=== PATIENT | female | born 1960 | race Caucasian/White ===

== ENCOUNTER 2018-02-10 16:16 | Emergency (ER) | payer MEDICAID, SELFPAY ==
[2018-02-10 16:17] VITALS: BP 115/78; PULSE 85; RESP 16; TEMP 36.4; O2SAT 98; BMI 27.4
[2018-02-10 16:20] VITALS: O2SAT 98
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
[2018-02-10] MEDS: 0.9% Normal Saline 1,000 ML 150 ML IV (16:35)
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
[2018-02-10 16:59] LABS: Absolute Lymphocyte Count 3.02 X10^3/ul (0.83-4.51); Absolute Neutrophil Count 9.2 X10^3/uL (2.0-7.7); Basophil# 0.04 X10^3/uL; Basophil% 0.3 % (0-1); Eosinophil# 0.61 X10^3/uL; Eosinophils% 4.5 % (0-5); Hematocrit 35.7 % (37-47); Hemoglobin 10.8 g/dl (12.0-15.0); Lymphocyte # 3.02 X10^3/ul (4.0); Lymphocyte % 22.4 % (19-41); Mean Corp Hgb Conc 30.3 g/gl (32-36); Mean Corpuscular Hgb 29.3 pg (27.0-32.0); Mean Platelet Vol. 11.4 fl (6.2-12.0); Monocyte# 0.64 X10^3/uL; Monocyte% 4.7 % (0-10); Neutrophil # 9.16 X10^3/uL (2.7-7.7); Neutrophil % 67.8 % (47-70); Platelet Count 206 K/mm3 (150-450); RBC Distribution Width SD 49.3 fl (35.1-43.9); Red Blood Count 3.68 M/mm3 (4.2-5.4); White Blood Count 13.5 K/mm3 (4.4-11.0)
[2018-02-10 17:00] LABS: POSITIVE COUNT NO; POSITIVE DIFFERENTIAL NO; POSITIVE MORPHOLOGY NO; Partial Thromboplast Time 27.6 Seconds (24.1-36.2)
[2018-02-10 17:03] LABS: Prothrombin Time (Protime)PT. 13.4 SECONDS (11.7-14.9)
[2018-02-10 17:04] LABS: AST(SGOT) 33 U/L (15-37); Alanine Aminotransfer ALT/SGPT 26 U/L (13-56); Alkaline Phosphatase 94 U/L (45-117); Anion Gap 5 (5-15); BUN 31 mg/dL (7-18); BUN/Creat Ratio 19.5 RATIO (10-20); Bilirubin, Direct 0.09 mg/dL (0.00-0.30); Calcium,Total 8.3 mg/dL (8.5-10.1); Chloride 112 mmol/L (98-107); Creatinine, Serum 1.59 mg/dL (0.55-1.02); EST Glomerular Filtration Rate 35 mL/min (>60); Est Glom Filt Rate - Afr Amer 43 mL/min (>60); Globulin 4.3 g/dL (2.2-4.2); Glucose 156 mg/dL (74-106); Potassium 4.2 mmol/L (3.5-5.1); Protein, Total 7.3 g/dL (6.4-8.2); Sodium Level 141 mmol/L (136-145)
[2018-02-10 17:50] LABS: Mucous, Urine 0 SEEN /hpf (<or=2+)
[2018-02-10 17:55] LABS: Color, Urine Yellow (Yellow); Glucose, Dipstick Normal (Normal); Ketone-Dipstick Negative (Negative); Leukocyte Esterase-Dipstick 100 /ul (Negative); Nitrite-Dipstick Negative (Negative); Occult Blood-Urine 150 /ul (Negative); Protein-Dipstick 100 mg/dl (Negative); Specific Gravity, Urine 1.015 (1.002-1.030); Urine Clarity Cloudy (Clear); Urine Urobilinogen Normal (Normal)
[2018-02-10 18:00] LABS: Urine Bilirubin Dipstick 1 mg/dL (Negative)
--- NOTE | 2018-02-10 18:11 | NURSING ---
YONG JEFFERSON ACCEPTING DR MONIKA BLANK NO REPORT NECESSARY
[2018-02-10 18:15] VITALS: BP 101/40; PULSE 70; RESP 15; O2SAT 97
[2018-02-10 18:16] LABS: Bacteria 1+ /hpf (None Seen); Red Blood Cells-Urine 5-10 SEEN /hpf (0-5); Squamous Epithelial Cells - UA 5-10 SEEN /hpf (5-10); White Blood Cells 10-25 SEEN /hpf (0-5)
[2018-02-10 18:30] VITALS: BP 101/40; PULSE 74; RESP 17; O2SAT 97
--- NOTE | 2018-02-10 19:41 | ED.RN ---
VERBAL REPORT GIVEN TO EMS. DENIES QUESTIONS.
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
== END 2018-02-10 19:42 | disposition short-term general hospital (02) ==
PROVIDERS: Emergency Provider Emergency Medicine; Family Provider Internal Medicine; PCP Internal Medicine
DX: S22.081A Stable burst fracture of T11-T12 vertebra, initial encounter for closed fracture (principal); S32.018A Other fracture of first lumbar vertebra, initial encounter for closed fracture; S30.1XXA Contusion of abdominal wall, initial encounter; S27.321A Contusion of lung, unilateral, initial encounter; V43.62XA Car passenger injured in collision with other type car in traffic accident, initial encounter; Y93.89 Activity, other specified; Y92.9 Unspecified place or not applicable; K21.9 Gastro-esophageal reflux disease without esophagitis; Z86.73 Personal history of transient ischemic attack (TIA), and cerebral infarction without residual deficits; Z87.19 Personal history of other diseases of the digestive system; Z90.5 Acquired absence of kidney; Z79.899 Other long term (current) drug therapy
CPT/HCPCS: 71250; 73130; 73564; 74176; 80048; 80076; 81001; 85025; 85610; 85730; 96360; 96361; 99285; J7030; A4216

== ENCOUNTER → 2018-03-03 11:34 | Outpatient (CLI) | payer MEDICAID, SELFPAY ==
--- NOTE | 2018-03-03 11:36 | VDLE_ITS ---
Reason For Study: LEG SWELLING RIGHT LEFT GSV is normal. GSV is normal. CFV is compressible, spontaneous, phasic, CFV is compressible, spontaneous, phasic, competent and demonstrates normal competent, and demonstrates normal augmentation. augmentation. FV is compressible, spontaneous, phasic, FV is compressible, spontaneous, phasic, competent and demonstrates normal competent and demonstrates normal augmentation. augmentation. POP V is compressible, spontaneous, phasic, POP V is compressible, spontaneous, phasic, competent and demonstrates normal competent and demonstrates normal augmentation. augmentation. T/P Trunk is compressible. T/P Trunk is compressible. PTV is compressible. PTV is compressible. RT PerV is compressible. LT PerV is compressible. Procedure Exam performed in department. A preliminary report was called and/or faxed to Dr. Casper. Interpretation Summary Deep veins of the lower extremities are bilaterally patent and compressible segmentally. There is no evidence of deep vein thrombosis on either side. Valvular competence appears intact within the proximal deep venous systems bilaterally. The greater saphenous veins appear bilaterally patent and compressible segmentally. Ordering Physician: Estefania Casper Performed By: Marilee Aceves RVT
== END ==
PROVIDERS: Family Provider Internal Medicine; PCP Internal Medicine; Visit Provider Internal Medicine
DX: R60.0 Localized edema (principal)
CPT/HCPCS: 93970

== ENCOUNTER → 2018-08-18 09:05 | Outpatient (CLI) | payer MEDICAID, SELFPAY ==
--- NOTE | 2018-08-18 09:09 | RAD_ITS ---
STUDY: X-RAY - LEFT HAND, ATTENTION FOURTH FINGER REASON FOR EXAM: Bent finger, no specific injury. TECHNIQUE: 3 view(s) of the finger were obtained. COMPARISON: None. FINDINGS: Normal metacarpal head. Normal metacarpophalangeal joint. Normal proximal phalanx. Normal middle phalanx. Normal distal phalanx. Normal proximal interphalangeal joint. There is flexion deformity at the distal interphalangeal joint. RAD/Finger(s) Min 2 Views IMPRESSION: Flexion deformity at the distal interphalangeal joint. Electronically Signed: Edison Carrillo MD at 9:35 EDT Tel , Service support ,
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
== END ==
PROVIDERS: Family Provider Internal Medicine; PCP Internal Medicine; Referring Provider Orthopaedic Surgery; Visit Provider Orthopaedic Surgery
DX: M21.242 Flexion deformity, left finger joints (principal); M25.532 Pain in left wrist; M79.602 Pain in left arm
CPT/HCPCS: 73030; 73060; 73090; 73110; 73140

== ENCOUNTER → 2018-10-03 13:54 | Outpatient (CLI) | payer MEDICAID, SELFPAY ==
--- NOTE | 2018-10-03 13:56 | ECHOD_ITS ---
Reason For Study: MVP Procedure This was a 2D Doppler, Color Flow transthoracic echocardiogram. Exam performed in department. Left Ventricle Normal LV size. Left ventricular systolic function is normal. The estimated ejection fraction is 65 %. The global longitudinal strain = -22 % (normal). There is evidence of diastolic dysfunction. No regional wall motion abnormalities noted. Right Ventricle Normal RV size. Normal systolic function. Atria Normal left atrium. Normal right atrium. No doppler evidence for ASD. Mitral Valve There is no mitral annular calcification. Normal mitral valve. Trivial mitral valve insufficiency. Tricuspid Valve Normal tricuspid valve. Mild tricuspid valve insufficiency. Right ventricular systolic pressure estimated to be 39 mmHg. Aortic Valve Trisinus/trileaflet aortic valve. Normal aortic valve. Pulmonic Valve The pulmonic valve is not well visualized. Trivial pulmonic valve insufficiency. Great Vessels Normal sized aortic root. Pericardium/Pleural No pericardial effusion. MMode/2D Measurements & Calculations LVIDd: 4.6 cm IVSd: 0.89 cm Ao root diam: 2.5 cm LVIDs: 3.0 cm LVPWd: 0.80 cm RVDd: 3.1 cm FS: 34.2 % LAV(MOD-bp): 36.6 ml LA A4 area: 16.1 cm2 LA dimension(2D): 3.9 cm LAV(MOD-bp) Indexed: 20.4 ml/m2 LAV(MOD-sp2): 31.4 ml LAV(MOD-sp4): 43.9 ml RA A4 area: 12.0 cm2 Time Measurements MV dec time: 0.19 sec Doppler Measurements & Calculations MV E max lopez: 114.0 cm/sec Lat Peak E' Lopez: 9.8 cm/sec Med Peak E' Lopez: 6.7 cm/sec MV A max lopez: 84.2 cm/sec E/E' lat: 11.6 E/E' med: 17.0 MV E/A: 1.4 Ao V2 max: 132.7 cm/sec LV V1 max: 102.8 cm/sec PA V2 max: 94.1 cm/sec Ao max P.0 mmHg LV V1 max P.2 mmHg PI end-d lopez: 111.1 cm/sec TR max lopez: 301.2 cm/sec TR max P.3 mmHg Interpretation Summary Left ventricular systolic function is normal. The estimated ejection fraction is 65 %. The global longitudinal strain = -22 % (normal). Trivial mitral valve insufficiency. Mild tricuspid valve insufficiency. Trivial pulmonic valve insufficiency. Right ventricular systolic pressure estimated to be 39 mmHg. There is evidence of diastolic dysfunction. Ordering Physician: Reji Fatima Referring Physician: MARIA LUISA TAYLOR Performed By: Surekha Alcazar, CHANTELLCS, RVT
== END ==
PROVIDERS: Family Provider Internal Medicine; PCP Internal Medicine; Referring Provider Internal Medicine Cardiovascular Disease; Visit Provider Internal Medicine Cardiovascular Disease
DX: I34.1 Nonrheumatic mitral (valve) prolapse (principal); I27.29 Other secondary pulmonary hypertension; R55 Syncope and collapse
CPT/HCPCS: 93306

== ENCOUNTER 2018-12-12 12:00 | Outpatient (RCR) | payer MEDICAID, SELFPAY ==
--- NOTE | 2018-08-18 12:21 | HP.OTEVAL_ITS ---
Patient's Visit Information GABINO MILLS is a 58 year old F, referred to Occupational Therapy by Shwetha Meehan DO, with a diagnosis of L RF Mallet Finger. Date of Evaluation: 08/18/18 Occupational Therapist: Mariela Zhao - Subjective Subjective: Arrived s/p Dr. Ghosh visit. Noted she was cutting grass 2 + month ago when first noticing mallet finger. She has since had fall at [employer] over weekend increasing symptoms and bruising L UE. Noted and observed bruising at elbow over olecranon and thenar eminence. No x-rays per Pt. report on these areas just xrays around finger. She has follow up with Dr. Casper later today. Completed all tasks t/o session only as tolerated with pain. She verbalized understanding not to force mvmts. - Objective Objective/Observation: bruising over olecranon, and at thumb at thenar eminence. No open wounds noted and skin intact but bruised. Grimace noted with pinch. and completed within tolerance. - ROM Shoulder: WFL Elbow: WFL- some pain noted Forearm: WFL Wrist: WFL CMC: WFL but some pain noted MP: RF R 0-93, L 0-95 PIP: RF R 0-104, L 0-92 DIP: RF R 0-85 flexion, R ext 0-10 ; L -52--52 forward flexed no active movement ROM Comments: RF L DIP mallet finger deformity with no active movement palpated. Difficulty getting to neutral position. Able to get to neutral and slight hyperext. Difficulty to get into 10-15 degrees hyper ext. Made gutter splint and will adjust later in week as needed. - Strength Home Health Clinical Liaison: R 58, L 44 Lateral Pinch: R 13, L 9- pain increased 2-3 pain. Educated to stop when pain in creased. Tripod Pinch: R 14, L 7- pain increased 2-3 pain. Educated to stop when pain increased. - Sensation Sensation Comments: denies changes in numbness/tinging. - Hand/Wrist Evaluation Total Score of Pain & Functional Sections: 25 - Goals Goal:: Gabino to increased L field marketing associate hand as and when appropriate in/out of splint by 15-20 lbs to promote increased ability to manipulate self care tasks by d/c. Goal:: Gabino to show neutral alignment of L RF DIP to reduce risk of further mallet finger deformity by end of conservative management at 8-10 weeks to promote returning to PLOF by d/c. Goal:: Gabino to be (i) to follow and wear splint consistently for next 8-10 weeks to promote decreased extensor lag and promote alignment of DIP 100% of the time to reduce risk of deformity by d/c. - Rehabilitation General Assessment: OT evaluation on this date 08/18/18. She had original injury to RF about 2 month ago. L RF exhibits increased extensor lag and mallet finger deformity with inability to complete active ROM for flexion or extension at RF DIP. Able to passively move L RF to neutral with increased force but increased difficulty getting to hyperext. position. OT to address splint fit and usage as well as ROM of PIP and MCP to promote decreased stiffness and promote integrity of extensor tendon to help increased ROM L RF and Pt. ability to use L dominant hand for ADl/IADls at PLOF. Rehabilitation Potential: Good - Anticipated Interventions Anticipated Interventions: A/AAROM/PROM, Strengthening, Edema Control, Scar Care, Orthoses, Joint Protection/Energy Conservation, Ergonomic Education, Fine Motor Coord/Paco, ADL Training, Caregiver Training, Home Program - Visit Plan Frequency: 1x this week; 2x after Duration: 3 Weeks General Plan: OT to work on proper splint fit and ensure correct alignment of L RF DIP to decrease extensor lag and promote healing of extensor tendon to decrease risk of deformity of mallet finger. OT to complete ROM, strength, and education to reduce stiffness of other joints and promote returning to PLOF. POC for 3 sessions to promote splint fit and get set up on HEP. TEXT: Thank you for the opportunity to evaluate your patient. For Medicare and Medicare HMO plans, please review the plan of care and approve it. It will need to be FAXED BACK to us at [phone] for Medicare purposes. Please let me know if there are questions or concerns regarding this plan of care. Physician Signature: Date:
--- NOTE | 2018-08-29 11:02 | HP.OTCOM ---
OT Communication Note 08/29/[address] Shwetha Meehan, DO A gutter and stax splint was fabricated for Maryam for Mallet finegr deformity on L RF. She has 3x follow up appointment from initial evaluation to promote fit. Due to h/o CVA and confusion post CVA she has arrived last two session with splint donned incorrectly. Labels on splint, pictures, and practice while in session has been provided. Will continue to work on correct donning of splint but carryover have been variable at this time. Sincerely, Mariela Zhao, OTR/L Contact Information
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
--- NOTE | 2018-10-27 18:27 | OTREVAL_ITS ---
Shwetha Meehan, DO, It has been my pleasure to treat GABINO MILLS over the last 6 visits for L RF Mallet Finger. Please see the progress note below for an update on the occupational therapy plan of care! Subjective: Arrived and noted saw 'Dr. Olvera' and noted things going well. Objective/Function: Completed new measurements on this date and are as follows: ROM: Wrist: - flexion: R WNL, L 0-73. - extension: R WNL , L 0-47. Finger L RF. MCP: R WNL, L 0-77. PIP: R WNL, L 0-106. DIP: R WNL, L 9-0-31- still 9 degrees extensor lag out of brace. Finger is healing is nicely and is addie to be passively moved to neutral alignment. Strength: Hydro Pneumatic Tester R 57, L 35 lbs. Lateral R 12, L 16 lbs. Tripod R 11, L 10 lbs. L RF has significantly increased in alignment and extensor lag is decreased but still slightly noted. She has progressed since inital evaluation with alignment. Plan Frequency: 1x/Week - Splint check Duration: 4 Weeks Visits in this POC: 4 Plan: She is to continue POC. Will complete 1x weekly OT program to promote continue HEP and decreasing frequency of splint use. She is to continue splint at this time for night and daytime use. She is to start removing at night when watching TV or completing light ROM as previously set up as HEP. Educated to watch skin integrity and noted tape stax splint on as tight. Additionally, she was educated to watch for extensor lag and if occurring splint is to be donned. Goals - Goals Goal:: Gabino to increased L loans consultant hand as and when appropriate in/out of splint by 15-20 lbs to promote increased ability to manipulate self care tasks by d/c. Goal:: Gabino to show neutral alignment of L RF DIP to reduce risk of further mallet finger deformity by end of conservative management at 8-10 weeks to promote returning to PLOF by d/c. Goal:: Gabino to be (i) to follow and wear splint consistently for next 8-10 weeks to promote decreased extensor lag and promote alignment of DIP 100% of the time to reduce risk of deformity by d/c. Anticipated Interventions Anticipated Interventions: A/AAROM/PROM, Strengthening, Edema Control, Scar Care, Orthoses, Joint Protection/Energy Conservation, Ergonomic Education, Fine Motor Coord/Paco, ADL Training, Caregiver Training, Home Program Please do not hesitate to contact me at [phone] by phone or if you have questions or concerns regarding this new plan of care! Sincerely, Mariela Zhao
--- NOTE | 2018-11-28 12:49 | OTREVAL_ITS ---
Shwetha Meehan, DO, It has been my pleasure to treat GABINO MILLS over the last 10 visits for L RF Mallet Finger. Please see the progress note below for an update on the occupational therapy plan of care! Subjective: Arrived with no splint on and noted that she is doing well and noted that she 'feels like it is getting droopy' but has not donned splint as mother told her 'it was fine'. Mother not at appointmet. OT has been communicating with handouts of written instructions with Pt. that she reports to also be sharing with mother. She feels finger is 55% back to PLOF. Objective/Function: Re-assessment completed today of 11/28/17. Increased in extensor lag noted from previous measurements. Some discomfort with palpation but able to move to neutral position. Measurements are as follows: ROM. RF. MCP R WNL, L 0-90. PIP R WFL, L -5-0-106. DIP R WFL, L 22-70 with increased in extensor lag to 25 degrees after formation of composite fist. Limited extension of DIP noted with isolation movement. Strength is as follows: Medical Insurance Claims Processor: R 78, L 70 lbs. Lateral: R 12, L 13 lbs. Tripod: R 13, L 10 lbs. Pincer R 9, L 8 lbs. Measurements from previous week of 11/21/18: Extensor lag at arrival at -9. Completed new measurements on this date 11/21/17 and measurements as follows: ROM L hand only: MCP RF 0-90, PF 0-84. PIP RF-7-0-107, PF 0-102. DIP RF 9-53, PF 0-80. Strength : Medical Insurance Claims Processor R 75, L 69. lateral R 12, L 12. tripod R 12, L 11. Extensor lag of 9 degrees consistent throughout activity. Limited extension of DIP noted with isolation movement. Lag does not appear to increase with movement but remains consistent at listed measurements. 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 She is able to retain material gone over in session but carryover at home is variable. Plan Frequency: Every Other Week Duration: 4 Weeks Visits in this POC: 2 Plan: After reassessment and increased extensor lag from previous measurements she will have 2x more follow ups every other week for next four weeks. SHe is to complete reducing time in splint by removing splint [id number] mins, and if no drooping occurs can keep off for 30 mins. During time splint is off, she is to be misti taping finger. 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 She is able to retain material gone over in session but carryover at home is variable. Multiple handouts have been provided for her and mother to complete carryover Goals - Goals Goal:: Gabino to increased L remote pilot operator hand as and when appropriate in/out of splint by 15-20 lbs to promote increased ability to manipulate self care tasks by d/c. Goal:: Gabino to show neutral alignment of L RF DIP to reduce risk of further mallet finger deformity by end of conservative management at 8-10 weeks to promote returning to PLOF by d/c. Goal:: Gabino to be (i) to follow and wear splint consistently for next 8-10 weeks to promote decreased extensor lag and promote alignment of DIP 100% of the time to reduce risk of deformity by d/c. Anticipated Interventions Anticipated Interventions: A/AAROM/PROM, Strengthening, Edema Control, Scar Care, Orthoses, Joint Protection/Energy Conservation, Ergonomic Education, Fine Motor Coord/Paco, ADL Training, Caregiver Training, Home Program Please do not hesitate to contact me at [phone] by phone or if you have questions or concerns regarding this new plan of care! Sincerely, Mariela Zhao
--- NOTE | 2018-12-12 12:59 | HP.OTDCSUM_ITS ---
HP - OT D/C Summary It has been my pleasure to treat MARYAM MILLS under orders from Shwetha Meehan DO, for the diagnosis of L RF Mallet Finger for a total of 11 visit(s). Please see the following information for a summary of their discharge status. - Overall Improvement % Improvement: 80 - Objective Objective/Function: Completed measurements on this date of 12/12/18. Measurements are as follows: L hand only: MCP. RF L 0-89. PF L 0-90. PIP. RF L -10-0-111 some hyper extension noted at PIP. PF 0-110. DIP. RF -30 degrees extensor lag. There is not active movement but passively is able to move to neutral position. PF 0-78. Strength: Supervisor Belt And Link Assembly 61, L 59. lateral R 14, L 12. three jaw R 12, L 10. tip pinch R 6, L 10. Re-assessment completed previously on 11/28/17. Increased in extensor lag noted from previous measurements. Some discomfort with palpation but able to move to neutral position. Measurements are as follows: ROM. RF. MCP R WNL, L 0-90. PIP R WFL, L -5-0-106. DIP R WFL, L 22-70 with increased in extensor lag to 25 degrees after formation of composite fist. Limited extension of DIP noted with isolation movement. Strength is as follows: Supervisor Belt And Link Assembly: R 78, L 70 lbs. Lateral: R 12, L 13 lbs. Tripod: R 13, L 10 lbs. Pincer R 9, L 8 lbs. Measurements from previous week of 11/21/18: Extensor lag at arrival at -9. Completed new measurements on this date 11/21/17 and measurements as follows: ROM L hand only: MCP RF 0-90, PF 0-84. PIP R F-7-0-107, PF 0-102. DIP RF 9-53, PF 0-80. Strength : Supervisor Belt And Link Assembly R 75, L 69. lateral R 12, L 12. tripod R 12, L 11. Extensor lag of 9 degrees consistent throughout activity. Limited extension of DIP noted with isolation movement. Lag does not appear to increase with movement but remains consistent at listed measurements. Measurements are significantly decreased from measurements 11/28/18. OT has exhausted all methods to promote carryover with client. She is to go back to splint with frequent breaks of no splint t/o the day. She regressed and therapy is not longer appropriate. - Goals Patient Goals: Regain Mobility, Regain Strength, Decrease Swelling/Stiffness, Improve Fine Motor Skills, Use Hand/Wrist/Arm Normally Again, Increase ROM, Be More Independent in ADLS, Resume Former Household Responsibilities (Cooking,Cleaning,Yard, etc.), Resume Hobbies Goal:: Maryam to increased L peanut roaster hand as and when appropriate in/out of splint by 15-20 lbs to promote increased ability to manipulate self care tasks by d/c. Goal:: Maryam to show neutral alignment of L RF DIP to reduce risk of further mallet finger deformity by end of conservative management at 8-10 weeks to promote returning to PLOF by d/c. Goal:: Maryam to be (i) to follow and wear splint consistently for next 8-10 week s to promote decreased extensor lag and promote alignment of DIP 100% of the time to reduce risk of deformity by d/c. - Plan Plan: Maryam will discharged today. She enjoys coming in to therapy but notes she has 'plenty at home to complete'. Compliance has been variable due to h/o of CVA and STM deficits but multiple handouts have been provided to mother and Pt. Pt. is understanding and completing donning splint when increase in extensor lag of L RF DIP is observed. She is to return to doctor if symptoms continue to get worse. She is to call with questions and concerns. - D/C Information If there are questions or concerns regarding this patient's occupational therapy, please fell free to call me at [phone]. Thank you for the referral of this patient. Sincerely, Mariela Zhao
== END 2018-12-12 19:00 | disposition home or self-care (01) ==
LOC: OT 12:00
PROVIDERS: Family Provider Internal Medicine; PCP Internal Medicine; Referring Provider Orthopaedic Surgery; Visit Provider Orthopaedic Surgery
DX: M20.012 Mallet finger of left finger(s) (principal); M21.242 Flexion deformity, left finger joints; M25.532 Pain in left wrist; M79.602 Pain in left arm
CPT/HCPCS: 73030; 73060; 73090; 73110; 73140; 97166; 97168; 97530; 97760; 97763

== ENCOUNTER → 2018-12-25 14:01 | Outpatient (CLI) | payer MEDICAID, SELFPAY ==
--- NOTE | 2018-12-25 14:04 | CT_ITS ---
HISTORY: LOW ABD PAIN-, PREV LT NEPHRECTOMY, history of HTN,CVA, GERD, CKD-STAGE 2 ASTHMA TECHNIQUE: Helically acquired images were obtained of the abdomen and pelvis without oral or IV contrast as per renal stone protocol. A radiation dose optimization technique was used for this scan. IV Contrast dosage and agent: None. Oral contrast: Yes COMPARISON: CT chest abdomen and pelvis 02/10/2018 FINDINGS: LOWER CHEST: Bibasilar chronic interstitial scarring. No pleural effusion. Previous gastric surgery. Cholecystectomy surgical clips within the gallbladder fossa. No biliary dilatation. Limited non-infusion exam. Allowing for this, the liver, spleen, and pancreas show no CT abnormality. Previous left nephrectomy. The right kidney is normal in position and shows 2 small calyceal stones at the lower pole and an additional small calyceal stone in the midpole. No ureteral stones and no hydronephrosis or hydroureter. The right and left adrenal glands are not enlarged. Abdominal aorta is atherosclerotic and is normal in caliber. No ascites or retroperitoneal lymph node enlargement. GI tract: No obstruction. Normal appendix. No pericolonic inflammatory changes. Pelvis: Hysterectomy. Urinary bladder is poorly distended. The pelvis shows no free fluid or lymphadenopathy. Bones: No acute osseous abnormality. CT/Abdomen/Pelvis without Cont IMPRESSION: 1. No free fluid or acute disease. 2. Right renal small nonobstructing stones, unchanged. Previous left nephrectomy and additional postsurgical changes, as above. 3. Bibasilar mild pulmonary interstitial scarring. Individualized dose optimization techniques were used for this CT. at 0747 Reported and signed by: Rodger Coleman MD Electronically Signed: Rodger Coleman, at 7:46 EST Tel , Service support ,
== END ==
PROVIDERS: Family Provider Internal Medicine; PCP Internal Medicine; Referring Provider Internal Medicine; Visit Provider Internal Medicine
DX: N20.0 Calculus of kidney (principal); R10.30 Lower abdominal pain, unspecified; Z90.5 Acquired absence of kidney
CPT/HCPCS: 74176

== ENCOUNTER 2019-02-09 15:11 | Inpatient (IN) | payer MEDICAID, SELFPAY ==
[2019-02-09] VITALS (11 sets, daily range): BP systolic 101–124; BP diastolic 55–90; PULSE 73–84; RESP 17–32; TEMP 36.6–37.1; O2SAT 81–96; BMI 24.4; BMI 23.1
--- NOTE | 2019-02-09 15:34 | EKG12_ITS ---
Test Reason : SOB Blood Pressure : / mmHG Vent. Rate : 073 BPM Atrial Rate : 073 BPM P-R Int : 154 ms QRS Dur : 094 ms QT Int : 398 ms P-R-T Axes : 020 038 079 degrees QTc Int : 438 ms Normal sinus rhythm Nonspecific ST and T wave abnormality Abnormal ECG Confirmed by LYNN BARNETT, HEIDY ([id number]), editor map KATHRYN RUBI ([id number]) on 02/11/2019 1:28:01 PM Referred By: Tony Go Confirmed By:HEIDY BAILEY MD
--- NOTE | 2019-02-09 15:38 | ED.VISSUMM ---
- ER Visit Summary Date of Service: 02/09/19 Chief Complaint: Shortness of breath History of Present Illness: The patient is a 58 F who complains of nausea, vomiting, diarrhea, body aches, chills, and cough all weekend. She went to PCPs office today and her O2 sat was noted to be in the 70s. She is placed on oxygen and EMS was called for transport. Patient has a history of asthma. She states that she used her inhalers this week but did not seem to help. She denies chest pain. She has very minimal complaint of shortness of breath. Physical Examination: Blood pressure is 101/90, temperature 98.5, heart rate 77, respiratory rate 28, pulse ox 94% on 3 L nasal cannula. Patient is sitting upright in bed. She is slightly tachypneic but in no distress. She is speaking full sentences. Head neck examination grossly unremarkable. Heart is regular rate and rhythm. Lung sounds are with mild crackles at the left base. Abdomen is soft with mild epigastric tenderness. Lower extremity examination reveals no calf tenderness or edema. Test Results: CBC was a white count of 14.1. Hemoglobin 11.6 and hematocrit is 35.5. Chemistry studies were potassium of 2.4. BUN is 27 and creatinine is 1.86. Influenza swab is negative. Troponin is less than 0.015. BNP is 130. D-dimer is 1.43. EKG is sinus at 73 with no sign of acute ischemia. Portable chest x-ray is atypical pulmonary edema, worse on the left. Emergency Department Course and Treatment: Patient was given potassium p.o. I was able to review prior records in clinic sink. Her creatinine was 1.11 in January 2018. Hospitalist and I both spoke with the patient regarding need for CTA and her borderline renal function. All agreed that we would hydrate her with IV fluids and perform the CT. CTA of the chest reveals no evidence of PE or dissection. There is patchy groundglass airspace disease bilaterally suggesting pulmonary edema. At this time patient's oxygen saturations are stable on oxygen. She will be admitted for further treatment and evaluation. Treatment Plan: [] Disposition: Admit Impression: 1. Hypoxia 2. Hypokalemia 3. Viral syndrome This note was generated with Aus[employer]ation software. It may contain incorrect words, spelling, and punctuation that were not noted in review of the chart prior to signing ED Disposition - Plan for ED Patient: Disposition: Acute Care Hospital [facility]
--- NOTE | 2019-02-09 15:40 | RAD_ITS ---
STUDY: X-RAY CHEST REASON FOR EXAM: Female, 58 years old. Shortness of breath and generalized illness and weakness. TECHNIQUE: Single AP portable view of the chest. COMPARISON: Comparison is made with prior chest radiograph dated January 13, 2014. FINDINGS: EKG electrodes are seen. There is evidence of airspace disease in the left hemithorax with evidence of a perivascular congestion on the right side. This most likely represents pulmonary edema worse on the left side. Radiographic follow-up is recommended. There is no demonstrated pleural abnormality. Normal size heart. Normal mediastinum and fritz. Normal visualized pulmonary arteries. Normal visualized aortic arch and descending thoracic aorta. Normal visualized thoracic spine. Normal visualized ribs, clavicles, and shoulders. There is no demonstrated abnormality of the visualized soft tissue structures of the upper abdomen. RAD/Chest 1 View (Portable) IMPRESSION: Findings suggestive of atypical pulmonary edema worse on the left side. Electronically Signed: Puneet Rajput, at 15:58 EDT , Service support ,
[2019-02-09] MEDS: 0.9% Normal Saline 1,000 ML 15 ML IV (15:41)
[2019-02-09 16:00] LABS: Absolute Lymphocyte Count 2.42 X10^3/ul (0.83-4.51); Absolute Neutrophil Count 9.2 X10^3/uL (2.0-7.7); Basophil# 0.07 X10^3/uL; Basophil% 0.5 % (0-1); Eosinophil# 1.29 X10^3/uL; Eosinophils% 9.1 % (0-5); Hematocrit 35.5 % (37-47); Hemoglobin 11.6 g/dl (12.0-15.0); Lymphocyte # 2.42 X10^3/ul (4.0); Lymphocyte % 17.1 % (19-41); Mean Corp Hgb Conc 32.7 g/gl (32-36); Mean Corpuscular Hgb 29.1 pg (27.0-32.0); Mean Corpuscular Volume 89.2 fL (81-99); Mean Platelet Vol. 10.4 fl (6.2-12.0); Monocyte# 1.04 X10^3/uL; Monocyte% 7.4 % (0-10); Neutrophil % 65.1 % (47-70); POSITIVE COUNT NO; POSITIVE DIFFERENTIAL NO; POSITIVE MORPHOLOGY NO; Platelet Count 372 K/mm3 (150-450); RBC Distribution Width CV 15.2 % (11.6-14.6); RBC Distribution Width SD 49.4 fl (35.1-43.9); Red Blood Count 3.98 M/mm3 (4.2-5.4); White Blood Count 14.1 K/mm3 (4.4-11.0)
[2019-02-09 16:07] LABS: D-Dimer Quantitative (DVT/PE) 1.43 FEU/ug/m (0.27-0.49)
--- NOTE | 2019-02-09 16:09 | ED.RN ---
ddimer 1.43 called from the lab dr humberto singer
[2019-02-09 16:27] LABS: BNP,B-Type NATRIURETIC PEPTIDE 130.4 pg/mL (0-100)
[2019-02-09 16:29] LABS: AST(SGOT) 50 U/L (15-37); Alanine Aminotransfer ALT/SGPT 26 U/L (13-56); Albumin, Serum 2.5 g/dL (3.2-5.0); Alkaline Phosphatase 133 U/L (45-117); Anion Gap 9 (5-15); BUN 27 mg/dL (7-18); BUN/Creat Ratio 14.5 RATIO (10-20); Bilirubin, Direct 0.16 mg/dL (0.00-0.30); Calcium,Total 8.7 mg/dL (8.5-10.1); Chloride 105 mmol/L (98-107); Creatinine, Serum 1.86 mg/dL (0.55-1.02); EST Glomerular Filtration Rate 29 mL/min (>60); Est Glom Filt Rate - Afr Amer 36 mL/min (>60); Estimated Creatinine Clearance 31.67 ml/min; Globulin 5.4 g/dL (2.2-4.2); Glucose 100 mg/dL (74-106); Lipase 85 U/L (73-393); Potassium 2.4 mmol/L (3.5-5.1); Protein, Total 7.9 g/dL (6.4-8.2); Sodium Level 137 mmol/L (136-145)
--- NOTE | 2019-02-09 16:51 | CT_ITS ---
STUDY: CTA CHEST REASON FOR EXAM: Female, 58 years old. Shortness of breath RADIATION DOSAGE (If Supplied By Facility): CTDIvol = ( 10.20 ) mGy, DLP = ( 373.56 ) mGycm TECHNIQUE: The examination was performed with the intravenous administration of Isovue 370 75 IV. Post-processing of the angiographic images was performed, with multiplanar reformation and 3D reconstruction. Individualized dose optimization techniques were used for this CT. COMPARISON: None. FINDINGS: Normal enhancement of the main pulmonary artery and right and left pulmonary arteries. Normal enhancement of the bilateral peripheral pulmonary arteries. There is no demonstrated pulmonary embolism. There is prominence of the main pulmonary arteries without peripheral pulmonary vascular congestion, suggesting pulmonary hypertension. Normal thoracic aorta and visualized great vessels. There is no demonstrated aortic dissection. Mild cardiomegaly. Normal pericardium. Small mediastinal lymph nodes, nonspecific Normal hilar regions. Normal visualized trachea and bronchi. Lungs are mildly hypoinflated. Diffuse patchy groundglass airspace disease noted bilaterally suggesting pulmonary edema No evidence of pleural effusions at this time Normal chest wall structures. Normal osseous structures. Normal visualized upper abdomen. CT/CTA Chest W/WO Contrast IMPRESSION: Negative for pulmonary embolism or thoracic aortic dissection. Diffuse patchy groundglass airspace disease noted bilaterally suggesting pulmonary edema. Appearance of pulmonary artery hypertension. Electronically Signed: Florentin Serna DO at 18:33 EDT Tel , Service support ,
[2019-02-09] MEDS: 0.9% Normal Saline 1,000 ML 150 ML IV (17:15)
--- NOTE | 2019-02-09 18:10 | CASEMGMT ---
RN CM Assessment Introduced role of RN CM to patient and mother Ernesto Stock at bedside.? Patient is alert, oriented and able?to participate in RN CM Assessment. ?Care providers, pharmacy, and demographics verified. Presentation: SOB, N/V/D, Cough, Chills, Body aches. At PCP today O2 sat in 70's, referred to ER via EMS. Findings: Cxr- sugg. Atypical Pulmonary edema, worse left side. Elevated D-dimer, getting CTA chest. Hypokalemia. Re-Admit: No Barriers/Issues: None PCP: Estefania Casper Specialists: Cardio- Akua, Neuro- Rusty @[facility], Psych- Pritchard @[facility], Nephro- Jayden, GI- Birgit? Preferred Pharmacy: [facility] Insurance: [employer] Rx Benefit:?Yes ?LNOK: Mother Ernesto Stock LW/HPOA: Yes- HPOA Mother Ernesto Stock Living Arrangements:? Lives alone in a SS Home, Split level, approx 12 steps. When patient doesn't feel well will stay with mother who lives couple houses away and has 2 steps to enter her home also has a Chair lift to go down her steps which patient does not normally go down stairs. ADL?s: Independent with ambulation, uses cane prn. Independent with ADL's Transportation: Mother drives and will drive on DC DME: Cane HHC: None SNF: None Goal: Home DC PLAN: Home with possible Home O2. [facility] Cr[facility]tree
[2019-02-09] MEDS: levoFLOXacin IV 750 MG/150 ML BAG 100 MG IV (20:55)
[2019-02-09] MEDS: Montelukast 10 MG Tablet PO (20:56)
[2019-02-09] MEDS: Atorvastatin Calcium 10 MG Tablet PO (21:17)
[2019-02-09] MEDS: busPIRone 15 MG TABLET PO (21:17)
[2019-02-09] MEDS: 0.9% NaCl Peripheral Flush Adult/Peds IV ×2 (21:55→23:06)
--- NOTE | 2019-02-09 22:12 | HP.PCM_ITS ---
Problem List (1) Malaise Status: Acute (2) Low pulse oximetry Status: Acute History of Present Illness Date of Admission: 02/09/19 Chief Complaint: Malaise, low pulse oximetry The patient is a 58 year old F who was seen in the emergency room at [facility] after being sent in for evaluation by her PCP due to a low pulse ox in the PCPs office today. Patient had gone to the PCPs office with a complaint of malaise, patient has a history of MRDD and a complete review of systems was unobtainable from the patient, patient's mother was present during the time of my examination and I was able to obtain some medical information from her. I also talked with the patient's family physician who stated that the patient had complaints of fever at home with sweats and cough productive of yellow sputum over the last 48 hours. Workup in the emergency room revealed the patient to be hypoxic on room air, labs showed an elevated white blood cell count 14.1, d-dimer was elevated at 1.43, potassium was low at 2.4, creatinine was elevated at 1.86, BUN was 27. Patient's beta natruretic peptide was elevated at 130, Mandeep phosphatase was elevated at 133, and the patient's chest x-ray showed findings suggestive of atypical pulmonary edema worse on the left side. I talked with the emergency room physician, the emergency room physician and I talked with the patient and the patient's mother about obtaining a CTA of the chest, they understood that the patient's kidney function was not normal and that there could be a problem with kidney impairment following the study, patient's mother was in favor of performing the test as well as the patient. CTA of the chest was performed after patient was given fluid administration in the ER, the CTA of the chest showed diffuse infiltrates bilaterally. Patient was admitted to PCU for bilateral pneumonia and hypoxia secondary to bilateral community-acquired pneumonia, I placed her on Levaquin. She will receive IV fluids and potassium supplementation, labs will be rechecked tomorrow Past Medical History Past Medical History (Chronic Problems): Chronic Problems (Last Reviewed 09/17/18 @ 13:38 by Shannan Sepulveda) Palpitations (Chronic) Cardiac murmur (Chronic) Dyspnea (Chronic) Nonrheumatic mitral valve prolapse (Chronic) Long-term use of high-risk medication (Chronic) Hyperlipidemia (Chronic) Other secondary pulmonary hypertension (Chronic) Medical History: Medical History (Last Reviewed 09/17/18 @ 13:38 by Shannan Sepulveda) Palpitations (Chronic) R00.2 Cardiac murmur (Chronic) R01.1 Dyspnea (Chronic) R06.00 Chest pain, precordial (Acute) R07.2 Chest pain, unspecified (Acute) R07.9 Nonrheumatic mitral valve prolapse (Chronic) I34.1 Long-term use of high-risk medication (Chronic) Z79.899 Hyperlipidemia (Chronic) E78.5 Other secondary pulmonary hypertension (Chronic) I27.29 Anxiety F41.9 Depression F32.9 History of bacterial endocarditis Z86.79 History of stroke Z86.73 Pulmonary hypertension I27.20 Frequent falls R29.6 History of hysterectomy Z90.710 h/o stroke Allergies hydrocodone [From Vicodin] Allergy (Severe, Verified 02/09/19 20:05) Itching acetaminophen [From Percocet] Adverse Reaction (Unknown, Verified 02/09/19 15:14) Unknow meperidine [From Demerol] Adverse Reaction (Unknown, Verified 02/09/19 15:14) Unknown oxycodone [From Percocet] Adverse Reaction (Unknown, Verified 02/09/19 15:14) Unknow Penicillins Adverse Reaction (Unknown, Verified 02/09/19 15:14) Unknown sumatriptan [From Imitrex] Adverse Reaction (Unknown, Verified 02/09/19 15:14) Unknown Home Medications: Ambulatory Orders Medication Instructions Recorded ergocalciferol (vitamin D2) 50,000 50,000 unit PO QMONTH 10/28/17 unit capsule [id number] 2 cap PO TID 10/28/17 6,000-19,000-30,000 unit capsule,delayed rel omeprazole 40 mg capsule,delayed 40 mg PO QDAY 10/28/17 release propranolol ER 80 mg capsule,24 80 mg PO DAILY cap 10/28/17 hr,extended release albuterol sulfate HFA 90 1 puff INHALATION Q6H PRN 09/16/18 mcg/actuation aerosol inhaler aspirin 81 mg tablet,delayed 81 mg PO DAILY 09/16/18 release atorvastatin 10 mg tablet 10 mg PO DAILY 09/16/18 montelukast 10 mg tablet 10 mg PO QPM 09/16/18 buspirone 15 mg tablet 15 mg PO BID tab 09/17/18 desipramine 100 mg tablet 100 mg PO QHS 09/17/18 Sertraline HCl [Zoloft] 100 mg PO DAILY 02/09/19 Surgical History: Surgical History (Last Reviewed 09/17/18 @ 13:38 by Shannan Sepulveda) History of bilateral oophorectomy Z90.722 History of cholecystectomy Z90.49 History of nephrectomy, unilateral Onset Date: ~01/1997 Z90.5 left History of vagotomy Z98.890 Surgical History: - - Nephrectomy secondary to pyelonephritis Psychiatric History: - - 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 Lives: Alone Smoking Status: Former smoker Tobacco Use: Non-smoker Alcohol: None Drugs: None - *Family History Maternal Family History: Family History (Last Reviewed 09/17/18 @ 13:38 by Shannan Sepulveda) Father CAD (coronary artery disease) COPD (chronic obstructive pulmonary disease) Myocardial infarction, Onset Age: 60 History Items: Hypertension Paternal Family History: Family History (Last Reviewed 09/17/18 @ 13:38 by Shannan Sepulveda) Father CAD (coronary artery disease) COPD (chronic obstructive pulmonary disease) Myocardial infarction, Onset Age: 60 History Items: Asthma, COPD Review of Systems Comment: Complete review of systems was unobtainable from the patient due to cognitive impairment, information was obtained through the patient's family physician and the patient's mother VTE Information - Inpt Only VTE Present on Admission: No VTE Mechan Device Prophylaxis: None VTE Pharm Prophylaxis ordered?: Yes Patient Problems: Active and Suspected Problems (Last Reviewed 09/17/18 @ 13:38 by Shannan Sepulveda) Malaise (Acute) Low pulse oximetry (Acute) - Physical Exam General: Alert, Cooperative, No apparent distress, Well developed, Well n ourished HEENT: Atraumatic, PERRLA, EOMI, Normocephalic Oral: Moist Mucosa Neck: Supple, No JVD, Negative Carotid Bruits, Trachea Midline, Thyroid Normal Size and Texture Lungs: Normal air movement, Diminished, Rhonchi - Scattered expiratory rhonchi are noted over the lower lung daily Cardiovascular: Regular rate, Regular Rhythm, Normal S1, Normal S2, No murmurs, No Ectopic Activity Abdomen: Bowel Sounds Present, Soft, Non Tender, Non-Distended, No hernias noted Extremities: No clubbing, No cyanosis, No edema, Capillary Refill Less than 3 Seconds Skin: No rashes, No breakdown Musculoskeletal: No Tenderness to Palpation of Joints or Extremities Neurological: Cranial nerves II-XII grossly intact, Neuro grossly intact, Sensory exam intact to light touch and pain, Coordination normal Psych/Mental Status: Normal Affect, Appropriate, Alert and oriented to time, place, person, mood and affect Vital Signs Temp Pulse Resp BP Pulse Ox 97.8 F 77 32 H 120/66 95 02/09/19 20:10 02/09/19 20:10 02/09/19 20:10 02/09/19 20:19 02/09/19 20:10 Oxygen Flow Rate (L/min) 2 Oxygen Delivery Method Nasal Cannula Weight: 66.8 kg Body Mass Index (BMI) 23.1 Microbiology Past 72 Hours 02/09/19 16:15 Influenza Types A,B Direct FA ([facility]) - Final Mucosa - Nose Laboratory Tests Past 24 Hrs 02/09/19 02/09/19 02/09/19 15:20 15:20 15:20 WBC 14.1 H RBC 3.98 L Hgb 11.6 L Hct 35.5 L MCV 89.2 MCH 29.1 MCHC 32.7 RDW 15.2 H RDW Differential 49.4 H Plt Count 372 MPV 10.4 Immature Gran % (Auto) 0.800 Neut % (Auto) 65.1 Lymph % (Auto) 17.1 L [place] % (Auto) 7.4 Eos % (Auto) 9.1 H Baso % (Auto) 0.5 Absolute Neuts (auto) 9.2 H Absolute Lymphs (auto) 2.42 Total Counted Not Reportable D-Dimer Quant (PE/DVT) 1.43 H* Sodium 137 Potassium 2.4 L* Chloride 105 Carbon Dioxide 23.0 Anion Gap 9 BUN 27 H Creatinine 1.86 H Estim Creat Clear Calc 31.67 Est GFR (MDRD) Af Amer 36 L Est GFR (MDRD) Non-Af 29 L BUN/Creatinine Ratio 14.5 Glucose 100 Calcium 8.7 Total Bilirubin 0.40 Direct Bilirubin 0.16 AST 50 H ALT 26 Alkaline Phosphatase 133 H Troponin I < 0.015 B-Natriuretic Peptide Total Protein 7.9 Albumin 2.5 L Globulin 5.4 H Lipase 85 03/25/19 15:20 WBC RBC Hgb Hct MCV MCH MCHC RDW RDW Differential Plt Count MPV Immature Gran % (Auto) Neut % (Auto) Lymph % (Auto) [place] % (Auto) Eos % (Auto) Baso % (Auto) Absolute Neuts (auto) Absolute Lymphs (auto) Total Counted D-Dimer Quant (PE/DVT) Sodium Potassium Chloride Carbon Dioxide Anion Gap BUN Creatinine Estim Creat Clear Calc Est GFR (MDRD) Af Amer Est GFR (MDRD) Non-Af BUN/Creatinine Ratio Glucose Calcium Total Bilirubin Direct Bilirubin AST ALT Alkaline Phosphatase Troponin I B-Natriuretic Peptide 130.4 H Total Protein Albumin Globulin Lipase Assessment/Plan All Active Problems (Last Reviewed 09/17/18 @ 13:38 by Shannan Sepulveda) Malaise (Acute) Low pulse oximetry (Acute) Chest pain, precordial (Acute) Chest pain, unspecified (Acute) #1 bilateral community-acquired pneumonia-viral versus gram-positive bacterial, patient be admitted to PCU, she will receive aerosol treatments, she was placed on IV Levaquin, labs will be monitored, patient will have a respiratory panel performed #2 hypokalemia-exact etiology unclear at this point, patient was given potassium supplementation, BMP will be rechecked tomorrow #3 hypoxia secondary to #1, pulse ox will be monitored #4 cerebral vascular disease by history #5 MRDD #6 chronic kidney disease stage III #7 asthma by history #8 hyperlipidemia Code Visit Inpatient E&M: 54162 Init Hosp L3
[2019-02-09] MEDS: Potassium Chloride 40 MEQ in 0.9% Normal Saline 1,000 ML 125 MEQ IV (23:06)
[2019-02-10] VITALS (20 sets, daily range): BP systolic 107–123; BP diastolic 43–67; PULSE 81–96; RESP 20–32; TEMP 36.6–37.7; O2SAT 90–96
[2019-02-10] MEDS: Albuterol 2.5 MG/3 ML VIAL.NEB. INHALATION ×4 (00:49→20:47)
[2019-02-10] MEDS: Acetaminophen 325 MG Tablet 650 MG PO ×2 (05:02→23:57)
[2019-02-10 05:10] LABS: Absolute Lymphocyte Count 2.13 X10^3/ul (0.83-4.51); Basophil# 0.06 X10^3/uL; Basophil% 0.5 % (0-1); Eosinophil# 1.16 X10^3/uL; Hematocrit 33.2 % (37-47); Hemoglobin 10.3 g/dl (12.0-15.0); Lymphocyte # 2.13 X10^3/ul (4.0); Lymphocyte % 18.4 % (19-41); Mean Corpuscular Hgb 28.6 pg (27.0-32.0); Mean Corpuscular Volume 92.2 fL (81-99); Mean Platelet Vol. 10.4 fl (6.2-12.0); Monocyte# 1.06 X10^3/uL; Monocyte% 9.2 % (0-10); Neutrophil % 60.5 % (47-70); Platelet Count 345 K/mm3 (150-450); RBC Distribution Width CV 15.1 % (11.6-14.6); RBC Distribution Width SD 49.2 fl (35.1-43.9); White Blood Count 11.6 K/mm3 (4.4-11.0)
[2019-02-10 05:11] LABS: POSITIVE COUNT NO; POSITIVE DIFFERENTIAL NO; POSITIVE MORPHOLOGY NO
[2019-02-10 05:32] LABS: Anion Gap 10 (5-15); BUN 20 mg/dL (7-18); BUN/Creat Ratio 15.2 RATIO (10-20); Calcium,Total 8.5 mg/dL (8.5-10.1); Chloride 114 mmol/L (98-107); Creatinine, Serum 1.32 mg/dL (0.55-1.02); EST Glomerular Filtration Rate 44 mL/min (>60); Est Glom Filt Rate - Afr Amer 53 mL/min (>60); Estimated Creatinine Clearance 44.63 ml/min; Glucose 95 mg/dL (74-106); Potassium 2.9 mmol/L (3.5-5.1); Sodium Level 144 mmol/L (136-145)
[2019-02-10] MEDS: Potassium Chloride 40 MEQ in 0.9% Normal Saline 1,000 ML 125 MEQ IV ×2 (08:00→16:21)
[2019-02-10] MEDS: Aspirin E.C. 81 MG Tablet PO (09:33)
[2019-02-10] MEDS: Pantoprazole Sodium 40 MG Tablet PO (09:33)
[2019-02-10] MEDS: Sertraline 100 MG Tablet PO (09:33)
[2019-02-10] MEDS: busPIRone 15 MG TABLET PO ×2 (09:33→21:22)
[2019-02-10] MEDS: Propranolol LA 80 MG Capsule PO (09:33)
[2019-02-10] MEDS: Enoxaparin 40 MG/0.4 ML Syringe SC (09:34)
[2019-02-10 11:37] LABS: Magnesium 1.3 mg/dL (1.6-2.6); Phosphorus 2.3 mg/dL (2.5-4.9)
[2019-02-10 12:00] LABS: Bedside Glucose 110 mg/dL (70-110)
--- NOTE | 2019-02-10 13:50 | PCM.PROGNOTE ---
<Norm Hess - Last Filed: 02/10/19 13:53> Patient Problems: Active and Suspected Problems (Last Reviewed 09/17/18 @ 13:38 by Shannan Sepulveda) Malaise (Acute) Low pulse oximetry (Acute) Subjective: Productive cough. Some SOB. Remains on o2. Does not use O2 at home. No CP. Did require up to 4lpm at one point. Still appears SOB and she gets SOB with ambulation to bathroom. Denies swallowing issues or choking. Falling at home recently. - Physical Exam General: Alert, Oriented x3, Cooperative HEENT: Atraumatic, PERRLA, EOMI, Normocephalic Neck: Supple, No JVD, Negative Carotid Bruits Lungs: Rales Cardiovascular: Regular rate, No murmurs Abdomen: Bowel Sounds Present, Soft, Non Tender Extremities: No edema, Capillary Refill Less than 3 Seconds Skin: No rashes, No breakdown Musculoskeletal: No Tenderness to Palpation of Joints or Extremities Neurological: Cranial nerves II-XII grossly intact Psych/Mental Status: Normal Affect, Appropriate, Alert and oriented to time, place, person, mood and affect Vital Signs Temp Pulse Resp BP Pulse Ox 97.8 F 86 20 H 107/44 L 95 02/10/19 09:30 02/10/19 11:02 02/10/19 09:30 02/10/19 09:30 02/10/19 09:30 Oxygen Flow Rate (L/min) 3 Oxygen Delivery Method Nasal Cannula Weight: 147 lb 4.301 oz Body Mass Index (BMI) 23.1 Intake and Output for Last 24 Hours 02/08/19 02/09/19 02/10/19 23:59 23:59 23:59 Intake Total 533 / 533 1977 Output Total 300 / 300 600 / 600 Balance 233 / 233 1378 / 1378 Microbiology Past 72 Hours 02/09/19 16:15 Respiratory Panel (PCR) - Final Mucosa - Nasopharyngeal 02/09/19 16:15 Influenza Types A,B Direct FA ([facility]) - Final Mucosa - Nose Laboratory Tests Past 24 Hrs 02/09/19 02/09/19 02/09/19 15:20 15:20 15:20 WBC 14.1 H RBC 3.98 L Hgb 11.6 L Hct 35.5 L MCV 89.2 MCH 29.1 MCHC 32.7 RDW 15.2 H RDW Differential 49.4 H Plt Count 372 MPV 10.4 Immature Gran % (Auto) 0.800 Neut % (Auto) 65.1 Lymph % (Auto) 17.1 L [place] % (Auto) 7.4 Eos % (Auto) 9.1 H Baso % (Auto) 0.5 Absolute Neuts (auto) 9.2 H Absolute Lymphs (auto) 2.42 Total Counted Not Reportable D-Dimer Quant (PE/DVT) 1.43 H* Sodium 137 Potassium 2.4 L* Chloride 105 Carbon Dioxide 23.0 Anion Gap 9 BUN 27 H Creatinine 1.86 H Estim Creat Clear Calc 31.67 Est GFR (MDRD) Af Amer 36 L Est GFR (MDRD) Non-Af 29 L BUN/Creatinine Ratio 14.5 Glucose 100 Calcium 8.7 Phosphorus Magnesium Total Bilirubin 0.40 Direct Bilirubin 0.16 AST 50 H ALT 26 Alkaline Phosphatase 133 H Troponin I < 0.015 B-Natriuretic Peptide Total Protein 7.9 Albumin 2.5 L Globulin 5.4 H Lipase 85 02/09/19 02/10/19 02/10/19 15:20 04:38 04:38 WBC 11.6 H RBC 3.60 L Hgb 10.3 L Hct 33.2 L MCV 92.2 MCH 28.6 MCHC 31.0 L RDW 15.1 H RDW Differential 49.2 H Plt Count 345 MPV 10.4 Immature Gran % (Auto) 1.400 H Neut % (Auto) 60.5 Lymph % (Auto) 18.4 L [place] % (Auto) 9.2 Eos % (Auto) 10.0 H Baso % (Auto) 0.5 Absolute Neuts (auto) 7.0 Absolute Lymphs (auto) 2.13 Total Counted Not Reportable D-Dimer Quant (PE/DVT) Sodium 144 Potassium 2.9 L Chloride 114 H Carbon Dioxide 20.0 L Anion Gap 10 BUN 20 H Creatinine 1.32 H Estim Creat Clear Calc 44.63 Est GFR (MDRD) Af Amer 53 L Est GFR (MDRD) Non-Af 44 L BUN/Creatinine Ratio 15.2 Glucose 95 Calcium 8.5 Phosphorus Magnesium Total Bilirubin Direct Bilirubin AST ALT Alkaline Phosphatase Troponin I B-Natriuretic Peptide 130.4 H Total Protein Albumin Globulin Lipase 02/10/19 04:38 WBC RBC Hgb Hct MCV MCH MCHC RDW RDW Differential Plt Count MPV Immature Gran % (Auto) Neut % (Auto) Lymph % (Auto) [place] % (Auto) Eos % (Auto) Baso % (Auto) Absolute Neuts (auto) Absolute Lymphs (auto) Total Counted D-Dimer Quant (PE/DVT) Sodium Potassium Chloride Carbon Dioxide Anion Gap BUN Creatinine Estim Creat Clear Calc Est GFR (MDRD) Af Amer Est GFR (MDRD) Non-Af BUN/Creatinine Ratio Glucose Calcium Phosphorus 2.3 L Magnesium 1.3 L Total Bilirubin Direct Bilirubin AST ALT Alkaline Phosphatase Troponin I B-Natriuretic Peptide Total Protein Albumin Globulin Lipase POC Glucose 02/10/19 11:33 POC Glucose 110 Medical Necessity - Tobacco Use Smoking Status: Former smoker Tobacco Use: Non-smoker Assessment/Plan All Active Problems (Last Reviewed 09/17/18 @ 13:38 by Shannan Sepulveda) Malaise (Acute) Low pulse oximetry (Acute) Chest pain, precordial (Acute) Chest pain, unspecified (Acute) 1. Acute sepsis (present on admission) and acute hypoxic respiratory failure (present on admission) 2/2 BL CAP - continue rocephin/azithromycin. Check urine antigens and sputum. Resp panel negative. No home O2 normally. WBC improving, tachypnea resolved. Did require up to 4 lpm at admission. -D dimer elevated but CTA negative for PE. CTA did show chronic changes, BL groundglass opacities. -continue levaquin -IS and PEP therapy, mucinex. -bnp slightly elevated. -CO2 20.0 -increased alk phos and AST at admission, T bili nl. lip negative -CXR read as atypical pulmonary edema. 2. Asthma - no acute exacerbation - continue prn aerosols. Singulair. 3. Hypomagnesemia/Hypophosphatemia/Hypokalemia - replete all today and check in AM. 4. Chronic anemia - check iron/sat/tibc 5. 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 Improved with IV lasix. Continue to monitor as she received IV contrast. 6. Falls/Debility - admitted to falling at home, get PTOT evals. 7. Dep/Anxiety -continue Zoloft, desipramine, buspar. 8. Hyperlipidemia-Lipitor DVT prophylaxis: Lovenox Discharge planning-as above, falls, PT OT. This patient was seen by oNrm Hess PA-C under the supervision of Doctor Nik. <Salvador Zaragoza - Last Filed: 02/10/19 14:24> Subjective: Patient is admitted with shortness of breath and hypoxia. Patient also had progressive worsening of cough. Patient had mild sore throat and URI symptoms. Patient had elevated d-dimer and CT chest was done. CT chest shows bilateral diffuse groundglass patchy airspace disease reported as pulmonary edema. Patient BNP is 130 which is mildly elevated. Patient does not have history of coronary artery disease but has mild mitral valve prolapse. - Physical Exam General: Alert, Oriented x3, Cooperative HEENT: Atraumatic, PERRLA, EOMI, Normocephalic Oral: Dry Mucosa Neck: Supple, No JVD, Negative Carotid Bruits Lungs: Diminished - Air entry is diminished in both lungs, Rales Cardiovascular: Regular rate, Regular Rhythm, Normal S1, Normal S2, No murmurs Abdomen: Bowel Sounds Present, Soft, Non Tender Extremities: No edema, Capillary Refill Less than 3 Seconds Skin: No rashes, No breakdown Musculoskeletal: No Tenderness to Palpation of Joints or Extremities, Arthritic Changes, Muscle Wasting Lymphatic: No Cervical, Supraclavicular, or Inguinal Adenopathy Neurological: Cranial nerves II-XII grossly intact, Deep Tendon Reflexes 2+/4 and Symmetrical, Neuro grossly intact Psych/Mental Status: Normal Affect, Appropriate Vital Signs Temp Pulse Resp BP Pulse Ox 97.8 F 86 20 H 107/44 L 95 02/10/19 09:30 02/10/19 11:02 02/10/19 09:30 02/10/19 09:30 02/10/19 09:30 Oxygen Flow Rate (L/min) 3 Oxygen Delivery Method Nasal Cannula Weight: 147 lb 4.301 oz Body Mass Index (BMI) 23.1 Intake and Output for Last 24 Hours 02/08/19 02/09/19 02/10/19 23:59 23:59 23:59 Intake Total 533 / 533 1977 Output Total 300 / 300 600 / 600 Balance 233 / 233 1378 / 1378 Microbiology Past 72 Hours 02/09/19 16:15 Respiratory Panel (PCR) - Final Mucosa - Nasopharyngeal 02/09/19 16:15 Influenza Types A,B Direct FA ([facility]) - Final Mucosa - Nose Laboratory Tests Past 24 Hrs 02/09/19 02/09/19 02/09/19 15:20 15:20 15:20 WBC 14.1 H RBC 3.98 L Hgb 11.6 L Hct 35.5 L MCV 89.2 MCH 29.1 MCHC 32.7 RDW 15.2 H RDW Differential 49.4 H Plt Count 372 MPV 10.4 Immature Gran % (Auto) 0.800 Neut % (Auto) 65.1 Lymph % (Auto) 17.1 L [place] % (Auto) 7.4 Eos % (Auto) 9.1 H Baso % (Auto) 0.5 Absolute Neuts (auto) 9.2 H Absolute Lymphs (auto) 2.42 Total Counted Not Reportable D-Dimer Quant (PE/DVT) 1.43 H* Sodium 137 Potassium 2.4 L* Chloride 105 Carbon Dioxide 23.0 Anion Gap 9 BUN 27 H Creatinine 1.86 H Estim Creat Clear Calc 31.67 Est GFR (MDRD) Af Amer 36 L Est GFR (MDRD) Non-Af 29 L BUN/Creatinine Ratio 14.5 Glucose 100 Calcium 8.7 Phosphorus Magnesium Total Bilirubin 0.40 Direct Bilirubin 0.16 AST 50 H ALT 26 Alkaline Phosphatase 133 H Troponin I < 0.015 B-Natriuretic Peptide Total Protein 7.9 Albumin 2.5 L Globulin 5.4 H Lipase 85 02/09/19 02/10/19 02/10/19 15:20 04:38 04:38 WBC 11.6 H RBC 3.60 L Hgb 10.3 L Hct 33.2 L MCV 92.2 MCH 28.6 MCHC 31.0 L RDW 15.1 H RDW Differential 49.2 H Plt Count 345 MPV 10.4 Immature Gran % (Auto) 1.400 H Neut % (Auto) 60.5 Lymph % (Auto) 18.4 L [place] % (Auto) 9.2 Eos % (Auto) 10.0 H Baso % (Auto) 0.5 Absolute Neuts (auto) 7.0 Absolute Lymphs (auto) 2.13 Total Counted Not Reportable D-Dimer Quant (PE/DVT) Sodium 144 Potassium 2.9 L Chloride 114 H Carbon Dioxide 20.0 L Anion Gap 10 BUN 20 H Creatinine 1.32 H Estim Creat Clear Calc 44.63 Est GFR (MDRD) Af Amer 53 L Est GFR (MDRD) Non-Af 44 L BUN/Creatinine Ratio 15.2 Glucose 95 Calcium 8.5 Phosphorus Magnesium Total Bilirubin Direct Bilirubin AST ALT Alkaline Phosphatase Troponin I B-Natriuretic Peptide 130.4 H Total Protein Albumin Globulin Lipase 02/10/19 04:38 WBC RBC Hgb Hct MCV MCH MCHC RDW RDW Differential Plt Count MPV Immature Gran % (Auto) Neut % (Auto) Lymph % (Auto) [place] % (Auto) Eos % (Auto) Baso % (Auto) Absolute Neuts (auto) Absolute Lymphs (auto) Total Counted D-Dimer Quant (PE/DVT) Sodium Potassium Chloride Carbon Dioxide Anion Gap BUN Creatinine Estim Creat Clear Calc Est GFR (MDRD) Af Amer Est GFR (MDRD) Non-Af BUN/Creatinine Ratio Glucose Calcium Phosphorus 2.3 L Magnesium 1.3 L Total Bilirubin Direct Bilirubin AST ALT Alkaline Phosphatase Troponin I B-Natriuretic Peptide Total Protein Albumin Globulin Lipase POC Glucose 02/10/19 11:33 POC Glucose 110 Assessment/Plan This patient was seen in conjunction with Norm CANELA. I have independently interviewed and examined the patient and reviewed pertinent history, examination findings, laboratory and plan of management. I have reviewed the note and agree with the documented findings with the few additional points. In brief, patient is admitted for shortness of breath and hypoxia. Patient also had progressive worsening of cough. Patient had elevated d-dimer and CT chest was done. CT chest shows bilateral diffuse groundglass patchy airspace disease reported as pulmonary edema. Patient BNP is 130 which is mildly elevated. Patient does not have history of coronary artery disease but has mild mitral valve prolapse. Patient does not have pedal edema or generalized swelling. Patient had echo in September 2018 reported as EF 65% with evidence of diastolic dysfunction. Normal RV size and systolic function. Normal right and left atria. Trivial MR. Mild TR, RVSP 39 mmHg. Patient has history of asthma. Patient had previous CT chest done in January 2018 was reported as interstitial septal thickening of the lung with groundglass opacities in the lower chest. Patient also has hypokalemia which is being monitored in place. Patient has acute kidney injury, probably from sepsis/prerenal on CKD stage III secondary to solitary kidney. Kidney function is improving. I have discussed my assessment with Norm CANELA and orders have been reviewed. Patient is admitted Clinical Impression(s) from Imaging Studies Chest X-Ray 02/09/19 15:40 IMPRESSION: Findings suggestive of atypical pulmonary edema worse on the left side. Electronically Signed: Puneet Atiya, at 15:58 EDT , Service support , Chest CTA 02/09/19 16:51 IMPRESSION: Negative for pulmonary embolism or thoracic aortic dissection. Diffuse patchy groundglass airspace disease noted bilaterally suggesting pulmonary edema. Appearance of pulmonary artery hypertension. Microbiology Past 72 Hours 02/09/19 16:15 Mucosa - Nasopharyngeal Respiratory Panel (PCR) - Final 02/09/19 16:15 Mucosa - Nose Influenza Types A,B Direct FA ([facility]) - Final Code Visit Inpatient E&M: 07475 Subs Hosp L3
[2019-02-10 14:43] LABS: Iron 35 ug/dL (50-170); Iron Binding Capacity,Total 293 ug/dL (250-450); PERCENT IRON SATURATION 11.9 % (15.0-55.0)
[2019-02-10] MEDS: Magnesium Sulfate 4gm/100mL 4 GM/100 ML IV.SOLN. IV (15:44)
[2019-02-10] MEDS: Na Biphos/Potassium Phosphate PACKET 1 PACKET PO ×3 (15:45→21:22)
[2019-02-10] MEDS: Montelukast 10 MG Tablet PO (20:17)
[2019-02-10] MEDS: guaiFENesin 1,200 MG Tablet 1200 MG PO (21:22)
[2019-02-10] MEDS: Atorvastatin Calcium 10 MG Tablet PO (21:22)
[2019-02-11] VITALS (17 sets, daily range): BP systolic 101–144; BP diastolic 39–70; PULSE 81–107; RESP 20–28; TEMP 36.6–38; O2SAT 89–94
[2019-02-11] MEDS: Potassium Chloride 40 MEQ in 0.9% Normal Saline 1,000 ML 125 MEQ IV (00:41)
[2019-02-11 06:23] LABS: Absolute Neutrophil Count 8.9 X10^3/uL (2.0-7.7); Basophil# 0.06 X10^3/uL; Basophil% 0.5 % (0-1); Eosinophil# 0.91 X10^3/uL; Hematocrit 33.5 % (37-47); Hemoglobin 10.1 g/dl (12.0-15.0); Lymphocyte % 15.3 % (19-41); Mean Corp Hgb Conc 30.1 g/gl (32-36); Mean Corpuscular Hgb 28.5 pg (27.0-32.0); Mean Corpuscular Volume 94.4 fL (81-99); Mean Platelet Vol. 10.3 fl (6.2-12.0); Monocyte# 1.01 X10^3/uL; Monocyte% 7.7 % (0-10); Neutrophil % 68.2 % (47-70); Platelet Count 373 K/mm3 (150-450); RBC Distribution Width CV 15.6 % (11.6-14.6); Red Blood Count 3.55 M/mm3 (4.2-5.4); White Blood Count 13.1 K/mm3 (4.4-11.0)
[2019-02-11 06:30] LABS: POSITIVE COUNT NO; POSITIVE DIFFERENTIAL NO; POSITIVE MORPHOLOGY NO
[2019-02-11] MEDS: Albuterol 2.5 MG/3 ML VIAL.NEB. INHALATION (06:43)
[2019-02-11 06:45] LABS: Anion Gap 8 (5-15); BUN 11 mg/dL (7-18); BUN/Creat Ratio 9.4 RATIO (10-20); Calcium,Total 8.9 mg/dL (8.5-10.1); Chloride 120 mmol/L (98-107); Creatinine, Serum 1.17 mg/dL (0.55-1.02); EST Glomerular Filtration Rate 50 mL/min (>60); Est Glom Filt Rate - Afr Amer 61 mL/min (>60); Estimated Creatinine Clearance 50.35 ml/min; Glucose 97 mg/dL (74-106); Magnesium 2.1 mg/dL (1.6-2.6); Potassium 4.2 mmol/L (3.5-5.1); Sodium Level 146 mmol/L (136-145)
--- NOTE | 2019-02-11 09:57 | RAD_ITS ---
HISTORY: INCREASED SOB, FEVER, HYPOXIA EXAM/TECHNIQUE: XR Chest 2 Views: COMPARISON: 02/09/19 CXR. FINDINGS: # of images incl. paperwork: 3 Interval worsening of multifocal left greater than right bilateral pulmonary opacities, mostly groundglass attenuation, with some sparing of the lower lobes bilaterally. No apparent pneumothorax or large pleural effusion. Mild cardiomegaly unchanged. Acute osseous abnormality. Upper abdominal surgical clips and sutures. RAD/Chest PA and Lateral IMPRESSION: Interval worsening of left greater than right multifocal airspace disease, most likely pneumonia given the history of fever. Edema, noninfectious inflammatory pneumonitis could also appear this way. at 1019 Reported and signed by: Farhat Ryan MD Electronically Signed: Farhat Ryan, at 10:18 EDT Tel , Service support ,
[2019-02-11] MEDS: Furosemide 40 MG/4 ML Vial IV ×2 (10:44→17:35)
[2019-02-11] MEDS: Enoxaparin 40 MG/0.4 ML Syringe SC (10:44)
[2019-02-11] MEDS: 0.9% NaCl Peripheral Flush Adult/Peds IV ×2 (10:44→17:35)
[2019-02-11] MEDS: Sertraline 100 MG Tablet PO (11:42)
[2019-02-11] MEDS: busPIRone 15 MG TABLET PO ×2 (11:42→22:14)
[2019-02-11] MEDS: Acetaminophen 325 MG Tablet 650 MG PO ×2 (11:42→20:18)
[2019-02-11] MEDS: Iron Polysaccharide Complex 150 MG CAPSULE PO (11:42)
[2019-02-11] MEDS: guaiFENesin 1,200 MG Tablet 1200 MG PO ×2 (11:42→22:14)
[2019-02-11] MEDS: Propranolol LA 80 MG Capsule PO (11:43)
[2019-02-11] MEDS: Pantoprazole Sodium 40 MG Tablet PO (11:43)
[2019-02-11] MEDS: Aspirin E.C. 81 MG Tablet PO (11:43)
--- NOTE | 2019-02-11 11:44 | NURSING ---
AM meds given late at this time due to NPO for speech eval
--- NOTE | 2019-02-11 15:06 | PN_ITS ---
<Norm Hess - Last Filed: 02/11/19 14:57> Patient Problems: Active and Suspected Problems (Last Reviewed 09/17/18 @ 13:38 by Shannan Sepulveda) Malaise (Acute) Low pulse oximetry (Acute) Subjective: Ongoing SOB, worsening. Non productive cough continues. Seen choking with food. Speech eval completed and she has significant dysphagia. Abx broadened for aspiration. Fever again this AM, WBC up. - Physical Exam General: Alert, Oriented x3, Cooperative HEENT: Atraumatic, PERRLA, EOMI, Normocephalic Neck: Supple, No JVD, Negative Carotid Bruits Lungs: Diminished, Rales Cardiovascular: Regular rate, No murmurs Abdomen: Bowel Sounds Present, Soft, Non Tender Extremities: No edema, Capillary Refill Less than 3 Seconds Skin: No rashes, No breakdown Musculoskeletal: No Tenderness to Palpation of Joints or Extremities Neurological: Cranial nerves II-XII grossly intact Psych/Mental Status: Normal Affect, Appropriate, Alert and oriented to time, place, person, mood and affect Vital Signs Temp Pulse Resp BP Pulse Ox 100.4 F H 107 H 20 H 114/51 L 94 02/11/19 09:15 02/11/19 10:59 02/11/19 09:15 02/11/19 09:15 02/11/19 14:12 Oxygen Flow Rate (L/min) 12 Oxygen Delivery Method Venturi Mask Weight: 147 lb 4.301 oz Body Mass Index (BMI) 23.1 Intake and Output for Last 24 Hours 02/09/19 02/10/19 02/11/19 23:59 23:59 23:59 Intake Total 533 / 533 4376.4 / 4376.4 1500 / 1500 Output Total 300 / 300 1400 / 1400 1350 / 1350 Balance 233 / 233 2976.4 / 2976.4 150 / 150 Microbiology Past 72 Hours 02/10/19 14:15 Streptococcus pneumoniae Antigen (M - Final Urine, Clean Catch 02/10/19 14:10 Legionella Antigen - Final Urine, Clean Catch 02/09/19 16:15 Respiratory Panel (PCR) - Final Mucosa - Nasopharyngeal 02/09/19 16:15 Influenza Types A,B Direct FA ([facility]) - Final Mucosa - Nose Laboratory Tests Past 24 Hrs 02/11/19 02/11/19 05:40 05:40 WBC 13.1 H RBC 3.55 L Hgb 10.1 L Hct 33.5 L MCV 94.4 MCH 28.5 MCHC 30.1 L RDW 15.6 H RDW Differential 52.0 H Plt Count 373 MPV 10.3 Immature Gran % (Auto) 1.300 H Neut % (Auto) 68.2 Lymph % (Auto) 15.3 L [place] % (Auto) 7.7 Eos % (Auto) 7.0 H Baso % (Auto) 0.5 Absolute Neuts (auto) 8.9 H Absolute Lymphs (auto) 2.00 Total Counted Not Reportable Sodium 146 H Potassium 4.2 Chloride 120 H Carbon Dioxide 18.0 L Anion Gap 8 BUN 11 Creatinine 1.17 H Estim Creat Clear Calc 50.35 Est GFR (MDRD) Af Amer 61 Est GFR (MDRD) Non-Af 50 L BUN/Creatinine Ratio 9.4 L Glucose 97 Calcium 8.9 Magnesium 2.1 Medical Necessity - Tobacco Use Smoking Status: Former smoker Tobacco Use: Non-smoker Assessment/Plan All Active Problems (Last Reviewed 09/17/18 @ 13:38 by Shannan Sepulveda) Malaise (Acute) Low pulse oximetry (Acute) Chest pain, precordial (Acute) Chest pain, unspecified (Acute) 1. Acute sepsis (present on admission) and acute hypoxic respiratory failure (present on admission) 2/2 BL Pna with aspiration - There is also a component of Acute diastolic CHF. No home O2 normally. Required up to venti mask today. She has seen Dr. Herbert in the past - consult. -worsening leukocytosis and O2 requirement -IV lasix started. -continue rocephin/azithromycin. -D dimer elevated but CTA negative for PE. CTA did show chronic changes, BL groundglass opacities. -continue levaquin, flagyl added for aspiration -IS and PEP therapy, mucinex. -bnp elevated. -CO2 down to 18 -increased alk phos and AST at admission, T bili nl. lip negative -Initial CXR read as atypical pulmonary edema, Repeat CXR is shows progressive infiltrates -Negative resp panel, negative urine antigens -Echo 10/05 with 65% EF, and PASP 39 mmHg 2. Asthma - no acute exacerbation - continue prn aerosols. Singulair. 3. Hypomagnesemia/Hypophosphatemia/Hypokalemia - repleted. normalized mag/K+ 4. Iron deficiency anemia anemia - iron poor, replace with venofer + start po iron 5. 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 Improved with IV lasix. Continue to monitor as she received IV contrast. 6. Falls/Debility - admitted to falling at home, get PTOT evals. 7. Dep/Anxiety -continue Zoloft, desipramine, buspar. 8. Hyperlipidemia-Lipitor 9. Dysphagia - continue Speech therapy DVT prophylaxis: Lovenox Discharge planning- likely needs SNF. This patient was seen by Norm Hess PA-C under the supervision of Doctor Nik. <Salvador Zaragoza - Last Filed: 02/11/19 17:01> Subjective: Patient is very short of breath. Patient does not feel improvement nor deterioration in breathing. Still has cough. Patient was seen by Dr. Herbert about 3 years ago. Patient caregiver is her mother I think who has dementia her self. As per the mother, she had childhood asthma at the age of 6-7 years. She did not see Dr. Herbert for last 3 years because she did not had any respiratory issues. Patient had tachypnea, respiratory rate 24-28/min and mild low-grade fever T-max 100.4 Fahrenheit. Patient on Ventimask. Dr. Herbert has been consulted. - Physical Exam General: Alert, Oriented x3, Cooperative HEENT: Atraumatic, PERRLA, EOMI, Normocephalic Neck: Supple, No JVD, Negative Carotid Bruits Lungs: Diminished, Rales, Rhonchi, Short of Breath Cardiovascular: Regular rate, Regular Rhythm, Normal S1, Normal S2, No murmurs, Tachycardic Abdomen: Bowel Sounds Present, Soft, Non Tender, Non-Distended Extremities: No edema, Capillary Refill Less than 3 Seconds Skin: No rashes, No breakdown Musculoskeletal: No Tenderness to Palpation of Joints or Extremities Neurological: Cranial nerves II-XII grossly intact Psych/Mental Status: Normal Affect, Appropriate Vital Signs Temp Pulse Resp BP Pulse Ox 98.2 F 81 20 H 101/40 L 94 02/11/19 14:50 02/11/19 15:02 02/11/19 14:50 02/11/19 14:50 02/11/19 14:50 Oxygen Flow Rate (L/min) 12 Oxygen Delivery Method Venturi Mask Weight: 147 lb 4.301 oz Body Mass Index (BMI) 23.1 Intake and Output for Last 24 Hours 02/09/19 02/10/19 02/11/19 23:59 23:59 23:59 Intake Total 533 / 533 4376.4 / 4376.4 1500 / 1500 Output Total 300 / 300 1400 / 1400 1350 / 1350 Balance 233 / 233 2976.4 / 2976.4 150 / 150 Microbiology Past 72 Hours 02/10/19 14:15 Streptococcus pneumoniae Antigen (M - Final Urine, Clean Catch 02/10/19 14:10 Legionella Antigen - Final Urine, Clean Catch 02/09/19 16:15 Respiratory Panel (PCR) - Final Mucosa - Nasopharyngeal 02/09/19 16:15 Influenza Types A,B Direct FA ([facility]) - Final Mucosa - Nose Laboratory Tests Past 24 Hrs 02/11/19 02/11/19 05:40 05:40 WBC 13.1 H RBC 3.55 L Hgb 10.1 L Hct 33.5 L MCV 94.4 MCH 28.5 MCHC 30.1 L RDW 15.6 H RDW Differential 52.0 H Plt Count 373 MPV 10.3 Immature Gran % (Auto) 1.300 H Neut % (Auto) 68.2 Lymph % (Auto) 15.3 L [place] % (Auto) 7.7 Eos % (Auto) 7.0 H Baso % (Auto) 0.5 Absolute Neuts (auto) 8.9 H Absolute Lymphs (auto) 2.00 Total Counted Not Reportable Sodium 146 H Potassium 4.2 Chloride 120 H Carbon Dioxide 18.0 L Anion Gap 8 BUN 11 Creatinine 1.17 H Estim Creat Clear Calc 50.35 Est GFR (MDRD) Af Amer 61 Est GFR (MDRD) Non-Af 50 L BUN/Creatinine Ratio 9.4 L Glucose 97 Calcium 8.9 Magnesium 2.1 Assessment/Plan This patient was seen in conjunction with Norm CANELA. I have independently interviewed and examined the patient and reviewed pertinent history, examination findings, laboratory and plan of management. I have reviewed the note and agree with the documented findings with the few additional points. In brief, patient is admitted for shortness of breath and hypoxia. Patient also had progressive worsening of cough. Patient had elevated d-dimer and CT chest was done. CT chest shows bilateral diffuse groundglass patchy airspace disease reported as pulmonary edema. Patient BNP is 130 which is mildly elevated. Patient does not have history of coronary artery disease but has mild mitral valve prolapse. Patient does not have pedal edema or generalized swelling. Patient had echo in September 2018 reported as EF 65% with evidence of diastolic dysfunction. Normal RV size and systolic function. Normal right and left atria. Trivial MR. Mild TR, RVSP 39 mmHg. Discussed with the mother and patient was admitted in active hospital in 2014 for 3 months. There, she had E. coli bacteremia which was complicated with a stroke and had kidney failure for which she required nephrectomy. Patient has oropharyngeal dysphagia secondary to stroke since then and feels sometimes choking on swallowing big chunk of food. Patient has history of asthma. Patient had previous CT chest done in January 2018 was reported as interstitial septal thickening of the lung with groundglass opacities in the lower chest. I think patient has associated interstitial lung disease or interstitial pneumonitis. Dr. Herbert is being consulted for further opinion. Obtain medical record from Dr. Herbert office. On IV Levaquin plus Flagyl. Speech/swallow evaluation. Patient also has hypokalemia which is being monitored and replaced. Repeat K is corrected. Patient has acute kidney injury, probably from sepsis/prerenal on CKD stage III secondary to solitary kidney. Kidney function is improving. I have discussed my assessment with Norm CANELA and orders have been reviewed. Clinical Impression(s) from Imaging Studies Chest X-Ray 02/09/19 15:40 IMPRESSION: Findings suggestive of atypical pulmonary edema worse on the left side. Chest CTA 02/09/19 16:51 IMPRESSION: Negative for pulmonary embolism or thoracic aortic dissection. Diffuse patchy groundglass airspace disease noted bilaterally suggesting pulmonary edema. Appearance of pulmonary artery hypertension. Microbiology Past 72 Hours 02/09/19 16:15 Mucosa - Nasopharyngeal Respiratory Panel (PCR) - Final 02/09/19 16:15 Mucosa - Nose Influenza Types A,B Direct FA ([facility]) - Final Code Visit Inpatient E&M: 69204 Subs Hosp L3
[2019-02-11] MEDS: Ipratropium/Albuterol Sulfate 3 ML AMPUL.NEB INHALATION (19:38)
[2019-02-11] MEDS: levoFLOXacin IV 750 MG/150 ML BAG 100 MG IV (20:02)
[2019-02-11] MEDS: Montelukast 10 MG Tablet PO (20:03)
[2019-02-11] MEDS: Atorvastatin Calcium 10 MG Tablet PO (22:14)
[2019-02-12] VITALS (24 sets, daily range): BP systolic 88–119; BP diastolic 46–63; PULSE 77–98; RESP 16–80; TEMP 36.2–37.1; O2SAT 88–98
[2019-02-12 06:36] LABS: Anion Gap 9 (5-15); BUN 13 mg/dL (7-18); BUN/Creat Ratio 10.2 RATIO (10-20); Chloride 108 mmol/L (98-107); Creatinine, Serum 1.27 mg/dL (0.55-1.02); EST Glomerular Filtration Rate 46 mL/min (>60); Est Glom Filt Rate - Afr Amer 55 mL/min (>60); Estimated Creatinine Clearance 46.38 ml/min; Glucose 117 mg/dL (74-106); Potassium 3.2 mmol/L (3.5-5.1); Sodium Level 141 mmol/L (136-145)
[2019-02-12 06:48] LABS: Absolute Lymphocyte Count 2.28 X10^3/ul (0.83-4.51); Absolute Neutrophil Count 13.1 X10^3/uL (2.0-7.7); Basophil# 0.06 X10^3/uL; Basophil% 0.3 % (0-1); Eosinophil# 1.38 X10^3/uL; Eosinophils% 7.5 % (0-5); Hematocrit 34.6 % (37-47); Lymphocyte # 2.28 X10^3/ul (4.0); Lymphocyte % 12.3 % (19-41); Mean Corp Hgb Conc 31.8 g/gl (32-36); Mean Corpuscular Hgb 29.2 pg (27.0-32.0); Mean Corpuscular Volume 91.8 fL (81-99); Mean Platelet Vol. 10.2 fl (6.2-12.0); Monocyte# 1.29 X10^3/uL; Neutrophil # 13.13 X10^3/uL (2.7-7.7); Neutrophil % 70.9 % (47-70); Platelet Count 408 K/mm3 (150-450); RBC Distribution Width CV 15.6 % (11.6-14.6); RBC Distribution Width SD 52.7 fl (35.1-43.9); Red Blood Count 3.77 M/mm3 (4.2-5.4); White Blood Count 18.5 K/mm3 (4.4-11.0)
[2019-02-12 06:54] LABS: POSITIVE COUNT YES; POSITIVE DIFFERENTIAL NO; POSITIVE MORPHOLOGY YES
[2019-02-12] MEDS: Ipratropium/Albuterol Sulfate 3 ML AMPUL.NEB INHALATION ×3 (07:14→18:57)
[2019-02-12] MEDS: busPIRone 15 MG TABLET PO ×2 (09:36→21:21)
[2019-02-12] MEDS: Iron Polysaccharide Complex 150 MG CAPSULE PO (09:36)
[2019-02-12] MEDS: Aspirin E.C. 81 MG Tablet PO (09:36)
[2019-02-12] MEDS: Furosemide 40 MG/4 ML Vial IV ×2 (09:37→18:17)
[2019-02-12] MEDS: Propranolol LA 80 MG Capsule PO (09:37)
[2019-02-12] MEDS: guaiFENesin 1,200 MG Tablet 1200 MG PO ×2 (09:38→21:21)
[2019-02-12] MEDS: Sertraline 100 MG Tablet PO (09:38)
[2019-02-12] MEDS: Pantoprazole Sodium 40 MG Tablet PO (09:38)
[2019-02-12] MEDS: Enoxaparin 40 MG/0.4 ML Syringe SC (09:38)
--- NOTE | 2019-02-12 11:46 | PCM.PROGNOTE ---
<Christina Ferreira - Last Filed: 02/12/19 12:29> Patient Problems: Active and Suspected Problems (Last Reviewed 09/17/18 @ 13:38 by Shannan Sepulveda) Malaise (Acute) Low pulse oximetry (Acute) Subjective: Patient seen and examined. Reports increased shortness of breath this morning requiring increased supplemental oxygen which has since resolved. She reports sleeping at an incline to help with her breathing. She complains of speech therapy recommended dietary restrictions and request regular water. - Physical Exam General: Alert, Oriented x3, Cooperative HEENT: Atraumatic, PERRLA, EOMI, Normocephalic Oral: Dry Mucosa Neck: Supple, No JVD, Negative Carotid Bruits Lungs: Diminished, Rales, Wheezes Cardiovascular: Regular rate, No murmurs Abdomen: Bowel Sounds Present, Soft, Non Tender, Non-Distended Extremities: No clubbing, No cyanosis, No edema, Capillary Refill Less than 3 Seconds Skin: No rashes, No breakdown Musculoskeletal: No Tenderness to Palpation of Joints or Extremities Neurological: Cranial nerves II-XII grossly intact, Neuro grossly intact Psych/Mental Status: Normal Affect, Appropriate Vital Signs Temp Pulse Resp BP Pulse Ox 98.4 F 94 20 H 102/59 L 94 02/12/19 10:45 02/12/19 10:45 02/12/19 10:45 02/12/19 10:45 02/12/19 10:45 Oxygen Flow Rate (L/min) 9 Oxygen Delivery Method Nasal Cannula Weight: 147 lb 4.301 oz Body Mass Index (BMI) 23.1 Intake and Output for Last 24 Hours 02/10/19 02/11/19 02/12/19 23:59 23:59 23:59 Intake Total 4376.4 / 4376.4 2185 / 2185 640 / 640 Output Total 1400 / 1400 2350 / 2350 700 / 700 Balance 2976.4 / 2976.4 -165 / -165 -60 / -60 Microbiology Past 72 Hours 02/10/19 14:15 Streptococcus pneumoniae Antigen (M - Final Urine, Clean Catch 02/10/19 14:10 Legionella Antigen - Final Urine, Clean Catch 02/09/19 16:15 Respiratory Panel (PCR) - Final Mucosa - Nasopharyngeal 02/09/19 16:15 Influenza Types A,B Direct FA ([facility]) - Final Mucosa - Nose Laboratory Tests Past 24 Hrs 02/12/19 02/12/19 05:45 05:45 WBC 18.5 H RBC 3.77 L Hgb 11.0 L Hct 34.6 L MCV 91.8 MCH 29.2 MCHC 31.8 L RDW 15.6 H RDW Differential 52.7 H Plt Count 408 MPV 10.2 Immature Gran % (Auto) 2.000 H Neut % (Auto) 70.9 H Lymph % (Auto) 12.3 L [place] % (Auto) 7.0 Eos % (Auto) 7.5 H Baso % (Auto) 0.3 Absolute Neuts (auto) 13.1 H Absolute Lymphs (auto) 2.28 Total Counted Not Reportable Diff Path Review March Sodium 141 Potassium 3.2 L Chloride 108 H Carbon Dioxide 24.0 Anion Gap 9 BUN 13 Creatinine 1.27 H Estim Creat Clear Calc 46.38 Est GFR (MDRD) Af Amer 55 L Est GFR (MDRD) Non-Af 46 L BUN/Creatinine Ratio 10.2 Glucose 117 H Calcium 9.0 Medical Necessity - Tobacco Use Smoking Status: Former smoker Tobacco Use: Non-smoker Assessment/Plan All Active Problems (Last Reviewed 09/17/18 @ 13:38 by Shannan Sepulveda) Malaise (Acute) Low pulse oximetry (Acute) Chest pain, precordial (Acute) Chest pain, unspecified (Acute) 1. Acute hypoxic respiratory failure multifactorial secondary to to bilateral community-acquired pneumonia, possible aspiration pneumonia, suspected asthma exacerbation versus noninfectious inflammatory pneumonitis, and mild acute diastolic CHF-continue supplement oxygen to maintain O2 at or above 90%. Wean oxygen as tolerated. Walking pulse ox prior to discharge. Dr. Herbert consult pending. 2. Bilateral community acquired pneumonia, possible aspiration pneumonia, dysphagia-ST consulted. Continue dietary modifications per speech therapy recommendations. Continue IV Levaquin and IV Flagyl. Urine for strep and Legionella negative. Respiratory panel negative. Send sputum for culture. Repeat chest x-ray this morning shows interval worsening of the left greater than right multifocal airspace disease. Edema, noninfectious inflammatory pneumonitis possible? CT of chest obtained due to elevated d-dimer which was negative for PE. Diffuse patchy groundglass airspace disease noted bilaterally suggesting pulmonary edema. 3. Suspected asthma exacerbation versus noninfectious inflammatory pneumonitis-wheezing on assessment. Begin IV Solu-Medrol. Pulmonary consulted. Albuterol and DuoNeb aerosols. 4. Acute diastolic CHF-BNP mildly elevated. Chest x-ray admission with atypical pulmonary edema. Continue IV Lasix. Repeat echocardiogram. Echocardiogram September 2018 with EF 65%. 5. Hypokalemia/hypomagnesia-replace per protocol. Trend BMP. 6. History of CVA- continue aspirin, statin. PT/OT/ST. 7. Hypertension- stable, continue current regimen including propanolol. 8. Hyperlipidemia- continue statin. 9. Iron deficiency anemia-stable, trend cbc. 10. Chronic kidney disease stage III secondary to solitary kidney-stable, trend BMP. 11. Depression/anxiety-continue home regimen including buspirone, desipramine, sertraline. 12. MRDD 13. Falls/Debility- PT/OT. PT recommended additional therapy. DVT prophylaxis-Lovenox subcu This patient was seen by ERIKA Marsh under the supervision of Dr. Zaragoza. <Salvador Zaragoza - Last Filed: 02/12/19 17:26> Subjective: Seen and examined. Patient is still very short of breath on 9 L of high flow oxygen. ABG was ordered. She is very tachypneic. ABG reported pH 7.4, PCO2 33/PO2 79 on 9 L of high flow oxygen. Cast with the whipper Dr. Herbert. - Physical Exam General: Alert, Oriented x3, Cooperative HEENT: Atraumatic, PERRLA, EOMI, Normocephalic Neck: Supple, No JVD, Negative Carotid Bruits Lungs: Diminished, Rales, Short of Breath, Tachypneic, Wheezes Cardiovascular: Regular rate, Regular Rhythm, Normal S1, Normal S2, No murmurs Abdomen: Bowel Sounds Present, Soft, Non Tender, Non-Distended Extremities: No edema, Capillary Refill Less than 3 Seconds Skin: No rashes, No breakdown Musculoskeletal: No Tenderness to Palpation of Joints or Extremities, Arthritic Changes Neurological: Cranial nerves II-XII grossly intact Psych/Mental Status: Normal Affect, Appropriate Vital Signs Temp Pulse Resp BP Pulse Ox 97.2 F L 98 20 H 98/50 L 96 02/12/19 16:47 02/12/19 16:47 02/12/19 16:47 02/12/19 16:47 02/12/19 16:47 Oxygen Flow Rate (L/min) 9 Oxygen Delivery Method Nasal Cannula Weight: 147 lb 4.301 oz Body Mass Index (BMI) 23.1 Intake and Output for Last 24 Hours 02/10/19 02/11/19 02/12/19 23:59 23:59 23:59 Intake Total 4376.4 / 4376.4 2185 / 2185 1040 / 1040 Output Total 1400 / 1400 2350 / 2350 1100 / 1100 Balance 2976.4 / 2976.4 -165 / -165 -60 / -60 Microbiology Past 72 Hours 02/10/19 14:15 Streptococcus pneumoniae Antigen (M - Final Urine, Clean Catch 02/10/19 14:10 Legionella Antigen - Final Urine, Clean Catch 02/09/19 16:15 Respiratory Panel (PCR) - Final Mucosa - Nasopharyngeal 02/09/19 16:15 Influenza Types A,B Direct FA ([facility]) - Final Mucosa - Nose Laboratory Tests Past 24 Hrs 02/12/19 02/12/19 02/12/19 05:45 05:45 14:19 WBC 18.5 H RBC 3.77 L Hgb 11.0 L Hct 34.6 L MCV 91.8 MCH 29.2 MCHC 31.8 L RDW 15.6 H RDW Differential 52.7 H Plt Count 408 MPV 10.2 Immature Gran % (Auto) 2.000 H Neut % (Auto) 70.9 H Lymph % (Auto) 12.3 L Mason % (Auto) 7.0 Eos % (Auto) 7.5 H Baso % (Auto) 0.3 Absolute Neuts (auto) 13.1 H Absolute Lymphs (auto) 2.28 Total Counted Not Reportable Diff Path Review Reviewed Specimen Type ART Sample Site L Radial pH 7.40 Bicarbonate Actual 20.7 L POC Total CO2 22 Base Excess -4 L O2 Saturation 96 ABG pCO2 33.2 L ABG pO2 79 Arsh Test POS O2 Delivery Device Nasal Can Liter Flow 9.0 Blood Gas Notified Whom HOSP Blood Gas Notified Time 1415 Sodium 141 Potassium 3.2 L Chloride 108 H Carbon Dioxide 24.0 Anion Gap 9 BUN 13 Creatinine 1.27 H Estim Creat Clear Calc 46.38 Est GFR (MDRD) Af Amer 55 L Est GFR (MDRD) Non-Af 46 L BUN/Creatinine Ratio 10.2 Glucose 117 H Calcium 9.0 Assessment/Plan This patient was seen in conjunction with GAS MAKER HELPERChristina. I have independently interviewed and examined the patient and reviewed pertinent history, examination findings, laboratory and plan of management. I have reviewed the note and agree with the documented findings with the few additional points. In brief, patient is admitted for shortness of breath and hypoxia. Patient also had progressive worsening of cough. Patient had elevated d-dimer and CT chest was done. CT chest shows bilateral diffuse groundglass patchy airspace disease reported as pulmonary edema. Clinically patient does not seem to have pulmonary edema. Patient BNP is 130 which is mildly elevated. Patient does not have history of coronary artery disease but has mild mitral valve prolapse. Patient does not have pedal edema or generalized swelling. Patient had echo in September 2018 reported as EF 65% with evidence of diastolic dysfunction. Normal RV size and systolic function. Normal right and left atria. Trivial MR. Mild TR, RVSP 39 mmHg. Discussed with the mother and patient was admitted in active hospital in 2014 for 3 months. There, she had E. coli bacteremia which was complicated with a stroke and had kidney failure for which she required nephrectomy. Patient has oropharyngeal dysphagia secondary to stroke since then and feels sometimes choking on swallowing big chunk of food. Patient is on modified dysphagia diet. BiPAP is contracted in view of possible worsening of aspiration/pneumonia. Patient has history of asthma. Patient had previous CT chest done in January 2018 was reported as interstitial septal thickening of the lung with groundglass opacities in the lower chest. I think patient has associated interstitial lung disease or hypersensitivity pneumonitis. Medical record in fact received from PCP but not from Dr. Herbert. On IV Levaquin plus Flagyl. Speech/swallow evaluation and management to continue. Discussed with Dr. Herbert and he agreed to see the patient in the evening. Patient is started on Solu-Medrol 60 mg IV every 8 hourly. ABG reported pH 7.4, PCO2 33/PO2 79 on 9 L of high flow oxygen. ABG suggestive of severe hypoxia with high hiatal gradient and respiratory alkalosis. Patient has hypokalemia and is being replaced. Patient has acute kidney injury, probably from sepsis/prerenal on CKD stage III secondary to solitary kidney. I have discussed my assessment with GAS MAKER HELPERChristina and orders have been reviewed. Active Medications Acetaminophen (Tylenol) 650 mg PO Q6H PRN PRN PRN Reason: Mild Pain (1-3)/Temp > 100.7 F Last Admin: 02/11/19 20:18 Dose: 650 mg Albuterol Sulfate (Ventolin Aerosols) 2.5 mg INHALATION Q2H PRN PRN PRN Reason: Shortness of breath Albuterol/Ipratropium (Duoneb) 3 ml INHALATION Q4HWA.RT [facility] Last Admin: 02/12/19 14:40 Dose: Not Given Aspirin (Ecotrin) 81 mg PO DAILY@0800 [facility] Last Admin: 02/12/19 09:36 Dose: 81 mg Atorvastatin Calcium (Lipitor) 10 mg PO QHS [facility] Last Admin: 02/11/19 22:14 Dose: 10 mg Buspirone HCl (Buspar) 15 mg PO BID [facility] Last Admin: 02/12/19 09:36 Dose: 15 mg Desipramine HCl (Norpramin) 100 mg PO QHS [facility] Last Admin: 02/11/19 22:15 Dose: 100 mg Enoxaparin Sodium (Lovenox) 40 mg SC DAILY@1000 [facility] Last Admin: 02/12/19 09:38 Dose: 40 mg Furosemide (Lasix) 40 mg IV BID@1000,1800 [facility] Last Admin: 02/12/19 09:37 Dose: 40 mg Guaifenesin (Mucinex) 1,200 mg PO BID [facility] Last Admin: 02/12/19 09:38 Dose: 1,200 mg Levofloxacin (Levaquin Iv) 750 mg in 150 mls @ 100 mls/hr IV Q48H [facility] Last Admin: 02/11/19 20:02 Dose: 100 mls/hr Metronidazole (Flagyl) 500 mg in 100 mls @ 100 mls/hr IV Q8 [facility] Last Admin: 02/12/19 13:10 Dose: 100 mls/hr Methylprednisolone (Solu-Medrol) 60 mg IV Q8 [facility] Last Admin: 02/12/19 14:34 Dose: 60 mg Montelukast Sodium (Singulair) 10 mg PO QPM [facility] Last Admin: 02/11/19 20:03 Dose: 10 mg Pancrelipase (Creon Dr 6,000 Unit Capsule) 2 capsule PO TIDCM [facility] Last Admin: 02/12/19 16:38 Dose: 2 capsule Pantoprazole Sodium (Protonix) 40 mg PO DAILY [facility] Last Admin: 02/12/19 09:38 Dose: 40 mg Polysaccharide Iron Complex (Ferrex 150) [facility] Last Admin: 02/12/19 09:36 Dose: 150 mg Propranolol HCl (Inderal La) 80 mg PO DAILY [facility] Last Admin: 02/12/19 09:37 Dose: 80 mg Sertraline HCl (Zoloft) 100 mg PO DAILY [facility] Last Admin: 02/12/19 09:38 Dose: 100 mg Sodium Chloride () 5 - 15 ml IV UD PRN PRN Reason: SALINE FLUSH Last Admin: 02/11/19 17:35 Dose: 10 ml Microbiology Past 72 Hours 02/10/19 14:15 Urine, Clean Catch Streptococcus pneumoniae Antigen (M - Final 02/10/19 14:10 Urine, Clean Catch Legionella Antigen - Final 02/09/19 16:15 Mucosa - Nasopharyngeal Respiratory Panel (PCR) - Final 02/09/19 16:15 Mucosa - Nose Influenza Types A,B Direct FA ([facility]) - Final Laboratory Results 02/12/19 05:45: WBC 18.5 H, RBC 3.77 L, Hgb 11.0 L, Hct 34.6 L, MCV 91.8, MCH 29.2, MCHC 31.8 L, RDW 15.6 H, RDW Differential 52.7 H, Plt Count 408, MPV 10.2, Immature Gran % (Auto) 2.000 H, Neut % (Auto) 70.9 H, Lymph % (Auto) 12.3 L, Mason % (Auto) 7.0, Eos % (Auto) 7.5 H, Baso % (Auto) 0.3, Absolute Neuts (auto) 13.1 H, Absolute Lymphs (auto) 2.28, Total Counted Not Reportable, Diff Path Review Reviewed 02/12/19 05:45: Sodium 141, Potassium 3.2 L, Chloride 108 H, Carbon Dioxide 24.0, Anion Gap 9, BUN 13, Creatinine 1.27 H, Estim Creat Clear Calc 46.38, Est GFR (MDRD) Af Amer 55 L, Est GFR (MDRD) Non-Af 46 L, BUN/Creatinine Ratio 10.2, Glucose 117 H, Calcium 9.0 02/12/19 14:19: Specimen Type ART, Sample Site L Radial, pH 7.40, Bicarbonate Actual 20.7 L, POC Total CO2 22, Base Excess -4 L, O2 Saturation 96, ABG pCO2 33.2 L, ABG pO2 79, Arsh Test POS, O2 Delivery Device Nasal Can, Liter Flow 9.0, Blood Gas Notified Whom HOSP , Blood Gas Notified Time 1415 Code Visit Inpatient E&M: 34274 Subs Hosp L3
--- NOTE | 2019-02-12 12:11 | ECHOD_ITS ---
Reason For Study: CHF Procedure This was a 2D Doppler, Color Flow transthoracic echocardiogram. The study was technically difficult. Exam performed portable in patient room. Left Ventricle Normal LV size. Left ventricular systolic function is normal. The estimated ejection fraction is 55 %. Transmitral doppler flow suggestive of impaired relaxation of left ventricle. No regional wall motion abnormalities noted. Right Ventricle Normal RV size. Normal systolic function. Atria Normal left atrium. Normal right atrium. No doppler evidence for ASD. Mitral Valve There is no mitral annular calcification. Mild mitral valve prolapse. Trivial mitral valve insufficiency. Tricuspid Valve Normal tricuspid valve. Mild tricuspid valve insufficiency. Right ventricular systolic pressure estimated to be 46 mmHg. Aortic Valve Trisinus/trileaflet aortic valve. Normal aortic valve. Pulmonic Valve The pulmonic valve is not well visualized. Trivial pulmonic valve insufficiency. Great Vessels Normal sized aortic root. Pericardium/Pleural No pericardial effusion. MMode/2D Measurements & Calculations LVIDd: 3.9 cm IVSd: 0.87 cm Ao root diam: 3.1 cm LVIDs: 2.8 cm LVPWd: 0.90 cm RVDd: 3.6 cm FS: 28.1 % LAV(MOD-bp): 23.9 ml LVAd ap4: 18.9 cm2 SV(MOD-sp4): 22.9 ml LAV(MOD-bp) Indexed: 13.5 ml/m2 EDV(MOD-sp4): 45.7 ml LAV(MOD-sp2): 22.5 ml EDV(sp4-el): 47.2 ml LAV(MOD-sp4): 24.6 ml LVAs ap4: 12.0 cm2 ESV(MOD-sp4): 22.8 ml ESV(sp4-el): 22.2 ml EF(MOD-sp4): 50.1 % EF(sp4-el): 52.9 % SV(sp4-el): 25.0 ml LA A4 area: 11.0 cm2 LA dimension(2D): 2.6 cm RA A4 area: 9.3 cm2 Time Measurements MV dec time: 0.18 sec Doppler Measurements & Calculations MV E max lopez: 49.9 cm/sec Lat Peak E' Lopez: 7.5 cm/sec Med Peak E' Lopez: 5.0 cm/sec MV A max lopez: 67.4 cm/sec E/E' lat: 6.7 E/E' med: 10.0 MV E/A: 0.74 Ao V2 max: 129.3 cm/sec LV V1 max: 108.6 cm/sec PA V2 max: 96.3 cm/sec Ao max P.7 mmHg LV V1 max P.7 mmHg PI end-d lopez: 120.3 cm/sec TR max lopez: 325.7 cm/sec TR max P.5 mmHg Interpretation Summary The study was technically difficult. Left ventricular systolic function is normal. The estimated ejection fraction is 55 %. Mild mitral valve prolapse. Trivial mitral valve insufficiency. Mild tricuspid valve insufficiency. Trivial pulmonic valve insufficiency. Right ventricular systolic pressure estimated to be 46 mmHg. Transmitral doppler flow suggestive of impaired relaxation of left ventricle Ordering Physician: ERIKA Marsh Referring Physician: MARIA LUISA TAYLOR Performed By: Surekha Alcazar, RDCS, RVT
--- NOTE | 2019-02-12 12:28 | PN_ITS ---
<Christina Ferreira - Last Filed: 02/12/19 12:29> Patient Problems: Active and Suspected Problems (Last Reviewed 09/17/18 @ 13:38 by Shannan Sepulveda) Malaise (Acute) Low pulse oximetry (Acute) Subjective: Patient seen and examined. Reports increased shortness of breath this morning requiring increased supplemental oxygen which has since resolved. She reports sleeping at an incline to help with her breathing. She complains of speech therapy recommended dietary restrictions and request regular water. - Physical Exam General: Alert, Oriented x3, Cooperative HEENT: Atraumatic, PERRLA, EOMI, Normocephalic Oral: Dry Mucosa Neck: Supple, No JVD, Negative Carotid Bruits Lungs: Diminished, Rales, Wheezes Cardiovascular: Regular rate, No murmurs Abdomen: Bowel Sounds Present, Soft, Non Tender, Non-Distended Extremities: No clubbing, No cyanosis, No edema, Capillary Refill Less than 3 Seconds Skin: No rashes, No breakdown Musculoskeletal: No Tenderness to Palpation of Joints or Extremities Neurological: Cranial nerves II-XII grossly intact, Neuro grossly intact Psych/Mental Status: Normal Affect, Appropriate Vital Signs Temp Pulse Resp BP Pulse Ox 98.4 F 94 20 H 102/59 L 94 02/12/19 10:45 02/12/19 10:45 02/12/19 10:45 02/12/19 10:45 02/12/19 10:45 Oxygen Flow Rate (L/min) 9 Oxygen Delivery Method Nasal Cannula Weight: 147 lb 4.301 oz Body Mass Index (BMI) 23.1 Intake and Output for Last 24 Hours 02/10/19 02/11/19 02/12/19 23:59 23:59 23:59 Intake Total 4376.4 / 4376.4 2185 / 2185 640 / 640 Output Total 1400 / 1400 2350 / 2350 700 / 700 Balance 2976.4 / 2976.4 -165 / -165 -60 / -60 Microbiology Past 72 Hours 02/10/19 14:15 Streptococcus pneumoniae Antigen (M - Final Urine, Clean Catch 02/10/19 14:10 Legionella Antigen - Final Urine, Clean Catch 02/09/19 16:15 Respiratory Panel (PCR) - Final Mucosa - Nasopharyngeal 02/09/19 16:15 Influenza Types A,B Direct FA ([facility]ALINA) - Final Mucosa - Nose Laboratory Tests Past 24 Hrs 02/12/19 02/12/19 05:45 05:45 WBC 18.5 H RBC 3.77 L Hgb 11.0 L Hct 34.6 L MCV 91.8 MCH 29.2 MCHC 31.8 L RDW 15.6 H RDW Differential 52.7 H Plt Count 408 MPV 10.2 Immature Gran % (Auto) 2.000 H Neut % (Auto) 70.9 H Lymph % (Auto) 12.3 L Murray % (Auto) 7.0 Eos % (Auto) 7.5 H Baso % (Auto) 0.3 Absolute Neuts (auto) 13.1 H Absolute Lymphs (auto) 2.28 Total Counted Not Reportable Diff Path Review March Sodium 141 Potassium 3.2 L Chloride 108 H Carbon Dioxide 24.0 Anion Gap 9 BUN 13 Creatinine 1.27 H Estim Creat Clear Calc 46.38 Est GFR (MDRD) Af Amer 55 L Est GFR (MDRD) Non-Af 46 L BUN/Creatinine Ratio 10.2 Glucose 117 H Calcium 9.0 Medical Necessity - Tobacco Use Smoking Status: Former smoker Tobacco Use: Non-smoker Assessment/Plan All Active Problems (Last Reviewed 09/17/18 @ 13:38 by Shannan Sepulveda) Malaise (Acute) Low pulse oximetry (Acute) Chest pain, precordial (Acute) Chest pain, unspecified (Acute) 1. Acute hypoxic respiratory failure multifactorial secondary to to bilateral community-acquired pneumonia, possible aspiration pneumonia, suspected asthma exacerbation versus noninfectious inflammatory pneumonitis, and mild acute diastolic CHF-continue supplement oxygen to maintain O2 at or above 90%. Wean oxygen as tolerated. Walking pulse ox prior to discharge. Dr. Herbert consult pending. 2. Bilateral community acquired pneumonia, possible aspiration pneumonia, dysphagia-ST consulted. Continue dietary modifications per speech therapy recommendations. Continue IV Levaquin and IV Flagyl. Urine for strep and Legionella negative. Respiratory panel negative. Send sputum for culture. R epeat chest x-ray this morning shows interval worsening of the left greater than right multifocal airspace disease. Edema, noninfectious inflammatory pneumonitis possible? CT of chest obtained due to elevated d-dimer which was negative for PE. Diffuse patchy groundglass airspace disease noted bilaterally suggesting pulmonary edema. 3. Suspected asthma exacerbation versus noninfectious inflammatory pneumonitis- wheezing on assessment. Begin IV Solu-Medrol. Pulmonary consulted. Albuterol and DuoNeb aerosols. 4. Acute diastolic CHF-BNP mildly elevated. Chest x-ray admission with atypica l pulmonary edema. Continue IV Lasix. Repeat echocardiogram. Echocardiogram September 2018 with EF 65%. 5. Hypokalemia/hypomagnesia-replace per protocol. Trend BMP. 6. History of CVA- continue aspirin, statin. PT/OT/ST. 7. Hypertension- stable, continue current regimen including propanolol. 8. Hyperlipidemia- continue statin. 9. Iron deficiency anemia-stable, trend cbc. 10. Chronic kidney disease stage III secondary to solitary kidney-stable, trend BMP. 11. Depression/anxiety-continue home regimen including buspirone, desipramine, sertraline. 12. MRDD 13. Falls/Debility- PT/OT. PT recommended additional therapy. DVT prophylaxis-Lovenox subcu This patient was seen by ERIKA Marsh under the supervision of Dr. Zaragoza. <Salvador Zaragoza - Last Filed: 02/12/19 17:26> Subjective: Seen and examined. Patient is still very short of breath on 9 L of high flow oxygen. ABG was ordered. She is very tachypneic. ABG reported pH 7.4, PCO2 33/PO2 79 on 9 L of high flow oxygen. Cast with the meat packager Dr. Herbert. - Physical Exam General: Alert, Oriented x3, Cooperative HEENT: Atraumatic, PERRLA, EOMI, Normocephalic Neck: Supple, No JVD, Negative Carotid Bruits Lungs: Diminished, Rales, Short of Breath, Tachypneic, Wheezes Cardiovascular: Regular rate, Regular Rhythm, Normal S1, Normal S2, No murmurs Abdomen: Bowel Sounds Present, Soft, Non Tender, Non-Distended Extremities: No edema, Capillary Refill Less than 3 Seconds Skin: No rashes, No breakdown Musculoskeletal: No Tenderness to Palpation of Joints or Extremities, Arthritic Changes Neurological: Cranial nerves II-XII grossly intact Psych/Mental Status: Normal Affect, Appropriate Vital Signs Temp Pulse Resp BP Pulse Ox 97.2 F L 98 20 H 98/50 L 96 02/12/19 16:47 02/12/19 16:47 02/12/19 16:47 02/12/19 16:47 02/12/19 16:47 Oxygen Flow Rate (L/min) 9 Oxygen Delivery Method Nasal Cannula Weight: 147 lb 4.301 oz Body Mass Index (BMI) 23.1 Intake and Output for Last 24 Hours 02/10/19 02/11/19 02/12/19 23:59 23:59 23:59 Intake Total 4376.4 / 4376.4 2185 / 2185 1040 / 1040 Output Total 1400 / 1400 2350 / 2350 1100 / 1100 Balance 2976.4 / 2976.4 -165 / -165 -60 / -60 Microbiology Past 72 Hours 02/10/19 14:15 Streptococcus pneumoniae Antigen (M - Final Urine, Clean Catch 02/10/19 14:10 Legionella Antigen - Final Urine, Clean Catch 02/09/19 16:15 Respiratory Panel (PCR) - Final Mucosa - Nasopharyngeal 02/09/19 16:15 Influenza Types A,B Direct FA ([facility]INA) - Final Mucosa - Nose Laboratory Tests Past 24 Hrs 02/12/19 02/12/19 02/12/19 05:45 05:45 14:19 WBC 18.5 H RBC 3.77 L Hgb 11.0 L Hct 34.6 L MCV 91.8 MCH 29.2 MCHC 31.8 L RDW 15.6 H RDW Differential 52.7 H Plt Count 408 MPV 10.2 Immature Gran % (Auto) 2.000 H Neut % (Auto) 70.9 H Lymph % (Auto) 12.3 L Murray % (Auto) 7.0 Eos % (Auto) 7.5 H Baso % (Auto) 0.3 Absolute Neuts (auto) 13.1 H Absolute Lymphs (auto) 2.28 Total Counted Not Reportable Diff Path Review Reviewed Specimen Type ART Sample Site L Radial pH 7.40 Bicarbonate Actual 20.7 L POC Total CO2 22 Base Excess -4 L O2 Saturation 96 ABG pCO2 33.2 L ABG pO2 79 Arsh Test POS O2 Delivery Device Nasal Can Liter Flow 9.0 Blood Gas Notified Whom HOSP Blood Gas Notified Time 1415 Sodium 141 Potassium 3.2 L Chloride 108 H Carbon Dioxide 24.0 Anion Gap 9 BUN 13 Creatinine 1.27 H Estim Creat Clear Calc 46.38 Est GFR (MDRD) Af Amer 55 L Est GFR (MDRD) Non-Af 46 L BUN/Creatinine Ratio 10.2 Glucose 117 H Calcium 9.0 Assessment/Plan This patient was seen in conjunction with MACARONI PRESS OPERATORChristina. I have independently interviewed and examined the patient and reviewed pertinent history, examination findings, laboratory and plan of management. I have reviewed the note and agree with the documented findings with the few additional points. In brief, patient is admitted for shortness of breath and hypoxia. Patient also had progressive worsening of cough. Patient had elevated d-dimer and CT chest was done. CT chest shows bilateral diffuse groundglass patchy airspace disease reported as pulmonary edema. Clinically patient does not seem to have pulmonary edema. Patient BNP is 130 which is mildly elevated. Patient does not have history of coronary artery disease but has mild mitral valve prolapse. Patient does not have pedal edema or generalized swelling. Patient had echo in September 2018 reported as EF 65% with evidence of diastolic dysfunction. Normal RV size and systolic function. Normal right and left atria. Trivial MR. Mild TR, RVSP 39 mmHg. Discussed with the mother and patient was admitted in active hospital in 2014 for 3 months. There, she had E. coli bacteremia which was complicated with a stroke and had kidney failure for which she required nephrectomy. Patient has oropharyngeal dysphagia secondary to stroke since then and feels sometimes choking on swallowing big chunk of food. Patient is on modified dysphagia diet. BiPAP is contracted in view of possible worsening of aspiration/pneumonia. Patient has history of asthma. Patient had previous CT chest done in January 2018 was reported as interstitial septal thickening of the lung with groundglass opacities in the lower chest. I think patient has associated interstitial lung disease or hypersensitivity pneumonitis. Medical record in fact received from PCP but not from Dr. Herbert. On IV Levaquin plus Flagyl. Speech/swallow evaluation and management to continue. Discussed with Dr. Herbert and he agreed to see the patient in the evening. Patient is started on Solu-Medrol 60 mg IV every 8 hourly. ABG reported pH 7.4, PCO2 33/PO2 79 on 9 L of high flow oxygen. ABG suggestive of severe hypoxia with high hiatal gradient and respiratory alkalosis. Patient has hypokalemia and is being replaced. Patient has acute kidney injury, probably from sepsis/prerenal on CKD stage III secondary to solitary kidney. I have discussed my assessment with MACARONI PRESS OPERATORChristina and orders have been reviewed. Active Medications Acetaminophen (Tylenol) 650 mg PO Q6H PRN PRN PRN Reason: Mild Pain (1-3)/Temp > 100.7 F Last Admin: 02/11/19 20:18 Dose: 650 mg Albuterol Sulfate (Ventolin Aerosols) 2.5 mg INHALATION Q2H PRN PRN PRN Reason: Shortness of breath Albuterol/Ipratropium (Duoneb) 3 ml INHALATION Q4HWA.RT [facility] Last Admin: 02/12/19 14:40 Dose: Not Given Aspirin (Ecotrin) 81 mg PO DAILY@0800 [facility] Last Admin: 02/12/19 09:36 Dose: 81 mg Atorvastatin Calcium (Lipitor) 10 mg PO QHS [facility] Last Admin: 02/11/19 22:14 Dose: 10 mg Buspirone HCl (Buspar) 15 mg PO BID [facility] Last Admin: 02/12/19 09:36 Dose: 15 mg Desipramine HCl (Norpramin) 100 mg PO QHS [facility] Last Admin: 02/11/19 22:15 Dose: 100 mg Enoxaparin Sodium (Lovenox) 40 mg SC DAILY@1000 [facility] Last Admin: 02/12/19 09:38 Dose: 40 mg Furosemide (Lasix) 40 mg IV BID@1000,1800 [facility] Last Admin: 02/12/19 09:37 Dose: 40 mg Guaifenesin (Mucinex) 1,200 mg PO BID [facility] Last Admin: 02/12/19 09:38 Dose: 1,200 mg Levofloxacin (Levaquin Iv) 750 mg in 150 mls @ 100 mls/hr IV Q48H [facility] Last Admin: 02/11/19 20:02 Dose: 100 mls/hr Metronidazole (Flagyl) 500 mg in 100 mls @ 100 mls/hr IV Q8 [facility] Last Admin: 02/12/19 13:10 Dose: 100 mls/hr Methylprednisolone (Solu-Medrol) 60 mg IV Q8 [facility] Last Admin: 02/12/19 14:34 Dose: 60 mg Montelukast Sodium (Singulair) 10 mg PO QPM [facility] Last Admin: 02/11/19 20:03 Dose: 10 mg Pancrelipase (Creon Dr 6,000 Unit Capsule) 2 capsule PO TIDCM [facility] Last Admin: 02/12/19 16:38 Dose: 2 capsule Pantoprazole Sodium (Protonix) 40 mg PO DAILY [facility] Last Admin: 02/12/19 09:38 Dose: 40 mg Polysaccharide Iron Complex ([facility]rex 150) [facility] Last Admin: 02/12/19 09:36 Dose: 150 mg Propranolol HCl (Inderal La) 80 mg PO DAILY [facility] Last Admin: 02/12/19 09:37 Dose: 80 mg Sertraline HCl (Zoloft) 100 mg PO DAILY [facility] Last Admin: 02/12/19 09:38 Dose: 100 mg Sodium Chloride () 5 - 15 ml IV UD PRN PRN Reason: SALINE FLUSH Last Admin: 02/11/19 17:35 Dose: 10 ml Microbiology Past 72 Hours 02/10/19 14:15 Urine, Clean Catch Streptococcus pneumoniae Antigen (M - Final 02/10/19 14:10 Urine, Clean Catch Legionella Antigen - Final 02/09/19 16:15 Mucosa - Nasopharyngeal Respiratory Panel (PCR) - Final 02/09/19 16:15 Mucosa - Nose Influenza Types A,B Direct FA ([facility]) - Final Laboratory Results 02/12/19 05:45: WBC 18.5 H, RBC 3.77 L, Hgb 11.0 L, Hct 34.6 L, MCV 91.8, MCH 29.2, MCHC 31.8 L, RDW 15.6 H, RDW Differential 52.7 H, Plt Count 408, MPV 10.2, Immature Gran % (Auto) 2.000 H, Neut % (Auto) 70.9 H, Lymph % (Auto) 12.3 L, Murray % (Auto) 7.0, Eos % (Auto) 7.5 H, Baso % (Auto) 0.3, Absolute Neuts (auto) 13.1 H, Absolute Lymphs (auto) 2.28, Total Counted Not Reportable, Diff Path Review Reviewed 02/12/19 05:45: Sodium 141, Potassium 3.2 L, Chloride 108 H, Carbon Dioxide 24.0, Anion Gap 9, BUN 13, Creatinine 1.27 H, Estim Creat Clear Calc 46.38, Est GFR (MDRD) Af Amer 55 L, Est GFR (MDRD) Non-Af 46 L, BUN/Creatinine Ratio 10.2, Glucose 117 H, Calcium 9.0 02/12/19 14:19: Specimen Type ART, Sample Site L Radial, pH 7.40, Bicarbonate Actual 20.7 L, POC Total CO2 22, Base Excess -4 L, O2 Saturation 96, ABG pCO2 33.2 L, ABG pO2 79, Arsh Test POS, O2 Delivery Device Nasal Can, Liter Flow 9.0, Blood Gas Notified Whom HOSP , Blood Gas Notified Time 1415 Code Visit Inpatient E&M: 87882 Subs Hosp L3
[2019-02-12 14:03] LABS: Pathologist Review Reviewed
[2019-02-12 14:25] LABS: Allen Test POS; Base Excess -4 mmol/L (-2 to +2); Bicarbonate 20.7 mmol/L (22-26); Blood Gas Specimen Type ART; O2 Delivery Device Nasal Can; PO2 79 mmHG (75-100); SITE L Radial; SO2 96 % (95-99); Time Given 1415; Total Carbon Dioxide 22 mmol/L; pCO2 33.2 mmHg (35-45)
[2019-02-12] MEDS: MethylPREDNISolone 125 MG/2 ML Vial 60 MG IV ×2 (14:34→21:21)
[2019-02-12] MEDS: Montelukast 10 MG Tablet PO (21:20)
[2019-02-12] MEDS: Atorvastatin Calcium 10 MG Tablet PO (21:21)
[2019-02-13] VITALS (17 sets, daily range): BP systolic 91–109; BP diastolic 46–59; PULSE 71–89; RESP 16–20; TEMP 36.4–36.8; O2SAT 92–98; BMI 23.1
[2019-02-13 05:22] LABS: Hematocrit 36.5 % (37-47); Hemoglobin 11.2 g/dl (12.0-15.0); Mean Corp Hgb Conc 30.7 g/gl (32-36); Mean Corpuscular Hgb 28.6 pg (27.0-32.0); Mean Corpuscular Volume 93.4 fL (81-99); Mean Platelet Vol. 10.2 fl (6.2-12.0); Platelet Count 411 K/mm3 (150-450); RBC Distribution Width CV 15.3 % (11.6-14.6); RBC Distribution Width SD 51.1 fl (35.1-43.9); Red Blood Count 3.91 M/mm3 (4.2-5.4); White Blood Count 16.5 K/mm3 (4.4-11.0)
[2019-02-13 05:34] LABS: Scan Indicated on CBC? Y/N NO
[2019-02-13 05:43] LABS: International Normalized Ratio 1.2; Prothrombin Time (Protime)PT. 15.4 SECONDS (11.7-14.9)
[2019-02-13] MEDS: MethylPREDNISolone 125 MG/2 ML Vial 60 MG IV (05:43)
[2019-02-13 05:44] LABS: Anion Gap 7 (5-15); BUN 25 mg/dL (7-18); BUN/Creat Ratio 16.8 RATIO (10-20); Calcium,Total 8.9 mg/dL (8.5-10.1); Chloride 107 mmol/L (98-107); Creatinine, Serum 1.49 mg/dL (0.55-1.02); EST Glomerular Filtration Rate 38 mL/min (>60); Est Glom Filt Rate - Afr Amer 46 mL/min (>60); Estimated Creatinine Clearance 39.53 ml/min; Glucose 195 mg/dL (74-106); Magnesium 1.4 mg/dL (1.6-2.6); Potassium 4.4 mmol/L (3.5-5.1); Sodium Level 141 mmol/L (136-145)
[2019-02-13 05:45] LABS: Partial Thromboplast Time 46.9 Seconds (24.1-36.2)
[2019-02-13] MEDS: Ipratropium/Albuterol Sulfate 3 ML AMPUL.NEB INHALATION ×4 (07:02→19:28)
--- NOTE | 2019-02-13 07:50 | RAD_ITS ---
STUDY: X-RAY CHEST REASON FOR EXAM: Female, 58 years old. Shortness of breath TECHNIQUE: PA and lateral views of the chest. COMPARISON: Chest x-ray 02/11/2019. FINDINGS: There is improvement of previously seen bilateral multifocal pulmonary opacities particularly in the upper lung daily. There is residual airspace opacity in the lung bases. There is no demonstrated pleural abnormality. Normal size heart. Normal mediastinum and fritz. Normal visualized pulmonary arteries. Normal visualized aortic arch and descending thoracic aorta. Normal visualized thoracic spine. Normal visualized ribs, clavicles, and shoulders. There are surgical clips in the right and left abdomen. RAD/Chest PA and Lateral IMPRESSION: Interval improvement particularly in the upper lung daily. There is residual airspace opacity at the lung bases. Electronically Signed: Joy Marinelli, at 16:37 EDT Tel , Service support ,
--- NOTE | 2019-02-13 07:59 | PN_ITS ---
Patient Problems: Active and Suspected Problems (Last Reviewed 09/17/18 @ 13:38 by Shannan Sepulveda) Malaise (Acute) Low pulse oximetry (Acute) - Physical Exam General: Alert, Oriented x3, Cooperative HEENT: Atraumatic, EOMI, Normocephalic Oral: Moist Mucosa Neck: Supple, No JVD, Negative Carotid Bruits, No Nodes, Trachea Midline Lungs: - - rales l base, r rhonchi, no wheeze, no fx rub, no cough Cardiovascular: Regular rate, Normal S1, No murmurs, No Ectopic Activity Abdomen: Bowel Sounds Present, Soft, Non Tender, Non-Distended, No Hepato- splenomegaly Extremities: No edema, Capillary Refill Less than 3 Seconds, No Calf Tenderness, Peripheral Pulses Normal Skin: No rashes, No breakdown Musculoskeletal: No Tenderness to Palpation of Joints or Extremities Neurological: Cranial nerves II-XII grossly intact Psych/Mental Status: Normal Affect, Appropriate, Anxious Vital Signs Temp Pulse Resp BP Pulse Ox 97.8 F 83 18 91/56 L 95 02/13/19 05:30 02/13/19 07:16 02/13/19 07:16 02/13/19 05:30 02/13/19 07:15 Oxygen Flow Rate (L/min) 10 Oxygen Delivery Method Nasal Cannula Weight: 66.8 kg Body Mass Index (BMI) 23.1 Intake and Output for Last 24 Hours 02/11/19 02/12/19 02/13/19 23:59 23:59 23:59 Intake Total 2185 / 2185 1380 / 1380 100 / 100 Output Total 2350 / 2350 1100 / 1100 Balance -165 / -165 280 / 280 100 / 100 Microbiology Past 72 Hours 02/10/19 14:15 Streptococcus pneumoniae Antigen (M - Final Urine, Clean Catch 02/10/19 14:10 Legionella Antigen - Final Urine, Clean Catch 02/09/19 16:15 Respiratory Panel (PCR) - Final Mucosa - Nasopharyngeal Laboratory Tests Past 24 Hrs 02/12/19 02/12/19 02/13/19 05:45 14:19 05:05 WBC 16.5 H RBC 3.91 L Hgb 11.2 L Hct 36.5 L MCV 93.4 MCH 28.6 MCHC 30.7 L RDW 15.3 H RDW Differential 51.1 H Plt Count 411 MPV 10.2 Diff Path Review Reviewed PT INR APTT Specimen Type ART Sample Site L Radial pH 7.40 Bicarbonate Actual 20.7 L POC Total CO2 22 Base Excess -4 L O2 Saturation 96 ABG pCO2 33.2 L ABG pO2 79 Arsh Test POS O2 Delivery Device Nasal Can Liter Flow 9.0 Blood Gas Notified Whom [facility] Blood Gas Notified Time 1415 Sodium Potassium Chloride Carbon Dioxide Anion Gap BUN Creatinine Estim Creat Clear Calc Est GFR (MDRD) Af Amer Est GFR (MDRD) Non-Af BUN/Creatinine Ratio Glucose Calcium Magnesium 02/13/19 02/13/19 05:05 05:05 WBC RBC Hgb Hct MCV MCH MCHC RDW RDW Differential Plt Count MPV Diff Path Review PT 15.4 H INR 1.2 APTT 46.9 H Specimen Type Sample Site pH Bicarbonate Actual POC Total CO2 Base Excess O2 Saturation ABG pCO2 ABG pO2 Arsh Test O2 Delivery Device Liter Flow Blood Gas Notified Whom Blood Gas Notified Time Sodium 141 Potassium 4.4 Chloride 107 Carbon Dioxide 27.0 Anion Gap 7 BUN 25 H Creatinine 1.49 H Estim Creat Clear Calc 39.53 Est GFR (MDRD) Af Amer 46 L Est GFR (MDRD) Non-Af 38 L BUN/Creatinine Ratio 16.8 Glucose 195 H Calcium 8.9 Magnesium 1.4 L Medical Necessity - Tobacco Use Smoking Status: Former smoker Tobacco Use: Non-smoker Assessment/Plan All Active Problems (Last Reviewed 09/17/18 @ 13:38 by Shannan Sepulveda) Malaise (Acute) Low pulse oximetry (Acute) Chest pain, precordial (Acute) Chest pain, unspecified (Acute) Interstitial pneumonia, not c/w aspiration. pt is high asp risk. DDX is Eosinophilic pn, NSIP, CVD ILD, [place], DAD from pneumonia atyp plan pa lat chest this am npo hold lovenox. bal with culture and cell count cont steroids and abx for now too sx for bx of lung severe pulm htn noted w/ large pa trunk. echo pa pressure recorded in 40s high flow Oxygen, may need PAP therapy after bronch. pt aware of risks and benefits of bronch, mother aware of same. await this am film for bronch later today.
[2019-02-13] MEDS: Aspirin E.C. 81 MG Tablet PO (10:35)
[2019-02-13] MEDS: busPIRone 15 MG TABLET PO ×2 (10:35→22:21)
[2019-02-13] MEDS: Iron Polysaccharide Complex 150 MG CAPSULE PO (10:35)
[2019-02-13] MEDS: Propranolol LA 80 MG Capsule PO (10:36)
[2019-02-13] MEDS: Furosemide 40 MG/4 ML Vial IV (10:36)
[2019-02-13] MEDS: Sertraline 100 MG Tablet PO (10:36)
[2019-02-13] MEDS: guaiFENesin 1,200 MG Tablet 1200 MG PO ×2 (10:36→22:22)
[2019-02-13] MEDS: Pantoprazole Sodium 40 MG Tablet PO (10:36)
--- NOTE | 2019-02-13 11:25 | PN_ITS ---
<Christina Ferreira - Last Filed: 02/13/19 11:26> Patient Problems: Active and Suspected Problems (Last Reviewed 09/17/18 @ 13:38 by Shannan Sepulveda) Malaise (Acute) Low pulse oximetry (Acute) Subjective: Patient complains of dry mouth. Requesting water. Reports improvement in breathing. - Physical Exam General: Alert, Oriented x3, Cooperative HEENT: Atraumatic, PERRLA, EOMI, Normocephalic Oral: Dry Mucosa Neck: Supple, No JVD, Negative Carotid Bruits Lungs: Diminished, Rales, Rhonchi Cardiovascular: Regular rate, Regular Rhythm, Normal S1, Normal S2, No murmurs Abdomen: Bowel Sounds Present, Soft, Non Tender, Non-Distended Extremities: No clubbing, No cyanosis, No edema, Capillary Refill Less than 3 Seconds Skin: No rashes, No breakdown Musculoskeletal: No Tenderness to Palpation of Joints or Extremities Neurological: Cranial nerves II-XII grossly intact, Neuro grossly intact Psych/Mental Status: Normal Affect, Appropriate Vital Signs Temp Pulse Resp BP Pulse Ox 97.8 F 83 18 91/56 L 95 02/13/19 05:30 02/13/19 07:16 02/13/19 07:16 02/13/19 05:30 02/13/19 07:15 Oxygen Flow Rate (L/min) 8 Oxygen Delivery Method Nasal Cannula Weight: 147 lb 4.301 oz Body Mass Index (BMI) 23.1 Intake and Output for Last 24 Hours 02/11/19 02/12/19 02/13/19 23:59 23:59 23:59 Intake Total 2185 / 2185 1380 / 1380 100 / 100 Output Total 2350 / 2350 1100 / 1100 Balance -165 / -165 280 / 280 100 / 100 Microbiology Past 72 Hours 02/10/19 14:15 Streptococcus pneumoniae Antigen (M - Final Urine, Clean Catch 02/10/19 14:10 Legionella Antigen - Final Urine, Clean Catch 02/09/19 16:15 Respiratory Panel (PCR) - Final Mucosa - Nasopharyngeal Laboratory Tests Past 24 Hrs 02/12/19 02/12/19 02/13/19 05:45 14:19 05:05 WBC 16.5 H RBC 3.91 L Hgb 11.2 L Hct 36.5 L MCV 93.4 MCH 28.6 MCHC 30.7 L RDW 15.3 H RDW Differential 51.1 H Plt Count 411 MPV 10.2 Diff Path Review Reviewed PT INR APTT Specimen Type ART Sample Site L Radial pH 7.40 Bicarbonate Actual 20.7 L POC Total CO2 22 Base Excess -4 L O2 Saturation 96 ABG pCO2 33.2 L ABG pO2 79 Arsh Test POS O2 Delivery Device Nasal Can Liter Flow 9.0 Blood Gas Notified Whom [facility] MD Blood Gas Notified Time 1415 Sodium Potassium Chloride Carbon Dioxide Anion Gap BUN Creatinine Estim Creat Clear Calc Est GFR (MDRD) Af Amer Est GFR (MDRD) Non-Af BUN/Creatinine Ratio Glucose Calcium Magnesium 02/13/19 02/13/19 05:05 05:05 WBC RBC Hgb Hct MCV MCH MCHC RDW RDW Differential Plt Count MPV Diff Path Review PT 15.4 H INR 1.2 APTT 46.9 H Specimen Type Sample Site pH Bicarbonate Actual POC Total CO2 Base Excess O2 Saturation ABG pCO2 ABG pO2 Arsh Test O2 Delivery Device Liter Flow Blood Gas Notified Whom Blood Gas Notified Time Sodium 141 Potassium 4.4 Chloride 107 Carbon Dioxide 27.0 Anion Gap 7 BUN 25 H Creatinine 1.49 H Estim Creat Clear Calc 39.53 Est GFR (MDRD) Af Amer 46 L Est GFR (MDRD) Non-Af 38 L BUN/Creatinine Ratio 16.8 Glucose 195 H Calcium 8.9 Magnesium 1.4 L Medical Necessity - Tobacco Use Smoking Status: Former smoker Tobacco Use: Non-smoker Assessment/Plan All Active Problems (Last Reviewed 09/17/18 @ 13:38 by Shannan Sepulveda) Malaise (Acute) Low pulse oximetry (Acute) Chest pain, precordial (Acute) Chest pain, unspecified (Acute) 1. Acute hypoxic respiratory failure multifactorial secondary to interstitial pneumonia, suspected asthma exacerbation, and mild acute diastolic CHF-continue supplement oxygen to maintain O2 at or above 90%. Wean oxygen as tolerated. Walking pulse ox prior to discharge. Dr. Herbert consulted. Pulmonary medicine does not feel aspiration pneumonia is present. Aspiration PNA rule out. 2. Interstitial pneumonia, dysphagia-ST consulted. Continue dietary modifications per speech therapy recommendations. Continue IV Levaquin and IV Flagyl. Urine for strep and Legionella negative. Respiratory panel negative. Send sputum for culture. Chest x-ray 02/11/19 showed interval worsening of the left greater than right multifocal airspace disease. Edema, noninfectious inflammatory pneumonitis possible? Repeat CXR pening. CT of chest obtained due to elevated d-dimer which was negative for PE. Diffuse patchy groundglass airspace disease noted bilaterally suggesting pulmonary edema. Pulmonary medicine consulted. Plan for bronchoscopy, unclear when this will occur. Anticipate 02/16/19. 3. Suspected asthma exacerbation versus noninfectious inflammatory pneumonitis- wheezing on assessment. Begin IV Solu-Medrol. Pulmonary consulted. Albuterol and DuoNeb aerosols. 4. Acute diastolic CHF-BNP mildly elevated. Chest x-ray admission with atypical pulmonary edema. Discontinue IV Lasix. Echocardiogram September 2018 with EF 65%. Repeat echocardiogram shows an EF of 55%, RVSP estimated to be 46 mmHg. 5. Hypokalemia/hypomagnesia-replaced per protocol. Resolved. Trend BMP. 6. History of CVA- continue aspirin, statin. PT/OT/ST. 7. Hypertension- stable, continue current regimen including propanolol. 8. Hyperlipidemia- continue statin. 9. Iron deficiency anemia-stable, trend cbc. 10. Chronic kidney disease stage III secondary to solitary kidney-stable, trend BMP. 11. Depression/anxiety-continue home regimen including buspirone, desipramine, sertraline. 12. MRDD 13. Falls/Debility- PT/OT. PT recommended additional therapy. DVT prophylaxis-Lovenox subcu This patient was seen by ERIKA Marsh under the supervision of Dr. Zaragoza. <Salvador Zaragoza - Last Filed: 02/13/19 12:39> Subjective: Seen and examined. Patient was seen by Dr. Herbert in the morning. Discussed with him. She needs bronchoscopy with BAL. Pulmonary trunk is enlarged 32 mm - Physical Exam General: Alert, Oriented x3, Cooperative HEENT: Atraumatic, PERRLA, EOMI, Normocephalic Neck: Supple, No JVD, Negative Carotid Bruits Lungs: Diminished, Rales, Short of Breath - Better than yesterday, - - On 7 L of oxygen. Cardiovascular: Regular rate, Regular Rhythm, Normal S1, Normal S2, No murmurs Abdomen: Bowel Sounds Present, Soft, Non Tender, Non-Distended Extremities: No clubbing, No cyanosis, No edema, Capillary Refill Less than 3 Seconds Skin: No rashes, No breakdown Musculoskeletal: No Tenderness to Palpation of Joints or Extremities, Arthritic Changes Lymphatic: No Cervical, Supraclavicular, or Inguinal Adenopathy Neurological: Cranial nerves II-XII grossly intact, Neuro grossly intact Psych/Mental Status: Normal Affect, Appropriate Vital Signs Temp Pulse Resp BP Pulse Ox 98.2 F 89 20 H 100/59 L 95 02/13/19 11:27 02/13/19 11:27 02/13/19 11:27 02/13/19 11:27 02/13/19 11:27 Oxygen Flow Rate (L/min) 7 Oxygen Delivery Method Room Air Weight: 147 lb 4.301 oz Body Mass Index (BMI) 23.1 Intake and Output for Last 24 Hours 02/11/19 02/12/19 02/13/19 23:59 23:59 23:59 Intake Total 2185 / 2185 1380 / 1380 460 / 460 Output Total 2350 / 2350 1100 / 1100 300 / 300 Balance -165 / -165 280 / 280 160 / 160 Microbiology Past 72 Hours 02/10/19 14:15 Streptococcus pneumoniae Antigen (M - Final Urine, Clean Catch 02/10/19 14:10 Legionella Antigen - Final Urine, Clean Catch Laboratory Tests Past 24 Hrs 02/12/19 02/12/19 02/13/19 05:45 14:19 05:05 WBC 16.5 H RBC 3.91 L Hgb 11.2 L Hct 36.5 L MCV 93.4 MCH 28.6 MCHC 30.7 L RDW 15.3 H RDW Differential 51.1 H Plt Count 411 MPV 10.2 Diff Path Review Reviewed PT INR APTT Specimen Type ART Sample Site L Radial pH 7.40 Bicarbonate Actual 20.7 L POC Total CO2 22 Base Excess -4 L O2 Saturation 96 ABG pCO2 33.2 L ABG pO2 79 Arsh Test POS O2 Delivery Device Nasal Can Liter Flow 9.0 Blood Gas Notified Whom HOSP Blood Gas Notified Time 1415 Sodium Potassium Chloride Carbon Dioxide Anion Gap BUN Creatinine Estim Creat Clear Calc Est GFR (MDRD) Af Amer Est GFR (MDRD) Non-Af BUN/Creatinine Ratio Glucose Calcium Magnesium 02/13/19 02/13/19 05:05 05:05 WBC RBC Hgb Hct MCV MCH MCHC RDW RDW Differential Plt Count MPV Diff Path Review PT 15.4 H INR 1.2 APTT 46.9 H Specimen Type Sample Site pH Bicarbonate Actual POC Total CO2 Base Excess O2 Saturation ABG pCO2 ABG pO2 Arsh Test O2 Delivery Device Liter Flow Blood Gas Notified Whom Blood Gas Notified Time Sodium 141 Potassium 4.4 Chloride 107 Carbon Dioxide 27.0 Anion Gap 7 BUN 25 H Creatinine 1.49 H Estim Creat Clear Calc 39.53 Est GFR (MDRD) Af Amer 46 L Est GFR (MDRD) Non-Af 38 L BUN/Creatinine Ratio 16.8 Glucose 195 H Calcium 8.9 Magnesium 1.4 L Assessment/Plan This patient was seen in conjunction with DIRECTOR [employer], Christina. I have independently int erviewed and examined the patient and reviewed pertinent history, examination findings, laboratory and plan of management. I have reviewed the note and agree with the documented findings with the few additional points. In brief, patient is admitted for shortness of breath and hypoxia. Patient also had progressive worsening of cough. Patient had elevated d-dimer and CT chest was done. CT chest shows bilateral diffuse groundglass patchy airspace disease reported as pulmonary edema. Clinically patient does not seem to have pulmonary edema. Patient BNP is 130 which is mildly elevated. Patient does not have history of coronary artery disease but has mild mitral valve prolapse. Patient does not have pedal edema or generalized swelling. Patient had echo in September 2018 reported as EF 65% with evidence of diastolic dysfunction. Normal RV size and systolic function. Normal right and left atria. Trivial MR. Mild TR, RVSP 39 mmHg. Discussed with the mother and patient was [facility] hospital in 2014 for 3 months. There, she had E. coli bacteremia which was complicated with a stroke and had kidney failure for which she required nephrectomy. Patient has oropharyngeal dysphagia secondary to stroke since then and feels sometimes choking on swallowing big chunk of food. Patient is on modified dysphagia diet. BiPAP is contracted in view of possible worsening of aspiration/pneumonia. Patient has history of asthma. Patient had previous CT chest done in January 2018 was reported as interstitial septal thickening of the lung with groundglass opacities in the lower chest. CT chest shows prominent pulmonary trunk about 32 mm and RVSP 46 mmHg suggestive of pulmonary hypertension. I think patient has associated interstitial lung disease or hypersensitivity pneumonitis. Medical record in fact received from PCP but not from Dr. Herbert. On IV Levaquin plus Flagyl. Speech/swallow evaluation and management to continue. Started on 60 every 6 hours and decrease Solu-Medrol 40 mg IV every 8 hourly. ABG reported pH 7.4, PCO2 33/PO2 79 on 9 L of high flow oxygen. ABG suggestive of severe hypoxia with high hiatal gradient and respiratory alkalosis. Patient has hypokalemia and is being replaced. Discussed with Dr. Herbert and he saw the patient. Patient has scheduled for bronchoscopy but was canceled. Patient has acute kidney injury, probably from sepsis/prerenal on CKD stage III secondary to solitary kidney. Mild increase in creatinine from 1.17-1.49. BUN elevated probably from Lasix. Lasix is discontinued. I have discussed my assessment with DIRECTOR MULTIMEDIAChristina and orders have been reviewed. Code Visit Inpatient E&M: 79480 [facility] Hosp L3
[2019-02-13] MEDS: Acetaminophen 325 MG Tablet 650 MG PO (20:31)
[2019-02-13] MEDS: Montelukast 10 MG Tablet PO (20:35)
[2019-02-13] MEDS: levoFLOXacin IV 750 MG/150 ML BAG 100 MG IV (20:35)
[2019-02-13] MEDS: Atorvastatin Calcium 10 MG Tablet PO (22:21)
[2019-02-13] MEDS: 0.9% NaCl Peripheral Flush Adult/Peds IV (22:22)
[2019-02-14] VITALS (14 sets, daily range): BP systolic 91–109; BP diastolic 47–64; PULSE 74–85; RESP 16–22; TEMP 36.4–36.6; O2SAT 96–99
[2019-02-14 05:58] LABS: Hematocrit 35.5 % (37-47); Mean Corpuscular Hgb 28.4 pg (27.0-32.0); Mean Corpuscular Volume 91.5 fL (81-99); Mean Platelet Vol. 10.5 fl (6.2-12.0); Platelet Count 489 K/mm3 (150-450); RBC Distribution Width CV 15.6 % (11.6-14.6); RBC Distribution Width SD 51.4 fl (35.1-43.9); Red Blood Count 3.88 M/mm3 (4.2-5.4); Scan Indicated on CBC? Y/N NO; White Blood Count 25.2 K/mm3 (4.4-11.0)
[2019-02-14] MEDS: 0.9% NaCl Peripheral Flush Adult/Peds IV ×2 (05:59→21:19)
[2019-02-14 06:13] LABS: Anion Gap 10 (5-15); BUN 42 mg/dL (7-18); BUN/Creat Ratio 27.3 RATIO (10-20); Calcium,Total 8.8 mg/dL (8.5-10.1); Chloride 111 mmol/L (98-107); Creatinine, Serum 1.54 mg/dL (0.55-1.02); EST Glomerular Filtration Rate 37 mL/min (>60); Est Glom Filt Rate - Afr Amer 44 mL/min (>60); Estimated Creatinine Clearance 38.25 ml/min; Glucose 167 mg/dL (74-106); Magnesium 2.4 mg/dL (1.6-2.6); Potassium 3.8 mmol/L (3.5-5.1); Sodium Level 143 mmol/L (136-145)
[2019-02-14] MEDS: Ipratropium/Albuterol Sulfate 3 ML AMPUL.NEB INHALATION ×3 (07:13→19:36)
[2019-02-14] MEDS: Aspirin E.C. 81 MG Tablet PO (07:37)
[2019-02-14] MEDS: Iron Polysaccharide Complex 150 MG CAPSULE PO (07:38)
[2019-02-14] MEDS: Propranolol LA 80 MG Capsule PO (09:50)
[2019-02-14] MEDS: Sertraline 100 MG Tablet PO (09:50)
[2019-02-14] MEDS: guaiFENesin 1,200 MG Tablet 1200 MG PO (09:50)
[2019-02-14] MEDS: busPIRone 15 MG TABLET PO ×2 (09:50→21:17)
[2019-02-14] MEDS: Pantoprazole Sodium 40 MG Tablet PO (09:50)
[2019-02-14] MEDS: Enoxaparin 40 MG/0.4 ML Syringe SC (10:24)
--- NOTE | 2019-02-14 12:56 | NURSING ---
Student nurse charting reviewed.
--- NOTE | 2019-02-14 14:15 | PN_ITS ---
<Christina Ferreira - Last Filed: 02/14/19 14:15> Patient Problems: Active and Suspected Problems (Last Reviewed 09/17/18 @ 13:38 by Shannan Sepulveda) Malaise (Acute) Low pulse oximetry (Acute) Subjective: Patient seen and examined. She reports continued improvement in breathing. States she ambulated the hallway without significant shortness of breath. Her diet was advanced per speech therapy, she reports she is pleased with this. - Physical Exam General: Alert, Oriented x3, Cooperative HEENT: Atraumatic, PERRLA, EOMI, Normocephalic Oral: Moist Mucosa Neck: Supple, No JVD, Negative Carotid Bruits Lungs: Clear to auscultation, Diminished Cardiovascular: Regular rate, Regular Rhythm, Normal S1, Normal S2, No murmurs Abdomen: Bowel Sounds Present, Soft, Non Tender, Non-Distended Extremities: No clubbing, No cyanosis, No edema, Capillary Refill Less than 3 Seconds Skin: No rashes, No breakdown Musculoskeletal: No Tenderness to Palpation of Joints or Extremities Neurological: Cranial nerves II-XII grossly intact, Neuro grossly intact Psych/Mental Status: Normal Affect, Appropriate Vital Signs Temp Pulse Resp BP Pulse Ox 97.5 F L 81 16 109/56 L 98 02/14/19 11:58 02/14/19 12:50 02/14/19 11:58 02/14/19 11:58 02/14/19 11:58 Oxygen Flow Rate (L/min) 6 Oxygen Delivery Method Nasal Cannula Weight: 147 lb 4.301 oz Body Mass Index (BMI) 23.1 Intake and Output for Last 24 Hours 02/12/19 02/13/19 02/14/19 23:59 23:59 23:59 Intake Total 1380 / 1380 960 / 960 920 / 920 Output Total 1100 / 1100 300 / 300 Balance 280 / 280 660 / 660 920 / 920 Microbiology Past 72 Hours 02/13/19 20:25 Respiratory Culture - Preliminary Sputum, Expectorated/Coughed Beta hemolytic organism Laboratory Tests Past 24 Hrs 02/14/19 02/14/19 05:40 05:40 WBC 25.2 H RBC 3.88 L Hgb 11.0 L Hct 35.5 L MCV 91.5 MCH 28.4 MCHC 31.0 L RDW 15.6 H RDW Differential 51.4 H Plt Count 489 H MPV 10.5 Sodium 143 Potassium 3.8 Chloride 111 H Carbon Dioxide 22.0 Anion Gap 10 BUN 42 H Creatinine 1.54 H Estim Creat Clear Calc 38.25 Est GFR (MDRD) Af Amer 44 L Est GFR (MDRD) Non-Af 37 L BUN/Creatinine Ratio 27.3 H Glucose 167 H Calcium 8.8 Magnesium 2.4 Medical Necessity - Tobacco Use Smoking Status: Former smoker Tobacco Use: Non-smoker Assessment/Plan All Active Problems (Last Reviewed 09/17/18 @ 13:38 by Shannan Sepulveda) Malaise (Acute) Low pulse oximetry (Acute) Chest pain, precordial (Acute) Chest pain, unspecified (Acute) 1. Acute hypoxic respiratory failure multifactorial secondary to interstitial pneumonia, suspected asthma exacerbation, and mild acute diastolic CHF-continue supplement oxygen to maintain O2 at or above 90%. Wean oxygen as tolerated. Walking pulse ox prior to discharge. Dr. Herbert consulted. Pulmonary medicine does not feel aspiration pneumonia is present. Aspiration PNA ruled out. 2. Interstitial pneumonia, dysphagia-ST consulted. Continue dietary modifications per speech therapy recommendations. Continue IV Levaquin and IV Flagyl. Urine for strep and Legionella negative. Respiratory panel negative. Send sputum for culture. Chest x-ray 02/11/19 showed interval worsening of the left greater than right multifocal airspace disease. Edema, noninfectious inflammatory pneumonitis possible? Repeat CXR pening. CT of chest obtained due to elevated d-dimer which was negative for PE. Diffuse patchy groundglass airspace disease noted bilaterally suggesting pulmonary edema. Pulmonary medicine consulted. Plan for possible bronchoscopy, unclear when/if this will occur. 3. Suspected asthma exacerbation versus noninfectious inflammatory pneumonitis- wheezing on assessment. Continue IV Solu-Medrol. Pulmonary consulted. Albuterol and DuoNeb aerosols. 4. Acute diastolic CHF-BNP mildly elevated. Chest x-ray admission with atypical pulmonary edema. Discontinue IV Lasix. Echocardiogram September 2018 with EF 65%. Repeat echocardiogram shows an EF of 55%, RVSP estimated to be 46 mmHg. 5. Hypokalemia/hypomagnesia-replaced per protocol. Resolved. Trend BMP. 6. History of CVA- continue aspirin, statin. PT/OT/ST. 7. Hypertension- stable, continue current regimen including propanolol. 8. Hyperlipidemia- continue statin. 9. Iron deficiency anemia-stable, trend cbc. 10. ALFONSO on Chronic kidney disease stage III secondary to solitary kidney-stable- ALFONSO 2/2 diuretic regimen. Lasix discontinued. Trend BMP. 11. Depression/anxiety-continue home regimen including buspirone, desipramine, sertraline. 12. MRDD 13. Falls/Debility- PT/OT. PT recommended additional therapy. DVT prophylaxis-Lovenox subcu This patient was seen by ERIKA Marsh under the supervision of Dr. Zaragoza. <Salvador Zaragoza - Last Filed: 02/14/19 15:52> Subjective: Patient shortness of breath is much better. Sitting in the chair. Oxygen requirement came down to 6 L/min. As mentioned above she ambulated without significant shortness of breath. - Physical Exam General: Alert, Oriented x3, Cooperative HEENT: Atraumatic, PERRLA, EOMI, Normocephalic Neck: Supple, No JVD, Negative Carotid Bruits Lungs: Diminished, Rhonchi, Wheezes Cardiovascular: Regular rate, Regular Rhythm, Normal S1, Normal S2, No murmurs Abdomen: Bowel Sounds Present, Soft, Non Tender, Non-Distended Extremities: No edema, Capillary Refill Less than 3 Seconds Skin: No rashes, No breakdown Musculoskeletal: No Tenderness to Palpation of Joints or Extremities Neurological: Cranial nerves II-XII grossly intact Psych/Mental Status: Normal Affect, Appropriate Vital Signs Temp Pulse Resp BP Pulse Ox 97.5 F L 85 16 109/56 L 98 02/14/19 11:58 02/14/19 15:15 02/14/19 15:15 02/14/19 11:58 02/14/19 14:00 Oxygen Flow Rate (L/min) 6 Oxygen Delivery Method Nasal Cannula Weight: 147 lb 4.301 oz Body Mass Index (BMI) 23.1 Intake and Output for Last 24 Hours 02/12/19 02/13/19 02/14/19 23:59 23:59 23:59 Intake Total 1380 / 1380 960 / 960 920 / 920 Output Total 1100 / 1100 300 / 300 Balance 280 / 280 660 / 660 920 / 920 Microbiology Past 72 Hours 02/13/19 20:25 Gram Stain - Final Sputum, Expectorated/Coughed Respiratory Culture - Preliminary Beta hemolytic organism Laboratory Tests Past 24 Hrs 02/14/19 02/14/19 05:40 05:40 WBC 25.2 H RBC 3.88 L Hgb 11.0 L Hct 35.5 L MCV 91.5 MCH 28.4 MCHC 31.0 L RDW 15.6 H RDW Differential 51.4 H Plt Count 489 H MPV 10.5 Sodium 143 Potassium 3.8 Chloride 111 H Carbon Dioxide 22.0 Anion Gap 10 BUN 42 H Creatinine 1.54 H Estim Creat Clear Calc 38.25 Est GFR (MDRD) Af Amer 44 L Est GFR (MDRD) Non-Af 37 L BUN/Creatinine Ratio 27.3 H Glucose 167 H Calcium 8.8 Magnesium 2.4 Assessment/Plan This patient was seen in conjunction with [employer], Christina. I have independently interviewed and examined the patient and reviewed pertinent history, examination findings, laboratory and plan of management. I have reviewed the note and agree with the documented findings with the few additional points. In brief, patient is admitted for shortness of breath and hypoxia. Patient also had progressive worsening of cough. Patient had elevated d-dimer and CT chest was done. CT chest shows bilateral diffuse groundglass patchy airspace disease reported as pulmonary edema. Clinically patient does not seem to have pulmonary edema. Patient BNP is 130 which is mildly elevated. Patient does not have history of coronary artery disease but has mild mitral valve prolapse. Patient does not have pedal edema or generalized swelling. Patient had echo in September 2018 reported as EF 65% with evidence of diastolic dysfunction. Normal RV size and systolic function. Normal right and left atria. Trivial MR. Mild TR, RVSP 39 mmHg. Discussed with the mother and patient was admitted in active hospital in 2014 for 3 months. There, she had E. coli bacteremia which was complicated with a stroke and had kidney failure for which she required nephrectomy. Patient has oropharyngeal dysphagia secondary to stroke since then and feels sometimes choking on swallowing big chunk of food. Patient is on modified dysphagia diet. BiPAP is relative contraindicated in view of possible worsening of aspiration/pneumonia unless absolutely needed. Patient has history of asthma. Patient had previous CT chest done in January 2018 was reported as interstitial septal thickening of the lung with groundglass opacities in the lower chest. His sputum culture is growing beta-hemolytic organism. CT chest shows prominent pulmonary trunk about 32 mm and RVSP 46 mmHg suggestive of pulmonary hypertension. I think patient has associated interstitial lung disease or hypersensitivity pneumonitis. Medical record in fact received from PCP but not from Dr. Herbert. On IV Levaquin plus Flagyl. Speech/swallow evaluation and management to continue. Started on 60 every 6 hours and decrease Solu-Medrol 40 mg IV every 8 hourly. ABG reported pH 7.4, PCO2 33/PO2 79 on 9 L of high flow oxygen. ABG suggestive of severe hypoxia with high hiatal gradient and respiratory alkalosis. Patient has hypokalemia and is being replaced. Discussed with Dr. Herbert and he saw the patient. Patient has scheduled for bronchoscopy but was canceled. Patient has acute kidney injury, probably from sepsis/prerenal on CKD stage III secondary to solitary kidney. Kidney function is stable for last 2 days, cr eatinine around 1.5. BUN 42. BUN elevated probably from Lasix. Lasix is discontinued. I have discussed my assessment with S[employer] OPERATORChristina and orders have been reviewed. Code Visit Inpatient E&M: [id number] Subs Hosp L3
[2019-02-14] MEDS: Montelukast 10 MG Tablet PO (21:17)
[2019-02-14] MEDS: Atorvastatin Calcium 10 MG Tablet PO (21:17)
[2019-02-14] MEDS: Acetaminophen 325 MG Tablet 650 MG PO (21:36)
[2019-02-15] VITALS (14 sets, daily range): BP systolic 95–125; BP diastolic 53–81; PULSE 74–95; RESP 16–26; TEMP 36.4–36.6; O2SAT 97–100
[2019-02-15] MEDS: 0.9% NaCl Peripheral Flush Adult/Peds IV ×3 (05:32→20:39)
[2019-02-15 06:42] LABS: Anion Gap 9 (5-15); BUN 41 mg/dL (7-18); BUN/Creat Ratio 28.1 RATIO (10-20); Calcium,Total 8.7 mg/dL (8.5-10.1); Chloride 111 mmol/L (98-107); Creatinine, Serum 1.46 mg/dL (0.55-1.02); EST Glomerular Filtration Rate 39 mL/min (>60); Est Glom Filt Rate - Afr Amer 47 mL/min (>60); Estimated Creatinine Clearance 40.35 ml/min; Glucose 152 mg/dL (74-106); Potassium 3.9 mmol/L (3.5-5.1); Sodium Level 141 mmol/L (136-145)
[2019-02-15] MEDS: Ipratropium/Albuterol Sulfate 3 ML AMPUL.NEB INHALATION ×3 (06:53→19:40)
[2019-02-15] MEDS: Aspirin E.C. 81 MG Tablet PO (07:54)
[2019-02-15] MEDS: Iron Polysaccharide Complex 150 MG CAPSULE PO (08:00)
[2019-02-15] MEDS: Sertraline 100 MG Tablet PO (10:40)
[2019-02-15] MEDS: Pantoprazole Sodium 40 MG Tablet PO (10:40)
[2019-02-15] MEDS: guaiFENesin 1,200 MG Tablet 1200 MG PO (10:41)
[2019-02-15] MEDS: busPIRone 15 MG TABLET PO ×2 (10:41→22:21)
[2019-02-15] MEDS: Propranolol LA 80 MG Capsule PO (10:41)
--- NOTE | 2019-02-15 15:07 | PCM.PROGNOTE ---
<Christina Ferreira - Last Filed: 02/15/19 15:26> Patient Problems: Active and Suspected Problems (Last Reviewed 09/17/18 @ 13:38 by Shannan Sepulveda) Malaise (Acute) Low pulse oximetry (Acute) Subjective: Patient seen and examined. Continues to feel improved. Denies significant shortness of breath. Denies fever, chills. Cough improved. - Physical Exam General: Alert, Oriented x3, Cooperative HEENT: Atraumatic, PERRLA, EOMI, Normocephalic Neck: Supple, No JVD, Negative Carotid Bruits Lungs: Clear to auscultation, Diminished Cardiovascular: Regular rate, Regular Rhythm, Normal S1, Normal S2, No murmurs Abdomen: Bowel Sounds Present, Soft, Non Tender, Non-Distended Extremities: No clubbing, No cyanosis, No edema, Capillary Refill Less than 3 Seconds Skin: No rashes, No breakdown Musculoskeletal: No Tenderness to Palpation of Joints or Extremities Neurological: Cranial nerves II-XII grossly intact, Neuro grossly intact Psych/Mental Status: Normal Affect, Appropriate Vital Signs Temp Pulse Resp BP Pulse Ox 97.8 F 80 22 H 95/53 L 99 02/15/19 09:40 02/15/19 13:18 02/15/19 11:07 02/15/19 09:40 02/15/19 10:00 Oxygen Flow Rate (L/min) 4 Oxygen Delivery Method Nasal Cannula Weight: 147 lb 4.301 oz Body Mass Index (BMI) 23.1 Intake and Output for Last 24 Hours 02/13/19 02/14/19 02/15/19 23:59 23:59 23:59 Intake Total 960 / 960 1880 / 1880 300 / 300 Output Total 300 / 300 Balance 660 / 660 1880 / 1880 300 / 300 Microbiology Past 72 Hours 02/13/19 20:25 Gram Stain - Final Sputum, Expectorated/Coughed Respiratory Culture - Preliminary Staphylococcus aureus Presumptive C albicans Laboratory Tests Past 24 Hrs 02/15/19 06:10 Sodium 141 Potassium 3.9 Chloride 111 H Carbon Dioxide 21.0 Anion Gap 9 BUN 41 H Creatinine 1.46 H Estim Creat Clear Calc 40.35 Est GFR (MDRD) Af Amer 47 L Est GFR (MDRD) Non-Af 39 L BUN/Creatinine Ratio 28.1 H Glucose 152 H Calcium 8.7 Medical Necessity - Tobacco Use Smoking Status: Former smoker Tobacco Use: Non-smoker Assessment/Plan All Active Problems (Last Reviewed 09/17/18 @ 13:38 by Shannan Sepulveda) Malaise (Acute) Low pulse oximetry (Acute) Chest pain, precordial (Acute) Chest pain, unspecified (Acute) 1. Acute hypoxic respiratory failure multifactorial secondary to interstitial pneumonia, suspected asthma exacerbation, and mild acute diastolic CHF-continue supplement oxygen to maintain O2 at or above 90%. Wean oxygen as tolerated. Walking pulse ox prior to discharge. Dr. Herbert consulted. Pulmonary medicine does not feel aspiration pneumonia is present. Aspiration PNA ruled out. 2. Interstitial pneumonia, dysphagia-ST consulted. Continue dietary modifications per speech therapy recommendations. Continue IV Levaquin and IV Flagyl. Urine for strep and Legionella negative. Respiratory panel negative. Send sputum for culture. Chest x-ray 02/11/19 showed interval worsening of the left greater than right multifocal airspace disease. Edema, noninfectious inflammatory pneumonitis possible? Repeat CXR 02/13/2019 showed improvement in the upper lung daily with residual airspace opacity at lung bases.. CT of chest obtained due to elevated d-dimer which was negative for PE. Diffuse patchy groundglass airspace disease noted bilaterally suggesting pulmonary edema. Pulmonary medicine consulted. Plan for possible bronchoscopy, unclear when/if this will occur. Repeat chest x-ray in a.m. and anticipate switching to oral antibiotic regimen. 3. Suspected asthma exacerbation versus noninfectious inflammatory pneumonitis-wheezing on assessment. Continue IV Solu-Medrol. Pulmonary consulted. Albuterol and DuoNeb aerosols. 4. Acute diastolic CHF-BNP mildly elevated. Chest x-ray admission with atypical pulmonary edema. Discontinue IV Lasix. Echocardiogram September 2018 with EF 65%. Repeat echocardiogram shows an EF of 55%, RVSP estimated to be 46 mmHg. 5. Hypokalemia/hypomagnesia-replaced per protocol. Resolved. Trend BMP. 6. History of CVA- continue aspirin, statin. PT/OT/ST. 7. Hypertension- stable, continue current regimen including propanolol. 8. Hyperlipidemia- continue statin. 9. Iron deficiency anemia-stable, trend cbc. 10. ALFONSO on Chronic kidney disease stage III secondary to solitary kidney-stable- ALFONSO 2/2 diuretic regimen. Lasix discontinued. Trend BMP. 11. Depression/anxiety-continue home regimen including buspirone, desipramine, sertraline. 12. MRDD 13. Falls/Debility- PT/OT. PT recommended additional therapy. DVT prophylaxis-Lovenox subcu This patient was seen by ERIKA Marsh under the supervision of Dr. Zaragoza. <Salvador Zaragoza - Last Filed: 02/15/19 16:24> Subjective: Patient shortness of breath is much better. Sitting on the chair. Cough is improved. - Physical Exam General: Alert, Oriented x3, Cooperative HEENT: Atraumatic, PERRLA, EOMI, Normocephalic Neck: Supple, No JVD, Negative Carotid Bruits Lungs: Clear to auscultation, Diminished, Wheezes - Mild occasional wheezing Cardiovascular: Regular rate, No murmurs Abdomen: Bowel Sounds Present, Soft, Non Tender, Non-Distended Extremities: No edema, Capillary Refill Less than 3 Seconds Skin: No rashes, No breakdown Musculoskeletal: No Tenderness to Palpation of Joints or Extremities, Arthritic Changes Neurological: Cranial nerves II-XII grossly intact, Neuro grossly intact Psych/Mental Status: Normal Affect, Appropriate Vital Signs Temp Pulse Resp BP Pulse Ox 97.8 F 80 22 H 95/53 L 99 02/15/19 09:40 02/15/19 13:18 02/15/19 11:07 02/15/19 09:40 02/15/19 14:00 Oxygen Flow Rate (L/min) 4 Oxygen Delivery Method Nasal Cannula Weight: 147 lb 4.301 oz Body Mass Index (BMI) 23.1 Intake and Output for Last 24 Hours 02/13/19 02/14/19 02/15/19 23:59 23:59 23:59 Intake Total 960 / 960 1880 / 1880 300 / 300 Output Total 300 / 300 Balance 660 / 660 1880 / 1880 300 / 300 Microbiology Past 72 Hours 02/13/19 20:25 Gram Stain - Final Sputum, Expectorated/Coughed Respiratory Culture - Preliminary Staphylococcus aureus Presumptive C albicans Laboratory Tests Past 24 Hrs 02/15/19 06:10 Sodium 141 Potassium 3.9 Chloride 111 H Carbon Dioxide 21.0 Anion Gap 9 BUN 41 H Creatinine 1.46 H Estim Creat Clear Calc 40.35 Est GFR (MDRD) Af Amer 47 L Est GFR (MDRD) Non-Af 39 L BUN/Creatinine Ratio 28.1 H Glucose 152 H Calcium 8.7 Assessment/Plan This patient was seen in conjunction with [employer], Christina. I have independently interviewed and examined the patient and reviewed pertinent history, examination findings, laboratory and plan of management. I have reviewed the note and agree with the documented findings with the few additional points. In brief, patient is admitted for shortness of breath and hypoxia. Patient also had progressive worsening of cough. Patient had elevated d-dimer and CT chest was done. CT chest shows bilateral diffuse groundglass patchy airspace disease reported as pulmonary edema. Clinically patient does not seem to have pulmonary edema. Patient BNP is 130 which is mildly elevated. Patient does not have history of coronary artery disease but has mild mitral valve prolapse. Patient does not have pedal edema or generalized swelling. Patient had echo in September 2018 reported as EF 65% with evidence of diastolic dysfunction. Normal RV size and systolic function. Normal right and left atria. Trivial MR. Mild TR, RVSP 39 mmHg. Discussed with the mother and patient was admitted in active hospital in 2014 for 3 months. There, she had E. coli bacteremia which was complicated with a stroke and had kidney failure for which she required nephrectomy. Patient has oropharyngeal dysphagia secondary to stroke since then and feels sometimes choking on swallowing big chunk of food. Patient is on modified dysphagia diet. Patient has history of asthma. Patient had previous CT chest done in January 2018 was reported as interstitial septal thickening of the lung with groundglass opacities in the lower chest. His sputum culture is growing beta-hemolytic organism. CT chest shows prominent pulmonary trunk about 32 mm and RVSP 46 mmHg suggestive of pulmonary hypertension. I think patient has associated interstitial lung disease or hypersensitivity pneumonitis. On IV Levaquin plus Flagyl. Speech/swallow evaluation and management to continue. Patient is started on Solu-Medrol and then transitioned to 40 mg prednisone daily. ABG reported pH 7.4, PCO2 33/PO2 79 on 9 L of high flow oxygen. ABG suggestive of severe hypoxia with high hiatal gradient and respiratory alkalosis. Patient has hypokalemia and is being replaced. Discussed with Dr. Herbert and he saw the patient. Patient has scheduled for bronchoscopy but was canceled. Patient has acute kidney injury, probably from sepsis/prerenal on CKD stage III secondary to solitary kidney. Kidney function is improving. BUN/creatinine 41/1.46 I have discussed my assessment with EVENT CO[employer] SAL[employer]Christina and orders have been reviewed. Sign out: Check with Dr. Herbert on 02/16/2019 regarding plan for bronchoscopy as it was canceled on last Saturday. Dissipate discharge in 1-2 days BUT check with Dr. Herbert before discharge. Code Visit Inpatient E&M: 67533 Subs Hosp L3
[2019-02-15] MEDS: levoFLOXacin IV 750 MG/150 ML BAG 100 MG IV (20:39)
[2019-02-15] MEDS: Montelukast 10 MG Tablet PO (20:40)
[2019-02-15] MEDS: Atorvastatin Calcium 10 MG Tablet PO (22:21)
[2019-02-16] VITALS (12 sets, daily range): BP systolic 95–121; BP diastolic 59–68; PULSE 75–88; RESP 16–24; TEMP 36.3–36.8; O2SAT 86–97
[2019-02-16] MEDS: 0.9% NaCl Peripheral Flush Adult/Peds IV (06:08)
--- NOTE | 2019-02-16 06:25 | RAD_ITS ---
STUDY: X-RAY CHEST REASON FOR EXAM: Female, 58 years old. Shortness of breath and hypoxia. TECHNIQUE: PA and lateral views of the chest. COMPARISON: Comparison is made with prior study dated February 13, 2019. FINDINGS: EKG or traversing. Stable increased interstitial markings at both lung bases with areas of confluence worse in the left lower lobe. Persistent elevation of the right hemidiaphragm. Blunting of the left costo phrenic angle. Normal size heart. Normal mediastinum and fritz. Normal visualized pulmonary arteries. Normal visualized aortic arch and descending thoracic aorta. There are degenerative changes of the visualized thoracic spine. Normal visualized ribs, clavicles, and shoulders. Surgical clips are seen in the epigastric region. RAD/Chest PA and Lateral IMPRESSION: Stable examination. Electronically Signed: Puneet Rajput, at 15:24 EDT , Service support ,
[2019-02-16 06:39] LABS: Anion Gap 7 (5-15); BUN 34 mg/dL (7-18); Calcium,Total 8.4 mg/dL (8.5-10.1); Chloride 111 mmol/L (98-107); Creatinine, Serum 1.31 mg/dL (0.55-1.02); EST Glomerular Filtration Rate 44 mL/min (>60); Est Glom Filt Rate - Afr Amer 53 mL/min (>60); Estimated Creatinine Clearance 44.97 ml/min; Glucose 93 mg/dL (74-106); Potassium 3.6 mmol/L (3.5-5.1); Sodium Level 141 mmol/L (136-145)
[2019-02-16] MEDS: Ipratropium/Albuterol Sulfate 3 ML AMPUL.NEB INHALATION ×2 (07:07→10:39)
--- NOTE | 2019-02-16 08:17 | PCM.PROGNOTE ---
Patient Problems: Active and Suspected Problems (Last Reviewed 09/17/18 @ 13:38 by Shannan Sepulveda) Malaise (Acute) Low pulse oximetry (Acute) - Physical Exam General: Alert, Oriented x3, Cooperative HEENT: Atraumatic, EOMI, Normocephalic Neck: Supple, No JVD, Negative Carotid Bruits Lungs: - - pt has rales at base. 5%, pt has no cough, no wheeze. no fx rub. good air entry Cardiovascular: Regular rate, No murmurs, No Ectopic Activity Abdomen: Bowel Sounds Present, Soft, Non Tender Extremities: No edema, Capillary Refill Less than 3 Seconds Skin: No rashes, No breakdown Musculoskeletal: No Tenderness to Palpation of Joints or Extremities Neurological: Cranial nerves II-XII grossly intact Psych/Mental Status: Normal Affect, Appropriate Vital Signs Temp Pulse Resp BP Pulse Ox 98.2 F 77 16 113/68 97 02/16/19 03:15 02/16/19 07:07 02/16/19 07:07 02/16/19 03:15 02/16/19 07:07 Oxygen Flow Rate (L/min) 3 Oxygen Delivery Method Nasal Cannula Weight: 66.8 kg Body Mass Index (BMI) 23.1 Intake and Output for Last 24 Hours 02/14/19 02/15/19 02/16/19 23:59 23:59 23:59 Intake Total 1880 / 1880 640 / 640 658 / 658 Balance 1880 / 1880 640 / 640 658 / 658 Microbiology Past 72 Hours 02/13/19 20:25 Gram Stain - Final Sputum, Expectorated/Coughed Respiratory Culture - Preliminary Staphylococcus aureus Presumptive C albicans Laboratory Tests Past 24 Hrs 02/16/19 06:04 Sodium 141 Potassium 3.6 Chloride 111 H Carbon Dioxide 23.0 Anion Gap 7 BUN 34 H Creatinine 1.31 H Estim Creat Clear Calc 44.97 Est GFR (MDRD) Af Amer 53 L Est GFR (MDRD) Non-Af 44 L BUN/Creatinine Ratio 26.0 H Glucose 93 Calcium 8.4 L Medical Necessity - Tobacco Use Smoking Status: Former smoker Tobacco Use: Non-smoker Assessment/Plan All Active Problems (Last Reviewed 09/17/18 @ 13:38 by Shannan Sepulveda) Malaise (Acute) Low pulse oximetry (Acute) Chest pain, precordial (Acute) Chest pain, unspecified (Acute) asp pneumonia, interst dis, responsive to steroids. pt had dramatic response to steroids and abx. now at 3 liter. pt has no fever. no sputum suggest: d/c w/ oxygen and pred at 30 complete abx for 7 d course. cont w/ asp precautions ambulate w/ PT f/u 1 wk in office. discussed w/ in house doc.
[2019-02-16] MEDS: Iron Polysaccharide Complex 150 MG CAPSULE PO (08:57)
[2019-02-16] MEDS: Aspirin E.C. 81 MG Tablet PO (08:57)
[2019-02-16] MEDS: busPIRone 15 MG TABLET PO (08:58)
[2019-02-16] MEDS: Enoxaparin 40 MG/0.4 ML Syringe SC (08:58)
[2019-02-16] MEDS: Propranolol LA 80 MG Capsule PO (08:58)
[2019-02-16] MEDS: Pantoprazole Sodium 40 MG Tablet PO (08:59)
[2019-02-16] MEDS: Sertraline 100 MG Tablet PO (08:59)
[2019-02-16] MEDS: predniSONE 20 MG Tablet 40 MG PO (09:00)
--- NOTE | 2019-02-16 10:24 | PCM.DC ---
- Discharge Diagnoses Current Active Problems: Current Active and Chronic Problems (Last Reviewed 09/17/18 @ 13:38 by Shannan Sepulveda) You will use the following diet at home:: No restrictions Your food should be the consistency of: Mechanical soft (ground) Your liquids should be the consistency of: [place] Thick Discharge Activity: Return to Normal Activity Call your doctor if you observe: Fever of 101 or Higher, Shortness of breath, Dizziness, Fainting spells, Chest pain Allergies/Adverse Reactions: Allergies hydrocodone [From Vicodin] Allergy (Severe, Verified 02/09/19 20:05) Itching acetaminophen [From Percocet] Adverse Reaction (Unknown, Verified 02/09/19 15:14) Unknow meperidine [From Demerol] Adverse Reaction (Unknown, Verified 02/09/19 15:14) Unknown oxycodone [From Percocet] Adverse Reaction (Unknown, Verified 02/09/19 15:14) Unknow Penicillins Adverse Reaction (Unknown, Verified 02/09/19 15:14) Unknown sumatriptan [From Imitrex] Adverse Reaction (Unknown, Verified 02/09/19 15:14) Unknown Medications to take at Discharge ergocalciferol (vitamin D2) 50,000 unit capsule 50,000 unit PO QMONTH 10/28/17 [id number] 6,000-19,000-30,000 unit capsule,delayed rel 2 cap PO TID 10/28/17 omeprazole 40 mg capsule,delayed release 40 mg PO QDAY 10/28/17 propranolol ER 80 mg capsule,24 hr,extended release 80 mg PO DAILY cap 10/28/17 albuterol sulfate HFA 90 mcg/actuation aerosol inhaler 1 puff INHALATION Q6H PRN 09/16/18 aspirin 81 mg tablet,delayed release 81 mg PO DAILY 09/16/18 atorvastatin 10 mg tablet 10 mg PO DAILY 09/16/18 montelukast 10 mg tablet 10 mg PO QPM 09/16/18 buspirone 15 mg tablet 15 mg PO BID tab 09/17/18 desipramine 100 mg tablet 100 mg PO QHS 09/17/18 Sertraline HCl [Zoloft] 100 mg PO DAILY 02/09/19 Iron Polysaccharide Complex [Ferrex 150] 150 mg PO DAILYCM #30 capsule 02/16/19 Prednisone 30 mg PO DAILY #90 tablet 02/16/19 The following prescriptions were given: Iron Polysaccharide Complex [Ferrex 150] 150 mg PO DAILYCM #30 capsule Prednisone 30 mg PO DAILY #90 tablet Primary Care Physician: Estefania Casper MD [Primary Care Provider] - Please follow up with your Primary Care Physician in: 1 Week Test Results: Test results from this visit will be discussed in further detail at your follow-up appointment, if applicable. Please Follow Up With: Matt Herbert MD When: 1 Week Please Follow Up With: Reji Fatima MD When: As scheduled Proposed Discharge Date: 02/16/19
--- NOTE | 2019-02-16 10:28 | DCINST_ITS ---
- Discharge Diagnoses Current Active Problems: Current Active and Chronic Problems (Last Reviewed 09/17/18 @ 13:38 by Shannan eSpulveda) You will use the following diet at home:: No restrictions Your food should be the consistency of: Mechanical soft (ground) Your liquids should be the consistency of: [place] Thick Discharge Activity: Return to Normal Activity Call your doctor if you observe: Fever of 101 or Higher, Shortness of breath, Dizziness, Fainting spells, Chest pain Allergies/Adverse Reactions: Allergies hydrocodone [From Vicodin] Allergy (Severe, Verified 02/09/19 20:05) Itching acetaminophen [From Percocet] Adverse Reaction (Unknown, Verified 02/09/19 15:14) Unknow meperidine [From Demerol] Adverse Reaction (Unknown, Verified 02/09/19 15:14) Unknown oxycodone [From Percocet] Adverse Reaction (Unknown, Verified 02/09/19 15:14) Unknow Penicillins Adverse Reaction (Unknown, Verified 02/09/19 15:14) Unknown sumatriptan [From Imitrex] Adverse Reaction (Unknown, Verified 02/09/19 15:14) Unknown Medications to take at Discharge ergocalciferol (vitamin D2) 50,000 unit capsule 50,000 unit PO QMONTH 10/28/17 [id number] 6,000-19,000-30,000 unit capsule,delayed rel 2 cap PO TID 10/28/17 omeprazole 40 mg capsule,delayed release 40 mg PO QDAY 10/28/17 propranolol ER 80 mg capsule,24 hr,extended release 80 mg PO DAILY cap 10/28/17 albuterol sulfate HFA 90 mcg/actuation aerosol inhaler 1 puff INHALATION Q6H PRN 09/16/18 aspirin 81 mg tablet,delayed release 81 mg PO DAILY 09/16/18 atorvastatin 10 mg tablet 10 mg PO DAILY 09/16/18 montelukast 10 mg tablet 10 mg PO QPM 09/16/18 buspirone 15 mg tablet 15 mg PO BID tab 09/17/18 desipramine 100 mg tablet 100 mg PO QHS 09/17/18 Sertraline HCl [Zoloft] 100 mg PO DAILY 02/09/19 Iron Polysaccharide Complex [Ferrex 150] 150 mg PO DAILYCM #30 capsule 02/16/19 Prednisone 30 mg PO DAILY #90 tablet 02/16/19 The following prescriptions were given: Iron Polysaccharide Complex [Ferrex 150] 150 mg PO DAILYCM #30 capsule Prednisone 30 mg PO DAILY #90 tablet Primary Care Physician: Estefania Casper MD [Primary Care Provider] - Please follow up with your Primary Care Physician in: 1 Week Test Results: Test results from this visit will be discussed in further detail at your follow- up appointment, if applicable. Please Follow Up With: Matt Herbert MD When: 1 Week Please Follow Up With: Reji Fatima MD When: As scheduled Proposed Discharge Date: 02/16/19
--- NOTE | 2019-02-16 11:31 | NURSING ---
pt's mother in at bedside. pt on ra and was 86% at rest. o2 back on at 2l and was up to 93% in 2 minutes. cm aware for home o2 set up
--- NOTE | 2019-02-16 11:55 | DS.PCM_ITS ---
<Christina Ferreira - Last Filed: 02/16/19 12:00> Discharge Date and Diagnosis Date of Admission: 02/09/19 Date of Discharge: 02/16/19 - Primary Discharge Diagnosis Active and Suspected Problems (Last Reviewed 09/17/18 @ 13:38 by Shannan Sepulveda) 1. Acute hypoxic respiratory failure multifactorial secondary to interstitial pneumonia with possible aspiration, suspected asthma exacerbation, and mild acute diastolic CHF 2. Interstitial pneumonia, dysphagia with possible aspiration 3. Suspected asthma exacerbation versus noninfectious inflammatory pneumonitis 4. Acute diastolic CHF 5. Hypokalemia/hypomagnesia 6. History of CVA 7. Hypertension 8. Hyperlipidemia 9. Iron deficiency anemia 10. ALFONSO on Chronic kidney disease stage III secondary to solitary kidney 11. Depression/anxiety 12. MRDD 13. Falls/Debility - Secondary Discharge Diagnosis Chronic Problems (Last Reviewed 09/17/18 @ 13:38 by Shannan Sepulveda) Palpitations (Chronic) Cardiac murmur (Chronic) Dyspnea (Chronic) Nonrheumatic mitral valve prolapse (Chronic) Long-term use of high-risk medication (Chronic) Hyperlipidemia (Chronic) Other secondary pulmonary hypertension (Chronic) Hospital Course and Treatment Imaging Results: 02/16/19 06:25 CXR [Chest PA and Lateral] [RAD] AM (NON MEDS) Dr. Herbert- Pulmonary medicine Operations: None Procedures: 2-D Echocardiogram Summary of Care Provided: The patient is a 58 year old F admitted 02/09/2019 due to low pulse oximetry and malaise. 1. Acute hypoxic respiratory failure multifactorial secondary to interstitial pneumonia with possible aspiration, suspected asthma exacerbation, and mild acute diastolic CHF-patient will require supplemental oxygen at discharge. She is ambulatory in the home. Continue supplement oxygen to maintain O2 at or above 90%. 2. Interstitial pneumonia, dysphagia with possible aspiration-ST consulted. Continue dietary modifications per speech therapy recommendations with mechanical soft texture and nectar thick liquids. Patient received IV Levaquin and IV Flagyl with a total of 7 days of IV antibiotic therapy. No further antibiotics necessary at discharge. Urine for strep and Legionella negative. Respiratory panel negative. Sputum culture shows staph aureus and presumptive C albicans. Suspect colonization, patient clinically improved. Chest x-ray 02/11/19 showed interval worsening of the left greater than right multifocal airspace disease. Edema, noninfectious inflammatory pneumonitis possible? Repe at CXR 02/13/2019 showed improvement in the upper lung daily with residual airspace opacity at lung bases.. CT of chest obtained due to elevated d-dimer which was negative for PE. Diffuse patchy groundglass airspace disease noted bilaterally suggesting pulmonary edema. Patient follows with Dr. Herbert. She will continue prednisone 30mg daily until further advised by pulmonary medicine. She continues to require supplemental oxygen at discharge, she is ambulatory in the home. Continue supplement oxygen to maintain O2 at or above 90%. 3. Suspected asthma exacerbation versus noninfectious inflammatory pneumonitis- Pulmonary consulted. Transition to oral prednisone 30 mg daily. Follow-up with pulmonary medicine in 1 week as noted above. 4. Acute diastolic CHF-BNP mildly elevated. Chest x-ray admission with atypical pulmonary edema. Discontinue IV Lasix. Echocardiogram September 2018 with EF 65%. Repeat echocardiogram shows an EF of 55%, RVSP estimated to be 46 mmHg. 5. Hypokalemia/hypomagnesia-replaced per protocol. Resolved. Recommend repeat BMP as outpatient with primary care physician. 6. History of CVA- continue aspirin, statin. 7. Hypertension- stable, continue current regimen including propanolol. 8. Hyperlipidemia- continue statin. 9. Iron deficiency anemia-stable. 10. ALFONSO on Chronic kidney disease stage III secondary to solitary kidney-stable- ALFONSO 2/2 diuretic regimen. Lasix discontinued. Now stable. Recommend repeat BMP as outpatient by primary care physician. 11. Depression/anxiety-continue home regimen including buspirone, desipramine, sertraline. 12. MRDD 13. Falls/Debility- PT recommended additional therapy. Patient and patient's mother decline at this time. General: Alert, Oriented x3, Cooperative HEENT: Atraumatic, PERRLA, EOMI, Normocephalic Neck: Supple, No JVD, Negative Carotid Bruits Lungs: Clear to auscultation, Diminished Cardiovascular: Regular rate, Regular Rhythm, Normal S1, Normal S2, No murmurs Abdomen: Bowel Sounds Present, Soft, Non Tender, Non-Distended Extremities: No clubbing, No cyanosis, No edema, Capillary Refill Less than 3 Seconds Skin: No rashes, No breakdown Musculoskeletal: No Tenderness to Palpation of Joints or Extremities Neurological: Cranial nerves II-XII grossly intact, Neuro grossly intact Psych/Mental Status: Normal Affect, Appropriate Patient seen and examined prior to discharge. Physical assessment as noted above. Patient is stable for discharge with follow up recommendations as noted above. This patient was seen by ERIKA Marsh under the supervision of Dr. Lawton. - Physical Exam Vital Signs Temp Pulse Resp BP Pulse Ox 97.6 F L 88 24 H 107/61 94 02/16/19 10:55 02/16/19 10:55 02/16/19 10:55 02/16/19 10:55 02/16/19 10:55 Oxygen Flow Rate (L/min) 3 Oxygen Delivery Method Nasal Cannula Weight: 147 lb 4.301 oz Body Mass Index (BMI) 23.1 Intake and Output for Last 24 Hours 02/14/19 02/15/19 02/16/19 23:59 23:59 23:59 Intake Total 1880 / 1880 640 / 640 658 / 658 Balance 1880 / 1880 640 / 640 658 / 658 Microbiology Past 72 Hours 02/13/19 20:25 Gram Stain - Final Sputum, Expectorated/Coughed Respiratory Culture - Final Staphylococcus aureus Presumptive C albicans Laboratory Tests Past 24 Hrs 02/16/19 06:04 Sodium 141 Potassium 3.6 Chloride 111 H Carbon Dioxide 23.0 Anion Gap 7 BUN 34 H Creatinine 1.31 H Estim Creat Clear Calc 44.97 Est GFR (MDRD) Af Amer 53 L Est GFR (MDRD) Non-Af 44 L BUN/Creatinine Ratio 26.0 H Glucose 93 Calcium 8.4 L Discharge Diet: No Restrictions Discharge Activity: Return to Normal Activity Call your doctor if you observe: Fever of 101 or Higher, Shortness of breath, Dizziness, Fainting spells, Chest pain Home Medications: Medications to take at Discharge ergocalciferol (vitamin D2) 50,000 unit capsule 50,000 unit PO QMONTH 10/28/17 [id number] 6,000-19,000-30,000 unit capsule,delayed rel 2 cap PO TID 10/28/17 omeprazole 40 mg capsule,delayed release 40 mg PO QDAY 10/28/17 propranolol ER 80 mg capsule,24 hr,extended release 80 mg PO DAILY cap 10/28/17 albuterol sulfate HFA 90 mcg/actuation aerosol inhaler 1 puff INHALATION Q6H PRN 09/16/18 aspirin 81 mg tablet,delayed release 81 mg PO DAILY 09/16/18 atorvastatin 10 mg tablet 10 mg PO DAILY 09/16/18 montelukast 10 mg tablet 10 mg PO QPM 09/16/18 buspirone 15 mg tablet 15 mg PO BID tab 09/17/18 desipramine 100 mg tablet 100 mg PO QHS 09/17/18 Sertraline HCl [Zoloft] 100 mg PO DAILY 02/09/19 Iron Polysaccharide Complex [Ferrex 150] 150 mg PO DAILYCM #30 capsule 02/16/19 Prednisone 30 mg PO DAILY #90 tablet 02/16/19 Following Prescrptions Were Given to Patient: Iron Polysaccharide Complex [Ferrex 150] 150 mg PO DAILYCM #30 capsule Prednisone 30 mg PO DAILY #90 tablet Primary Care Physician: Estefania Casper MD [Primary Care Provider] - Please follow up with your Primary Care Physician in: 1 Week Please Follow Up With: Matt Herbert MD When: 1 Week Please Follow Up With: Reji Fatima MD When: As scheduled Disposition: Home Minutes spent on discharge:: 35 Patient Condition:: Stable Medical Necessity - Tobacco Use Smoking Status: Former smoker Tobacco Use: Non-smoker Meaningful Use Info Meaningful Use Diagnoses (Choose all that apply): CHF - CHF YAMILKA/ARB ordered at discharge?: No Reason YAMILKA/ARB not ordered?: Worsening renal dysfunctn Documented LVEF (%): 55 <Zuri Lawton - Last Filed: 02/16/19 18:03> Discharge Date and Diagnosis - Secondary Discharge Diagnosis Chronic Problems (Last Reviewed 09/17/18 @ 13:38 by Shannan Sepulveda) Palpitations (Chronic) Cardiac murmur (Chronic) Dyspnea (Chronic) Nonrheumatic mitral valve prolapse (Chronic) Long-term use of high-risk medication (Chronic) Hyperlipidemia (Chronic) Other secondary pulmonary hypertension (Chronic) Hospital Course and Treatment Summary of Care Provided: This patient was seen in conjunction with Christina Ferreira NP. I have independently interviewed and examined the patient and reviewed pertinent historical, laboratory, and other data. Please refer to her note for patient's presentation, findings, and recommendations. 58-year-old female with past medical history of CVA, hypertension hyperlipidemia, admitted with hypoxia and managed as acute hypoxic respiratory failure secondary to interstitial pneumonia with possible aspiration pneumonia, asthma exacerbation, mild acute diastolic CHF. Patient follows with Dr. Skyler husain. She was managed on IV antibiotics, IV diuretics, oxygen. Electrolyte imbalances were replaced. Imaging was negative for acute PE. Chest x-ray showed worsening multifocal airspace disease worse on the left than right. Patient gradually continue to improve, was discharged home on prednisone 30 mg to follow-up with Dr. Herbert Subjective: On the day of discharge, patient had no new complaints. Denies any fever or chills. Objective: Physical Exam General: Alert, Oriented x3, Cooperative HEENT: Atraumatic, PERRLA, EOMI, Normocephalic Neck: Supple, No JVD, Negative Carotid Bruits Lungs: Clear to auscultation, Diminished Cardiovascular: Regular rate, Regular Rhythm, Normal S1, Normal S2, No murmurs Abdomen: Bowel Sounds Present, Soft, Non Tender, Non-Distended Extremities: No clubbing, No cyanosis, No edema, Capillary Refill Less than 3 Seconds Skin: No rashes, No breakdown Musculoskeletal: No Tenderness to Palpation of Joints or Extremities Neurological: Cranial nerves II-XII grossly intact, Neuro grossly intact Psych/Mental Status: Normal Affect, Appropriate - Physical Exam Vital Signs Temp Pulse Resp BP Pulse Ox 97.5 F L 86 24 H 121/68 H 95 02/16/19 15:45 02/16/19 15:45 02/16/19 15:45 02/16/19 15:45 02/16/19 15:45 Oxygen Flow Rate (L/min) 2 Oxygen Delivery Method Nasal Cannula Weight: 66.8 kg Body Mass Index (BMI) 23.1 Intake and Output for Last 24 Hours 02/14/19 02/15/19 02/16/19 23:59 23:59 23:59 Intake Total 1879 / 0 640 / 640 658 / 658 Balance 1879 / 1880 640 / 640 658 / 658 Microbiology Past 72 Hours 02/13/19 20:25 Gram Stain - Final Sputum, Expectorated/Coughed Respiratory Culture - Final Staphylococcus aureus Presumptive C albicans Laboratory Tests Past 24 Hrs 02/16/19 06:04 Sodium 141 Potassium 3.6 Chloride 111 H Carbon Dioxide 23.0 Anion Gap 7 BUN 34 H Creatinine 1.31 H Estim Creat Clear Calc 44.97 Est GFR (MDRD) Af Amer 53 L Est GFR (MDRD) Non-Af 44 L BUN/Creatinine Ratio 26.0 H Glucose 93 Calcium 8.4 L Code Visit Inpatient E&M: 22170 Disch Hosp
--- NOTE | 2019-02-16 11:57 | CASEMGMT ---
Per Tish GABRIEL, pt did qualify for home oxygen at this time. Pt/mother state no preference for DME company at this time and referral faxed to [facility] at this time. Pt's mom states would like home oxygen set up at her home at this time as she will be taking care of pt at discharge. This RN AACCIA offered HHC and OP therapy to pt/mother at this time and they decline both at this time. Call to Nery at [facility] and she is aware of referral at this time. Jaime GABRIEL CM
--- NOTE | 2019-02-17 16:04 | CASEMGMT ---
RN CM Assessment. DC Date: 02/16/19 DC Disposition: Home LACE/Strata: 09/20 Intro role of CM to patient's mother who is with pt. Pt was sleeping. mother was able to tell CM that f/u appointment is with Dr. Casper on and Dr. Herbert next week. Pt has prescriptions and home oxygen and no questions. No care suggestions were given. Sunny GALAVIZ RN ACM
== END 2019-02-16 16:28 | disposition home or self-care (01) | DRG 133 ==
LOC: ED 15:45 → PCU 19:12
PROVIDERS: Internal Medicine; Nurse Practitioner Family; Physician Assistant; Admitting Provider Internal Medicine; Emergency Provider Emergency Medicine; Family Provider Internal Medicine; PCP Internal Medicine; Referring Provider Internal Medicine; Visit Provider Internal Medicine
DX: J96.01 Acute respiratory failure with hypoxia (principal); J84.9 Interstitial pulmonary disease, unspecified; N17.9 Acute kidney failure, unspecified; E87.6 Hypokalemia; E83.42 Hypomagnesemia; I50.31 Acute diastolic (congestive) heart failure; I27.20 Pulmonary hypertension, unspecified; J45.901 Unspecified asthma with (acute) exacerbation; E78.5 Hyperlipidemia, unspecified; I34.1 Nonrheumatic mitral (valve) prolapse; R53.81 Other malaise; I69.391 Dysphagia following cerebral infarction; F32.9 Major depressive disorder, single episode, unspecified; R13.12 Dysphagia, oropharyngeal phase; F41.9 Anxiety disorder, unspecified; D50.9 Iron deficiency anemia, unspecified; I13.0 Hypertensive heart and chronic kidney disease with heart failure and stage 1 through stage 4 chronic kidney disease, or unspecified chronic kidney disease; N18.3 Chronic kidney disease, stage 3 (moderate); Z90.5 Acquired absence of kidney; R29.6 Repeated falls; Z87.891 Personal history of nicotine dependence; J69.0 Pneumonitis due to inhalation of food and vomit
CPT/HCPCS: 36415; 36600; 71045; 71046; 71275; 80048; 80076; 82803; 82962; 83540; 83550; 83690; 83735; 83880; 84100; 84484; 85025; 85027; 85379; 85610; 85730; 87070; 87077; 87186; 87205; 87449; 87633; 87804; 92526; 92610; 93005; 93306; 94640; 94667; 94668; 97110; 97116; 97162; 97166; 97530; 97535; 97802; 99285; J1756; J7030; J7040; Q9967; A4216; J1940

== ENCOUNTER → 2019-02-23 | Outpatient (CLI) | payer MEDICAID, SELFPAY ==
[2019-02-13 06:40] VITALS: BMI 23.1
--- NOTE | 2019-02-23 16:00 | RAD_ITS ---
STUDY: X-RAY CHEST REASON FOR EXAM: Female, 58 years old. Dyspnea TECHNIQUE: 1 view COMPARISON: February 16, 2019 FINDINGS: There are still increased interstitial markings in both lung bases. Numerous bronchi with also seen centrally. A few platelike atelectatic changes in the left base. The heart is normal in size.. Normal visualized thoracic spine. Normal visualized ribs, clavicles, and shoulders. There is no demonstrated abnormality of the visualized soft tissue structures of the upper abdomen. RAD/Chest PA and Lateral IMPRESSION: Chronic interstitial changes in both lung bases and platelike atelectatic changes in the left base. There are also changes of chronic bronchitis. Electronically Signed: Logan Jackson MD at 0:45 EDT Tel , Service support ,
== END | disposition home or self-care (01) ==
LOC: MTRAD 15:59
PROVIDERS: Family Provider Internal Medicine; PCP Internal Medicine; Referring Provider Internal Medicine Pulmonary Disease; Visit Provider Internal Medicine Pulmonary Disease
DX: R06.00 Dyspnea, unspecified (principal); R09.02 Hypoxemia
CPT/HCPCS: 71046

== ENCOUNTER → 2019-04-08 11:15 | Outpatient (CLI) | payer MEDICAID, SELFPAY ==
[2019-02-13 06:40] VITALS: BMI 23.1
--- NOTE | 2019-04-08 11:19 | RAD_ITS ---
STUDY: X-RAY CHEST REASON FOR EXAM: Female, 58 years old. FOLLOW UP CRYPTOGENIC ORG PNEUMONIA TECHNIQUE: Single AP portable view of the chest. COMPARISON: 02/23/2019 FINDINGS: There are interstitial fibrotic changes of the lungs. There is no demonstrated pleural abnormality. Normal size heart. Normal mediastinum and fritz. Normal visualized pulmonary arteries. Normal visualized aortic arch and descending thoracic aorta. Normal visualized thoracic spine. Normal visualized ribs, clavicles, and shoulders. There is no demonstrated abnormality of the visualized soft tissue structures of the upper abdomen. RAD/Chest PA and Lateral IMPRESSION: Chronic interstitial lung disease more prominent in lung bases. There has been no significant change since the previous study. Electronically Signed: Dorie New, at 7:35 EDT Tel , Service support ,
[2019-04-08 12:39] LABS: Hematocrit 40.8 % (37-47); Hemoglobin 12.6 g/dl (12.0-15.0); Mean Corp Hgb Conc 30.9 g/gl (32-36); Mean Corpuscular Hgb 28.8 pg (27.0-32.0); Mean Corpuscular Volume 93.2 fL (81-99); Mean Platelet Vol. 10.5 fl (6.2-12.0); Platelet Count 250 K/mm3 (150-450); RBC Distribution Width CV 15.9 % (11.6-14.6); RBC Distribution Width SD 51.8 fl (35.1-43.9); Red Blood Count 4.38 M/mm3 (4.2-5.4)
[2019-04-08 12:40] LABS: Erythrocyte Sedimentation Rate 30 mm/hr (0-30)
[2019-04-08 12:49] LABS: Scan Indicated on CBC? Y/N NO
[2019-04-08 13:00] LABS: CRP 6.32 mg/L (0.0-3.0); Rheumatoid Factor < 10.0 IU/mL (<15)
[2019-04-09 12:07] LABS: Anti-Scleroderma-70 AB <0.2 AI (0.0-0.9)
[2019-04-09 15:21] LABS: ANTINUCLEAR ANTIBODIES DIRECT Negative (Negative)
[2019-04-10 03:06] LABS: Angiotensin Convert Enzyme 40 U/L (14-82); Cytoplasmic Ab (C-ANCA) <1:20 titer (Neg:<1:20)
[2019-04-10 10:11] LABS: CCP IgG Antibodies 4 units (0-19); Perinuclear Ab (P-ANCA) <1:20 titer (Neg:<1:20)
== END ==
PROVIDERS: Family Provider Internal Medicine; PCP Internal Medicine; Referring Provider Internal Medicine Pulmonary Disease; Visit Provider Internal Medicine Pulmonary Disease
DX: J84.116 Cryptogenic organizing pneumonia (principal); J96.00 Acute respiratory failure, unspecified whether with hypoxia or hypercapnia; I27.20 Pulmonary hypertension, unspecified; I10 Essential (primary) hypertension
CPT/HCPCS: 36415; 71046; 82164; 85027; 85652; 86038; 86140; 86200; 86235; 86256; 86431

== ENCOUNTER → 2019-07-15 12:56 | Outpatient (CLI) | payer MEDICAID, SELFPAY ==
[2019-02-13 06:40] VITALS: BMI 23.1
--- NOTE | 2019-07-15 13:00 | CT_ITS ---
STUDY: CT CHEST WITHOUT CONTRAST REASON FOR EXAM: Female, 59 years old. Cryptogenic organizing pneumonia. RADIATION DOSAGE (If Supplied By Facility): CTDIvol = ( 19.71 ) mGy, DLP = ( 610.53 ) mGycm TECHNIQUE: Transaxial imaging was performed without the administration of intravenous contrast material. Individualized dose optimization techniques were used for this CT. COMPARISON: CT chest 02/09/2019 and 02/10/2018. FINDINGS: Heart and great vessels: Heart size normal. No aneurysm of the thoracic aorta. Main pulmonary artery and left and right pulmonary arteries prominent in caliber, main pulmonary artery 3.2 cm in diameter, similar to previous. Lungs, pleura: Interstitial lung disease has slightly but definitely progressively worsened over the previous 2 studies, with prominent interstitial markings and patchy groundglass densities most prominent in the lung apices, anterior segment of the right upper lobe, medial and lateral segments of the right middle lobe, and subpleural regions of the right lung base, and in the lingula and subpleural regions of the left lung base. No honeycombing or cavitation. Mediastinum: No adenopathy or mass or hematoma. Osseous: No fracture or acute osseous abnormality. Chest wall: No concerning findings. Upper abdomen: No acute findings. Surgical slips clips adjacent to the distal esophagus and proximal stomach again demonstrated. CT/Chest without Contrast IMPRESSION: Interstitial lung disease has slightly but definitely progressively worsened over the previous 2 studies. Appearance suggestive of either cryptogenic organizing pneumonia or nonspecific interstitial pneumonitis. Electronically Signed: Farhat Ryan, at 13:28 EDT Tel , Service support ,
== END ==
PROVIDERS: Family Provider Internal Medicine; PCP Internal Medicine; Referring Provider Internal Medicine Pulmonary Disease; Visit Provider Internal Medicine Pulmonary Disease
DX: J84.116 Cryptogenic organizing pneumonia (principal)
CPT/HCPCS: 71250

== ENCOUNTER → 2019-09-22 15:17 | Outpatient (CLI) | payer MEDICAID, SELFPAY ==
[2019-02-13 06:40] VITALS: BMI 23.1
[2019-09-22 18:16] LABS: Erythrocyte Sedimentation Rate 31 mm/hr (0-30)
== END ==
PROVIDERS: Family Provider Internal Medicine; PCP Internal Medicine; Referring Provider Internal Medicine Pulmonary Disease; Visit Provider Internal Medicine Pulmonary Disease
DX: J84.116 Cryptogenic organizing pneumonia (principal); J45.909 Unspecified asthma, uncomplicated; I27.20 Pulmonary hypertension, unspecified
CPT/HCPCS: 36415; 85652; 86140

== ENCOUNTER → 2019-09-28 12:38 | Outpatient (CLI) | payer MEDICAID, SELFPAY ==
[2019-02-13 06:40] VITALS: BMI 23.1
--- NOTE | 2019-09-28 12:40 | ART_ITS ---
Reason For Study: Leg Wound Procedure A bilateral lower extremity continuous wave Doppler with analog waveform analysis,segmental pressures,and ankle brachial indexes without exercise. Left Segmental Pressures Left brachial= 129mmHg. Left posterior tibial artery = 153mmHg. Left dorsalis pedis artery = 138mmHg. The left posterior tibial artery waveforms are triphasic. The left dorsalis pedis waveforms are triphasic. Right Segmental Pressures Right brachial= 127mmHg. Right posterior tibial artery = 151mmHg. Right dorsalis pedis artery = 150mmHg. The right posterior tibial artery waveforms are triphasic. The right dorsalis pedis waveforms are triphasic. Indices The right ankle brachial index by the posterior tibial artery is 1.17. The right ankle brachial index by the dorsalis pedis is 1.16. The left ankle brachial index by the posterior tibial artery is 1.19. The left ankle brachial index by the dorsalis pedis is 1.07. Interpretation Summary 1. No evidence of occlussive disease at rest with triphasic flow and OLIMPIA 1.17 and 1.19. Ordering Physician: Estefania Casper Referring Physician: Estefania Casper Performed By: Tracy Gordon RDCS/RVT
== END ==
PROVIDERS: Family Provider Internal Medicine; PCP Internal Medicine; Referring Provider Internal Medicine; Visit Provider Internal Medicine
DX: S81.802A Unspecified open wound, left lower leg, initial encounter (principal)
CPT/HCPCS: 93923

== ENCOUNTER 2019-10-05 13:10 | Inpatient (IN) | payer MEDICAID, SELFPAY ==
[2019-09-28 13:52] VITALS: BMI 27.9
[2019-10-05] VITALS (12 sets, daily range): BP systolic 90–122; BP diastolic 45–68; PULSE 107–120; RESP 16–28; TEMP 36.7–37.2; O2SAT 76–98; BMI 25.8; BMI 26.6
--- NOTE | 2019-10-05 13:41 | EKG12_ITS ---
Test Reason : HEADACHE Blood Pressure : / mmHG Vent. Rate : 112 BPM Atrial Rate : 112 BPM P-R Int : 140 ms QRS Dur : 080 ms QT Int : 296 ms P-R-T Axes : 052 054 049 degrees QTc Int : 404 ms Sinus tachycardia Otherwise normal ECG Confirmed by LYNN BARNETT, HEIDY ([id number]), editor magazine MYRNA FERREIRA ([id number]) on 10/07/2019 2:03:39 PM Referred By: Sofia Johnson Confirmed By:HEIDY BAILEY MD
--- NOTE | 2019-10-05 13:42 | CT_ITS ---
STUDY: CT BRAIN WITHOUT CONTRAST REASON FOR EXAM: Female, 59 years old. Migraines. History of stroke. RADIATION DOSAGE (If Supplied By Facility): CTDIvol = ( 44.99 ) mGy, DLP = ( 745.49 ) mGycm TECHNIQUE: Transaxial CT imaging of the brain was performed without administration of intravenous contrast material. Individualized dose optimization techniques were used for this CT. COMPARISON: None. FINDINGS: There is an old right temporoparietal infarct and an old left parietal infarct with encephalomalacia. There is no acute bleed or infarct. There are chronic ischemic and atrophic changes. The ventricles are normal in configuration. There is no hydrocephalus. The visualized paranasal sinuses are clear. The mastoid air cells are well aerated. There is no skull fracture. CT/Brain/Head without Contrast IMPRESSION: No acute intracranial abnormality. Old infarcts in the right temporoparietal region and left parietal lobe. Chronic ischemic and atrophic changes. Electronically Signed: Rey Harris, at 14:33 EST Tel , Service support ,
--- NOTE | 2019-10-05 13:56 | RAD_ITS ---
STUDY: X-RAY CHEST REASON FOR EXAM: Female, 59 years old. One week history of dyspnea and headaches. TECHNIQUE: Single AP portable view of the chest. COMPARISON: Comparison is made with prior study dated April 08, 2019. FINDINGS: Since prior study, there has been progressive airspace disease in the left hemithorax as well as in the right lower lobe. This may represent superimposed CHF on chronic interstitial fibrosis. Blunting of both costophrenic angles. Normal size heart. Normal mediastinum and fritz. Normal visualized pulmonary arteries. Normal visualized aortic arch and descending thoracic aorta. Normal visualized thoracic spine. Normal visualized ribs, clavicles, and shoulders. There is no demonstrated abnormality of the visualized soft tissue structures of the upper abdomen. RAD/Chest 1 View (Portable) IMPRESSION: Progressive airspace disease as described. This may represent CHF superimposed on the chronic scarring. Electronically Signed: Puneet Rajput, at 14:32 EST , Service support ,
[2019-10-05 14:03] LABS: Absolute Lymphocyte Count 1.18 X10^3/uL (0.83-4.51); Absolute Neutrophil Count 20.6 X10^3/uL (2.0-7.7); Basophil# 0.11 X10^3/uL; Basophil% 0.5 % (0-1); Eosinophil# 0.19 X10^3/uL; Eosinophils% 0.8 % (0-5); Hematocrit 40.3 % (37-47); Hemoglobin 12.4 g/dL (12.0-15.0); Lymphocyte # 1.18 X10^3/ul (4.0); Mean Corp Hgb Conc 30.8 g/dL (32-36); Mean Corpuscular Hgb 30.9 pg (27.0-32.0); Mean Corpuscular Volume 100.5 fL (81-99); Mean Platelet Vol. 9.7 fl (6.2-12.0); Monocyte# 1.06 X10^3/uL; Monocyte% 4.5 % (0-10); NRBC Flagged by Analyzer 0 % (0-5); Neutrophil # 20.55 X10^3/uL (2.7-7.7); Neutrophil % 86.5 % (47-70); POSITIVE DIFFERENTIAL YES; Platelet Count 181 K/mm3 (150-450); RBC Distribution Width CV 14.9 % (11.6-14.6); RBC Distribution Width SD 55.6 fl (35.1-43.9); Red Blood Count 4.01 M/mm3 (4.2-5.4); White Blood Count 23.7 K/mm3 (4.4-11.0)
[2019-10-05 14:07] LABS: Differential Indicated SCAN CRITERIA MET
[2019-10-05] MEDS: Ketorolac 15 MG/ML Vial IV (14:25)
[2019-10-05 14:26] LABS: Anion Gap 5 (5-15); BUN 29 mg/dL (7-18); BUN/Creat Ratio 17.4 RATIO (10-20); Calcium,Total 8.7 mg/dL (8.5-10.1); Chloride 107 mmol/L (98-107); Creatinine, Serum 1.67 mg/dL (0.55-1.02); EST Glomerular Filtration Rate 33 mL/min (>60); Est Glom Filt Rate - Afr Amer 40 mL/min (>60); Estimated Creatinine Clearance 33.54 ml/min; Glucose 161 mg/dL (74-106); Potassium 3.3 mmol/L (3.5-5.1); Sodium Level 139 mmol/L (136-145)
[2019-10-05 14:27] LABS: Differential Comment SCANNED
[2019-10-05 14:35] LABS: BNP,B-Type NATRIURETIC PEPTIDE 46.9 pg/mL (0-100)
[2019-10-05 15:21] LABS: Lactic Acid 1.4 mmol/L (0.4-2.0)
--- NOTE | 2019-10-05 15:49 | ED.VIS.GEN ---
History of Present Illness Chief Complaint: Headache Informant: Patient Narrative: Presents to PCP office with a headache. She was noted to be hypoxic. She has a history of cryptogenic pneumonia she is not continuously on oxygen at home but she presents with hypoxia she was 78% on room air. Per her PCP she is normally 92% on room air. Past Medical History - Allergies and Home Meds Allergies/Adverse Reactions: Allergies hydrocodone [From Vicodin] Allergy (Severe, Verified 10/05/19 13:11) Itching acetaminophen [From Percocet] Adverse Reaction (Unknown, Verified 10/05/19 13:11) Unknow meperidine [From Demerol] Adverse Reaction (Unknown, Verified 10/05/19 13:11) Unknown oxycodone [From Percocet] Adverse Reaction (Unknown, Verified 10/05/19 13:11) Unknow Penicillins Adverse Reaction (Unknown, Verified 10/05/19 13:11) Unknown sumatriptan [From Imitrex] Adverse Reaction (Unknown, Verified 10/05/19 13:11) Unknown Primary Care Physician: Estefania Casper MD [Primary Care Provider] - Past Medical History: - - MRDD, history of cryptogenic pneumonia Surgical History: - - Nephrectomy secondary to pyelonephritis Smoking Status: Never smoker - Family History Maternal Family History: Family History (Last Reviewed 09/28/19 @ 13:58 by Shannan Sepulveda) Father CAD (coronary artery disease) COPD (chronic obstructive pulmonary disease) Myocardial infarction, Onset Age: 60 Family History: Reports: Hypertension Paternal Family History: Family History (Last Reviewed 09/28/19 @ 13:58 by Shannan Sepulvdea) Father CAD (coronary artery disease) COPD (chronic obstructive pulmonary disease) Myocardial infarction, Onset Age: 60 Family History: Reports: Asthma, COPD Review of Systems All systems negative except as indicated General: Denies: Fever Eyes: Denies: Visual changes - bilaterally ENT: Denies: Rhinorrhea, Sore throat Cardiovascular: Denies: Chest pain Respiratory: Reports: - - She tells me as far as her breathing she feels the same and she does not feel particularly short of breath. Denies: Dyspnea, Cough, Sputum, Dyspnea on exertion Gastrointestinal: Denies: Abdominal pain Genitourinary: Denies: Dysuria Musculoskeletal: Denies: Myalgias Skin: Denies: Abrasions Neurological: Reports: Headache, - - She has had a gradual onset of headache that started yesterday she has a history of migraines this feels similar Psych: Denies: Depression Endocrine: Denies: Polyuria Hematologic: Denies: Easy bruising Physical Exam Vital Signs/Narrative: Vital Signs Temp Pulse Resp BP Pulse Ox 10/05/19 15:04 111 H 22 H 107/51 L 95 10/05/19 14:33 98.2 F 107 H 26 H 115/67 97 10/05/19 14:27 107 H 21 H 121/68 H 76 10/05/19 13:11 98.4 F 120 H 16 90/58 L 80 General: Well nourished, Well developed Eyes: Perrl ENT: Moist mucous membranes Neck: Supple Cardiovascular: Regular rate, Regular rhythm Respiratory: No distress, - - Coarse bilateral breath sounds Abdomen: Soft, Nontender, Nondistended Back: Nontender, Normal Inspection Extremities: Nontender Skin: Normal color Neurological: Alert, Oriented x3, Normal Strength, Normal Sensation Psychological: Normal affect Diagnostic/Tx/Re-eval Chest X-Ray - ED: 1 View, Read by ED Physician, Read by Radiologist, - - There is worsening bilateral interstitial findings, this could be significant with her prior cryptogenic pneumonia diagnosis, there is somewhat worsening - Rhythm Strip Rhythm Strip: Sinus Rhythm Rate: 112 Ectopy: None - Medical Decision Making Patient has worsening of her lung findings, however overall she appears well she does not appear toxic. She has chronic leukocytosis of 20,000, this is unchanged today. She has no fever chills I believe most of her symptoms are secondary to the cryptogenic pneumonia and not an actual infectious process. Because of this I deferred the antibiotics I will admit and she will need a pulmonology consult. She is on nasal cannula and saturating in the mid 90s. Admit guarded condition ED Disposition - Plan for ED Patient: Disposition: Acute Care Hospital [facility] Diagnosis: Hypoxia, Cryptogenic organizing pneumonia Referrals: Estefania Casper MD [Primary Care Provider] -
--- NOTE | 2019-10-05 15:51 | HP.PCM_ITS ---
History of Present Illness Date of Admission: 10/05/19 Chief Complaint: headache The patient is a 59 year old F with an extensive past medical history as listed. She was admitted through the ED on 10/05/2019 with a complaint of headache have been going on for a couple of days. Patient denied any fever, chills, shortness of breath, cough, palpitations, dizziness, chest pain, abdominal pain, diarrhea or vomiting. The only persistent symptom was the headache so today she decided to go and see a PCP. Of note, her mother stated that last night her oxygen saturation was around 90 so she put her on 2 L of oxygen which she uses as needed at home because she thought it would help with a headache. Patient d enied being short of breath at that time. She states she has used her home oxygen in a while. In her PCPs office her saturation was down in the 70s so she was sent to the ED. The ED she was initially saturating at 76% and required 2 L of oxygen to go up to around 90%. Vitals were significant for pulse rate of 111 and respiratory rate of 22. Chemistry showed potassium of 3.3 and creatinine of 1.67 which is around her baseline. Lactic acid was 1.4. BNP was 46.9 initial troponin was negative. CBC showed white cell count of 23.7, they must be stated that her white cell count is usually chronically elevated. Patient is also on chronic steroids. Chest x-ray showed progressive airspace disease in the left hemithorax as well as in the right lower lobe with blunting of both costophrenic angles. She has been admitted to be managed for acute hypoxic respiratory failure due to bilateral pneumonia. [] Past Medical History Past Medical History (Chronic Problems): Chronic Problems (Last Reviewed 09/28/19 @ 13:58 by Shannan Sepulveda) Palpitations (Chronic) Cardiac murmur (Chronic) Dyspnea (Chronic) Nonrheumatic mitral valve prolapse (Chronic) Long-term use of high-risk medication (Chronic) Hyperlipidemia (Chronic) Other secondary pulmonary hypertension (Chronic) Medical History: Medical History (Last Reviewed 09/28/19 @ 13:58 by Shannan Sepulveda) Palpitations (Chronic) R00.2 Cardiac murmur (Chronic) R01.1 Dyspnea (Chronic) R06.00 Chest pain, precordial (Acute) R07.2 Chest pain, unspecified (Acute) R07.9 Nonrheumatic mitral valve prolapse (Chronic) I34.1 Long-term use of high-risk medication (Chronic) Z79.899 Hyperlipidemia (Chronic) E78.5 Other secondary pulmonary hypertension (Chronic) I27.29 Anxiety F41.9 Depression F32.9 History of bacterial endocarditis Z86.79 History of stroke Z86.73 Pulmonary hypertension I27.20 Frequent falls R29.6 History of hysterectomy Z90.710 h/o stroke Allergies hydrocodone [From Vicodin] Allergy (Severe, Verified 10/05/19 13:11) Itching acetaminophen [From Percocet] Adverse Reaction (Unknown, Verified 10/05/19 13:11) Unknow meperidine [From Demerol] Adverse Reaction (Unknown, Verified 10/05/19 13:11) Unknown oxycodone [From Percocet] Adverse Reaction (Unknown, Verified 10/05/19 13:11) Unknow Penicillins Adverse Reaction (Unknown, Verified 10/05/19 13:11) Unknown sumatriptan [From Imitrex] Adverse Reaction (Unknown, Verified 10/05/19 13:11) Unknown Home Medications: Ambulatory Orders Medication Instructions Recorded ergocalciferol (vitamin D2) 50,000 50,000 unit PO QMONTH 10/28/17 unit capsule [id number] 2 cap PO TID 10/28/17 6,000-19,000-30,000 unit capsule,delayed rel propranolol ER 80 mg capsule,24 80 mg PO DAILY cap 10/28/17 hr,extended release albuterol sulfate HFA 90 1 puff INHALATION Q6H PRN 09/16/18 mcg/actuation aerosol inhaler montelukast 10 mg tablet 10 mg PO QPM 09/16/18 Sertraline HCl [Zoloft] 100 mg PO BID 02/09/19 buspirone 15 mg tablet 15 mg PO BID tab 09/28/19 clotrimazole 10 mg angela 10 mg MUCOUS MEMBRANE TID PRN 09/28/19 conjugated estrogens 0.3 mg tablet 0.3 mg PO DAILY 09/28/19 desipramine 75 mg tablet 75 mg PO QHS 09/28/19 fluticasone propionate 110 2 puff INHALATION BID 09/28/19 mcg/actuation HFA aerosol inhaler meclizine 25 mg tablet 25 mg PO BID PRN 09/28/19 tizanidine 4 mg tablet 4 mg PO TID PRN 09/28/19 Atorvastatin Calcium [Lipitor] 10 mg PO QHS 10/05/19 Omeprazole 40 mg PO DAILY 10/05/19 Prednisone 5 mg PO TID 10/05/19 Surgical History: Surgical History (Last Reviewed 09/28/19 @ 13:58 by Shannan Sepulveda) History of bilateral oophorectomy Z90.722 History of cholecystectomy Z90.49 History of nephrectomy, unilateral Onset Date: ~01/1997 Z90.5 left History of vagotomy Z98.890 Surgical History: - - Nephrectomy secondary to pyelonephritis Psychiatric History: - - History of MRDD 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 Lives: Alone Smoking Status: Never smoker Tobacco Use: Non-smoker Alcohol: None Drugs: None - *Family History Maternal Family History: Family History (Last Reviewed 09/28/19 @ 13:58 by Shannan Sepulveda) Father CAD (coronary artery disease) COPD (chronic obstructive pulmonary disease) Myocardial infarction, Onset Age: 60 History Items: Hypertension Paternal Family History: Family History (Last Reviewed 09/28/19 @ 13:58 by Shannan Sepulveda) Father CAD (coronary artery disease) COPD (chronic obstructive pulmonary disease) Myocardial infarction, Onset Age: 60 History Items: Asthma, COPD Review of Systems Constitutional: Denies: Chills, Fever, Malaise, Weakness, Weight Change, Fatigue Eyes: Denies: Blurred vision HEENT: Denies: Head Aches, Sinus Congestion, Sinus Drainage Cardiovascular: Denies: Chest Pain, Palpitations Respiratory: Denies: Cough, Shortness of Breath, Shortness of breath at rest, Shortness of breath upon exertion, Sputum production, Wheezing Gastrointestinal: Denies: Abdominal Pain, Nausea, Vomiting Genitourinary: Denies: Dysuria Musculoskeletal: Denies: Joint Pain, Joint Tenderness Skin: Denies: Rash, Wounds Neurological: Reports: Headaches. Denies: Focal weakness, Numbness, Tingling Psychiatric: Denies: Anxiety, Depression, Homicidal Ideations, Suicidal Ideations Hematologic/ Lymphatic: Denies: Easy Bruising, Easy Bleeding VTE Information - Inpt Only VTE Present on Admission: No VTE Pharm Prophylaxis ordered?: Yes Patient Problems: Active and Suspected Problems (Last Reviewed 09/28/19 @ 13:58 by Shannan Sepulveda) Hypoxia (Acute) Cryptogenic organizing pneumonia (Acute) - Physical Exam Vitals/I&O's: Vital Signs Temp Pulse Resp BP Pulse Ox 98.2 F 111 H 22 H 107/51 L 95 10/05/19 14:33 10/05/19 15:04 10/05/19 15:04 10/05/19 15:04 10/05/19 15:04 Oxygen Flow Rate (L/min) 2 Oxygen Delivery Method Nasal Cannula Weight: 160 lb Body Mass Index (BMI) 25.8 General: Alert, Oriented x3, Cooperative, No apparent distress, Lethargic HEENT: Atraumatic, PERRLA, EOMI, Normocephalic Oral: Dry Mucosa Neck: Supple, No JVD, Negative Carotid Bruits Lungs: - - coarse crackles bibasally, decreased breath sounds bibasally. Mild wheezing. on 2L of oxygen by nasal canula Cardiovascular: Regular rate, Regular Rhythm, Normal S1, Normal S2, No murmurs Abdomen: Bowel Sounds Present, Soft, Non Tender, Non-Distended, No Hepato- splenomegaly Extremities: No clubbing, No cyanosis, No edema, Capillary Refill Less than 3 Seconds Skin: No rashes, No breakdown Musculoskeletal: No Tenderness to Palpation of Joints or Extremities Lymphatic: No Cervical, Supraclavicular, or Inguinal Adenopathy Neurological: Cranial nerves II-XII grossly intact, Neuro grossly intact, Motor Exam 5/5 strength throughout Psych/Mental Status: Normal Affect, Appropriate, Alert and oriented to time, place, person, mood and affect Laboratory Results 10/05/19 13:53: WBC 23.7 H, RBC 4.01 L, Hgb 12.4, Hct 40.3, MCV 100.5 H, MCH 30.9, MCHC 30.8 L, RDW Std Deviation 55.6 H, RDW Coeff of Genevieve 14.9 H, Plt Count 181, MPV 9.7, Immature Gran % (Auto) 2.700 H, Neut % (Auto) 86.5 H, Lymph % (Auto) 5.0 L, Sheridan % (Auto) 4.5, Eos % (Auto) 0.8, Baso % (Auto) 0.5, Absolute Neuts (auto) 20.6 H, Absolute Lymphs (auto) 1.18, Nucleated RBC % 0, Differential Comment SCANNED 10/05/19 13:53: Sodium 139, Potassium 3.3 L, Chloride 107, Carbon Dioxide 27.0, Anion Gap 5, BUN 29 H, Creatinine 1.67 H, Estim Creat Clear Calc 33.54, Est GFR (MDRD) Af Amer 40 L, Est GFR (MDRD) Non-Af 33 L, BUN/Creatinine Ratio 17.4, Glucose 161 H, Calcium 8.7, Troponin I < 0.015 10/05/19 13:53: B-Natriuretic Peptide 46.9 10/05/19 14:41: Lactic Acid 1.[address] 10/05/19 13:42 IMPRESSION: No acute intracranial abnormality. Old infarcts in the right temporoparietal region and left parietal lobe. Chronic ischemic and atrophic changes. Electronically Signed: Rey Harris, at 14:33 EST Tel , Service support , Chest X-Ray 10/05/19 13:56 IMPRESSION: Progressive airspace disease as described. This may represent CHF superimposed on the chronic scarring. Electronically Signed: Puneet Rajput, at 14:32 EST , Service support , Assessment/Plan All Active Problems (Last Reviewed 09/28/19 @ 13:58 by Shannan Sepulveda) Hypoxia (Acute) Cryptogenic organizing pneumonia (Acute) Malaise (Acute) Low pulse oximetry (Acute) Chest pain, precordial (Acute) Chest pain, unspecified (Acute) 59 y/o female admitted with a complaint of headache, and found to be hypoxic 1.Acute hypoxic respiratory failure due to Bilateral community acquired pneumonia * saturation was in the 70s on admission; wbc is elevated, but her wbc is chronically elevated * SIRS criteria was 3/4 (tachycardia, tachypnea and leucocytosis) * patient does have a history of cryptogenic pneumonia * CXR showed worsening bilateral airspace disease * will get CTA chest per discussion with her manufacturing support engineer to ensure she doesnt have PE * admit to PCU with telemetry * give breathing treatments and continue montelukast and fluticasone inhaler 2. Sepsis due to community acquired pneumonia * SIRS criteria is 3/4 as under 1 * lactic acid was 1.4 * start IV levofloxacin and flagyl, which is what she responded to per last visit with similar presentation * hydrate gently with IVF NS * check urine for strep and Legionella pneumoniae, check blood cultures. If she starts coughing, to do sputum culture. * give IV solumedrol 40mg q8 3. hypokalemia: K is 3.3. Will replace and monitor 4. CKD 3: Cr is 1.67, with baseline of ~ 1.4-1.5. Will monitor 5.Hyperlipidemia:on statin 6. History of stroke: stable 7. history of MRDD:stable 8. Depression and anxiety: On Zoloft and BuSpar as well as desipramine. DVT prophylaxis; SCDs Code status: full code. * Patient and mother counseled extensively about different types of CODE STATUS including full code, DNR CCA and DNR CCA. Patient deferred to her mother and mother elected for her to be full code. Total [id number] time 16 minutes. Code Visit Inpatient E&M: 35027 Init Hosp L3 Procedures: 11328 Advncd Care Plan 30 Min
--- NOTE | 2019-10-05 16:37 | CT_ITS ---
STUDY: CTA CHEST REASON FOR EXAM: Female, 59 years old. Hypoxia RADIATION DOSAGE (If Supplied By Facility): CTDIvol = ( 12.6 ) mGy, DLP = ( 469.81 ) mGycm TECHNIQUE: The examination was performed with the intravenous administration of IV 100mL Isovue-370 100. Post-processing of the angiographic images was performed, with multiplanar reformation and 3D reconstruction. Individualized dose optimization techniques were used for this CT. COMPARISON: CTA chest February 09, 2019 FINDINGS: Normal enhancement of the main pulmonary artery and right and left pulmonary arteries. Normal enhancement of the bilateral peripheral pulmonary arteries. There is no demonstrated pulmonary embolism. There is prominence of the pulmonary arteries. There is no demonstrated aortic dissection. Normal heart and pericardium. Normal mediastinum. Normal hilar regions. Normal visualized trachea and bronchi. The lungs are well expanded. Again seen is extensive bilateral patchy groundglass opacification with prominence of the interstitial lines. Normal pleura. Normal chest wall structures. Normal osseous structures. Normal visualized upper abdomen. CT/CTA Chest W/WO Contrast IMPRESSION: No evidence of pulmonary embolism. Redemonstrated extensive bilateral patchy groundglass opacification with prominence of interstitial lines. Differential is broad and with etiologies including edema, alveolar proteinosis, sarcoidosis, infection, neoplasm, inflammatory disorders, and inhalational processes among others. Clinical correlation is recommended. Pulmonary consultation is suggested. Prominence of the pulmonary arteries suggesting pulmonary arterial hypertension. Electronically Signed: David Romero, at 18:01 EST Tel , Service support ,
[2019-10-05] MEDS: 0.9% Normal Saline 1,000 ML 100 ML IV (18:23)
[2019-10-05] MEDS: Ipratropium/Albuterol Sulfate 3 ML AMPUL.NEB INHALATION (19:18)
[2019-10-05] MEDS: CLARIFY ORDER 1 EACH NOTE ×2 (19:55→19:56)
[2019-10-05] MEDS: metroNIDAZOLE 500 MG/100 ML BAG 100 MG IV (19:55)
[2019-10-05] MEDS: levoFLOXacin IV 750 MG/150 ML BAG 100 MG IV (22:00)
[2019-10-05] MEDS: Atorvastatin Calcium 10 MG Tablet PO (22:05)
[2019-10-05] MEDS: Sertraline 100 MG Tablet PO (22:05)
[2019-10-05] MEDS: Montelukast 10 MG Tablet PO (22:05)
[2019-10-05] MEDS: busPIRone 15 MG TABLET PO (22:05)
[2019-10-05] MEDS: tiZANidine HCl 2 MG Tablet 4 MG PO (22:54)
[2019-10-05] MEDS: Acetaminophen 500 MG Tablet 1000 MG PO (22:54)
[2019-10-05] MEDS: Meclizine HCl 25 MG Tablet PO (22:54)
[2019-10-06] VITALS (18 sets, daily range): BP systolic 99–110; BP diastolic 47–66; PULSE 87–120; RESP 18–24; TEMP 36.4–36.8; O2SAT 91–98
[2019-10-06] MEDS: Ipratropium/Albuterol Sulfate 3 ML AMPUL.NEB INHALATION ×3 (00:25→19:03)
[2019-10-06] MEDS: metroNIDAZOLE 500 MG/100 ML BAG 100 MG IV ×3 (05:17→21:06)
[2019-10-06] MEDS: Clotrimazole 10 MG Troche MUCOUS MEM ×4 (05:20→21:06)
[2019-10-06 06:40] LABS: Absolute Lymphocyte Count 0.64 X10^3/uL (0.83-4.51); Basophil# 0.15 X10^3/uL; Basophil% 0.6 % (0-1); Eosinophil# 0.18 X10^3/uL; Eosinophils% 0.7 % (0-5); Hematocrit 39.5 % (37-47); Hemoglobin 11.9 g/dL (12.0-15.0); Lymphocyte # 0.64 X10^3/ul (4.0); Lymphocyte % 2.5 % (19-41); Mean Corp Hgb Conc 30.1 g/dL (32-36); Mean Corpuscular Hgb 30.7 pg (27.0-32.0); Mean Corpuscular Volume 101.8 fL (81-99); Mean Platelet Vol. 9.8 fl (6.2-12.0); Monocyte# 0.59 X10^3/uL; Monocyte% 2.3 % (0-10); NRBC Flagged by Analyzer 0 % (0-5); Neutrophil # 23.01 X10^3/uL (2.7-7.7); Neutrophil % 91.4 % (47-70); POSITIVE DIFFERENTIAL YES; POSITIVE MORPHOLOGY YES; Platelet Count 164 K/mm3 (150-450); RBC Distribution Width CV 14.8 % (11.6-14.6); RBC Distribution Width SD 55.7 fl (35.1-43.9); Red Blood Count 3.88 M/mm3 (4.2-5.4); White Blood Count 25.2 K/mm3 (4.4-11.0)
[2019-10-06 07:08] LABS: Anion Gap 7 (5-15); BUN 23 mg/dL (7-18); BUN/Creat Ratio 15.9 RATIO (10-20); Chloride 109 mmol/L (98-107); Creatinine, Serum 1.45 mg/dL (0.55-1.02); EST Glomerular Filtration Rate 39 mL/min (>60); Est Glom Filt Rate - Afr Amer 47 mL/min (>60); Estimated Creatinine Clearance 38.62 ml/min; Glucose 176 mg/dL (74-106); Potassium 3.2 mmol/L (3.5-5.1); Sodium Level 141 mmol/L (136-145)
[2019-10-06 07:34] LABS: Differential Indicated SCAN CRITERIA MET
[2019-10-06] MEDS: busPIRone 15 MG TABLET PO ×2 (09:07→21:05)
[2019-10-06] MEDS: Pantoprazole Sodium 40 MG Tablet PO (09:08)
[2019-10-06] MEDS: Sertraline 100 MG Tablet PO ×2 (09:09→21:05)
[2019-10-06] MEDS: 0.9% Normal Saline 1,000 ML 100 ML IV (09:15)
[2019-10-06] MEDS: Potassium Chloride 10mEq/100mL 10 MEQ/100 ML IV.SOLN. 100 MEQ IV BOLUS (09:50)
--- NOTE | 2019-10-06 12:46 | CASEMGMT ---
Assessment- SW initially spoke with patient for assessment and then her mom arrived and she answered the questions. Living situation- Patient lives alone in a 1 story home. She has steps to get inside. Her mom lives next door. PCP: Dr Casper Specialists: Dr Maradiaga-Neurology at [facility], Dr Pritchard- Psychologist at [facility], Dr Herbert-Account Information Clerk, and Dr Fatima-Cardiology Pharmacy: [facility] Pharmacy DME: shower chair, cane, walker, chair lift at patient's mom's home, and O2 from [employer] 2L ADL's/IADL's: Patient is independent in all activities of daily living. The only things she needs assistance with is transportation and medication management, which her mom helps her. Past SNF/rehab: None Past HH: None LW: Patient does not have a healthcare LW POA: Patient has a healthcare POA and her mom is her POA SW spoke with patient and her mom. Patient normally does really well at home. When she gets sick she goes and stays with her mom. Patient's mom said she does not know how to work the portable O2 tanks so she will have to call and see if they can show her how to use them. SW told her SW can let RN CM know this information. Plan: Return home at d/c. Follow for d/c needs. Ernestine TAYLOR MSW
--- NOTE | 2019-10-06 16:24 | PCM.PN.HOSP ---
Patient Problems: Active and Suspected Problems (Last Reviewed 09/28/19 @ 13:58 by Sahnnan Sepulveda) Hypoxia (Acute) Cryptogenic organizing pneumonia (Acute) Subjective: Patient seen and examined. She feels better than yesterday. She still does remain mildly short of breath and remains on 3 L of oxygen. Review of systems is otherwise negative. Labs and vitals reviewed. Potassium is low today at 3.2 and creatinine has trended down to 1.45. white Cell count is 25.2 Vitals/I&O's: Vital Signs Temp Pulse Resp BP Pulse Ox 98.2 F 90 18 101/51 L 93 10/06/19 14:45 10/06/19 14:45 10/06/19 14:45 10/06/19 14:45 10/06/19 14:45 Oxygen Flow Rate (L/min) 3 Oxygen Delivery Method Nasal Cannula Weight: 164 lb 14.492 oz Body Mass Index (BMI) 26.6 Intake and Output for Last 24 Hours 10/04/19 10/05/19 10/06/19 23:59 23:59 23:59 Intake Total 1511.66 / 1511.66 955.01 / 955.01 Output Total 300 / 300 200 / 200 Balance 1211.66 / 1211.66 755.01 / 755.01 General: Alert, Oriented x3, Cooperative, No apparent distress, HEENT: Atraumatic, PERRLA, EOMI, Normocephalic Oral: Dry Mucosa Neck: Supple, No JVD, Negative Carotid Bruits Lungs: - - coarse crackles bibasally, decreased breath sounds bibasally. on 3L of oxygen by nasal canula Cardiovascular: Regular rate, Regular Rhythm, Normal S1, Normal S2, No murmurs Abdomen: Bowel Sounds Present, Soft, Non Tender, Non-Distended, No Hepato-splenomegaly Extremities: No clubbing, No cyanosis, No edema, Capillary Refill Less than 3 Seconds Skin: No rashes, No breakdown Musculoskeletal: No Tenderness to Palpation of Joints or Extremities Lymphatic: No Cervical, Supraclavicular, or Inguinal Adenopathy Neurological: Cranial nerves II-XII grossly intact, Neuro grossly intact, Motor Exam 5/5 strength throughout Psych/Mental Status: Normal Affect, Appropriate, Alert and oriented to time, place, person, mood and affect Microbiology Past 72 Hours 10/06/19 00:30 Mucosa - Nose Respiratory Panel (PCR) - Final 10/05/19 20:19 Urine, Clean Catch Streptococcus pneumoniae Antigen (M - Final 10/05/19 20:29 Urine, Clean Catch Legionella Antigen - Final Laboratory Results 10/06/19 06:15: WBC 25.2 H, RBC 3.88 L, Hgb 11.9 L, Hct 39.5, MCV 101.8 H, MCH 30.7, MCHC 30.1 L, RDW Std Deviation 55.7 H, RDW Coeff of Genevieve 14.8 H, Plt Count 164, MPV 9.8, Immature Gran % (Auto) 2.500 H, Neut % (Auto) 91.4 H, Lymph % (Auto) 2.5 L, Dent % (Auto) 2.3, Eos % (Auto) 0.7, Baso % (Auto) 0.6, Absolute Neuts (auto) 23.0 H, Absolute Lymphs (auto) 0.64 L, Nucleated RBC % 0 10/06/19 06:15: Sodium 141, Potassium 3.2 L, Chloride 109 H, Carbon Dioxide 25.0, Anion Gap 7, BUN 23 H, Creatinine 1.45 H, Estim Creat Clear Calc 38.62, Est GFR (MDRD) Af Amer 47 L, Est GFR (MDRD) Non-Af 39 L, BUN/Creatinine Ratio 15.9, Glucose 176 H, Calcium 8.0 L Diagnostic Data Brain CT 10/05/19 13:42 IMPRESSION: No acute intracranial abnormality. Old infarcts in the right temporoparietal region and left parietal lobe. Chronic ischemic and atrophic changes. Electronically Signed: Rey Harris, at 14:33 EST Tel , Service support , Chest X-Ray 10/05/19 13:56 IMPRESSION: Progressive airspace disease as described. This may represent CHF superimposed on the chronic scarring. Electronically Signed: Puneet Rajput, at 14:32 EST , Service support , Chest CTA 10/05/19 16:37 IMPRESSION: No evidence of pulmonary embolism. Redemonstrated extensive bilateral patchy groundglass opacification with prominence of interstitial lines. Differential is broad and with etiologies including edema, alveolar proteinosis, sarcoidosis, infection, neoplasm, inflammatory disorders, and inhalational processes among others. Clinical correlation is recommended. Pulmonary consultation is suggested. Prominence of the pulmonary arteries suggesting pulmonary arterial hypertension. Electronically Signed: David Romero, at 18:01 EST Tel , Service support , Current Medications Acetaminophen (Tylenol) 1,000 mg PO Q8H PRN PRN PRN Reason: HEADACHE Last Admin: 10/05/19 22:54 Dose: 1,000 mg Documented by: Albuterol Sulfate (Ventolin Aerosols) 2.5 mg INHALATION Q4H PRN PRN Reason: SOB &/OR WHEEZING Albuterol/Ipratropium (Duoneb) 3 ml INHALATION Q6H.RT [facility] Last Admin: 10/06/19 13:05 Dose: 3 ml Documented by: Atorvastatin Calcium (Lipitor) 10 mg PO QHS [facility] Last Admin: 10/05/19 22:05 Dose: 10 mg Documented by: Buspirone HCl (Buspar) 15 mg PO BID [facility] Last Admin: 10/06/19 09:07 Dose: 15 mg Documented by: Clotrimazole (Mycelex) 10 mg MUCOUS MEM 5X/DAY [facility] Last Admin: 10/06/19 13:18 Dose: 10 mg Documented by: Desipramine HCl (Norpramin) 75 mg PO QHS [facility] Last Admin: 10/05/19 22:05 Dose: 75 mg Documented by: Dextrose (D50w Syringe) 0 gm IV X1 PRN; Protocol PRN Reason: Hypoglycemia Ergocalciferol (Vitamin D) 50,000 unit PO QMONTH JENNIFFER Glucagon () 1 mg IM .X1 PRN PRN Reason: Hypoglycemia Levofloxacin (Levaquin Iv) 750 mg in 150 mls @ 100 mls/hr IV Q48H [facility] Last Infusion: 10/05/19 23:30 Dose: Infused Documented by: Metronidazole (Flagyl) 500 mg in 100 mls @ 100 mls/hr IV Q8 [facility] Last Infusion: 10/06/19 14:20 Dose: Infused Documented by: Sodium Chloride () 250 mls @ 15 mls/hr IV .[id number] PRN PRN Reason: Saline Flush Meclizine HCl (Antivert) 25 mg PO BID PRN PRN Reason: Vertigo Last Admin: 10/05/19 22:54 Dose: 25 mg Documented by: Methylprednisolone (Solu-Medrol) 40 mg IV Q8 [facility] Last Admin: 10/06/19 13:18 Dose: 40 mg Documented by: Montelukast Sodium (Singulair) 10 mg PO QPM [facility] Last Admin: 10/05/19 22:05 Dose: 10 mg Documented by: Ondansetron HCl (Zofran) 4 mg IV Q8H PRN PRN PRN Reason: NAUSEA/VOMITING Pancrelipase (Creon Dr 6,000 Unit Capsule) 2 capsule PO TIDCM [facility] Last Admin: 10/06/19 12:02 Dose: 2 capsule Documented by: Pantoprazole Sodium (Protonix) 40 mg PO DAILY [facility] Last Admin: 10/06/19 09:08 Dose: 40 mg Documented by: Propranolol HCl (Inderal La) 80 mg PO DAILY [facility] Last Admin: 10/06/19 12:02 Dose: Not Given Documented by: Sertraline HCl (Zoloft) 100 mg PO BID [facility] Last Admin: 10/06/19 09:09 Dose: 100 mg Documented by: Sodium Chloride () 10 - 40 ml IV UD PRN PRN Reason: SALINE FLUSH Tizanidine HCl (Zanaflex) 4 mg PO TID PRN PRN Reason: SPASMS Last Admin: 10/05/19 22:54 Dose: 4 mg Documented by: STROKE Vital Signs/Narrative: Vital Signs Temp Pulse Resp BP Pulse Ox 10/06/19 14:45 98.2 F 90 18 101/51 L 93 10/06/19 13:41 104 H 10/06/19 13:05 98 24 H 10/06/19 12:45 97.6 F L 98 18 99/47 L 98 Medical Necessity - Tobacco Use Smoking Status: Never smoker Tobacco Use: Non-smoker Assessment/Plan All Active Problems (Last Reviewed 09/28/19 @ 13:58 by Shannan Sepulveda) Hypoxia (Acute) Cryptogenic organizing pneumonia (Acute) Malaise (Acute) Low pulse oximetry (Acute) Chest pain, precordial (Acute) Chest pain, unspecified (Acute) 59 y/o female admitted with a complaint of headache, and found to be hypoxic 1.Acute hypoxic respiratory failure due to Bilateral community acquired pneumonia still requiring 3L of oxygen by nasal canula CTA was negative for PE, but showed extensive bilateral patchy groundglass opacities with prominence of interstitial lines wbc still remains elevated. on IV levaquin and flagyl, breathing treatments and fluticasone as well as montelukast discussed with her mastic man Dr Herbert today; he thinks she needs a lung biopsy to give a definite diagnosis she does not think the chronic steroids have been helping. Also per her latest pulmonary function test, her DLCO was 38% which is very worrisome. Dr. Herbert does not think that a biopsy. Bronchoscopy will be the best and advocates an open lung biopsy and recommends transfer to [facility] pulmonology service. Hospitalist discussed this with patient who adamantly refused any such transfer and states she only had agreed to a biopsy in [facility] as she did not want to leave town to go elsewhere for medical care. Hospitalist counseled patient to think about it overnight. Hospitalist requested that patient be admitting to medical team and patient and her family tomorrow so that we are all on the same page and discuss recommended transfer to [facility] to see what the final decision would be. Patient is agreeable to this for now. 2. Sepsis due to community acquired pneumonia as under 1. urine for strep and legionella antigens were negative, and respiratory panel was also negative. continue IV solumedrol, antibiotics and breathing treatments 3. hypokalemia: K is 3.2 today. Will replace and monitor 4. CKD 3: Cr is 1.45, which is around her baseline. 5.Hyperlipidemia:on statin 6. History of stroke: stable 7. history of MRDD:stable 8. Depression and anxiety: On Zoloft and BuSpar as well as desipramine. DVT prophylaxis; SCDs Code status: full code. Code Visit Inpatient E&M: 93257 Subs Hosp L3
[2019-10-06] MEDS: Montelukast 10 MG Tablet PO (21:05)
[2019-10-06] MEDS: Atorvastatin Calcium 10 MG Tablet PO (21:05)
[2019-10-06] MEDS: 0.9% Saline Lock 10 ML Syringe IV (21:15)
[2019-10-07] VITALS (20 sets, daily range): BP systolic 97–136; BP diastolic 55–67; PULSE 90–120; RESP 16–24; TEMP 36.3–36.7; O2SAT 85–96
[2019-10-07] MEDS: Ipratropium/Albuterol Sulfate 3 ML AMPUL.NEB INHALATION ×4 (01:30→18:45)
[2019-10-07] MEDS: 0.9% Saline Lock 10 ML Syringe IV ×2 (02:51→22:15)
[2019-10-07] MEDS: Propranolol LA 80 MG Capsule PO (04:28)
[2019-10-07] MEDS: metroNIDAZOLE 500 MG/100 ML BAG 100 MG IV ×3 (05:27→21:46)
[2019-10-07] MEDS: Clotrimazole 10 MG Troche MUCOUS MEM ×4 (05:31→22:07)
[2019-10-07 05:33] LABS: Absolute Lymphocyte Count 0.58 X10^3/uL (0.83-4.51); Absolute Neutrophil Count 26.6 X10^3/uL (2.0-7.7); Basophil# 0.09 X10^3/uL; Basophil% 0.3 % (0-1); Eosinophil# 0.01 X10^3/uL; Hematocrit 37.8 % (37-47); Hemoglobin 11.7 g/dL (12.0-15.0); Lymphocyte # 0.58 X10^3/ul (4.0); Mean Corpuscular Volume 100.3 fL (81-99); Mean Platelet Vol. 10.2 fl (6.2-12.0); Monocyte# 1.25 X10^3/uL; Monocyte% 4.3 % (0-10); NRBC Flagged by Analyzer 0.1 % (0-5); Neutrophil # 26.56 X10^3/uL (2.7-7.7); Neutrophil % 91.9 % (47-70); POSITIVE DIFFERENTIAL YES; Platelet Count 182 K/mm3 (150-450); RBC Distribution Width CV 14.8 % (11.6-14.6); RBC Distribution Width SD 55.2 fl (35.1-43.9); Red Blood Count 3.77 M/mm3 (4.2-5.4); White Blood Count 28.9 K/mm3 (4.4-11.0)
[2019-10-07 05:46] LABS: Anion Gap 8 (5-15); BUN 21 mg/dL (7-18); BUN/Creat Ratio 14.5 RATIO (10-20); Calcium,Total 8.4 mg/dL (8.5-10.1); Chloride 112 mmol/L (98-107); Creatinine, Serum 1.45 mg/dL (0.55-1.02); EST Glomerular Filtration Rate 39 mL/min (>60); Est Glom Filt Rate - Afr Amer 47 mL/min (>60); Estimated Creatinine Clearance 38.62 ml/min; Glucose 172 mg/dL (74-106); Potassium 3.6 mmol/L (3.5-5.1); Sodium Level 142 mmol/L (136-145)
[2019-10-07 07:08] LABS: Differential Indicated SCAN CRITERIA MET
[2019-10-07] MEDS: Acetaminophen 500 MG Tablet 1000 MG PO ×2 (08:05→16:28)
[2019-10-07] MEDS: Pantoprazole Sodium 40 MG Tablet PO (08:05)
[2019-10-07] MEDS: Sertraline 100 MG Tablet PO ×2 (08:06→22:07)
[2019-10-07] MEDS: busPIRone 15 MG TABLET PO ×2 (08:06→22:03)
--- NOTE | 2019-10-07 14:02 | PN_ITS ---
Patient Problems: Active and Suspected Problems (Last Reviewed 09/28/19 @ 13:58 by Shannan Sepulveda) Hypoxia (Acute) Cryptogenic organizing pneumonia (Acute) Subjective: Patient seen and examined. She complained of feeling terrible. Shortness of breath has remained the same. Still has a cough but denies any chest pain or palpitations, dizziness, diarrhea vomiting. Review of systems otherwise negative. Vitals/I&O's: Vital Signs Temp Pulse Resp BP Pulse Ox 98.0 F 95 20 H 97/55 L 94 10/07/19 13:30 10/07/19 13:30 10/07/19 13:30 10/07/19 13:30 10/07/19 13:30 Oxygen Flow Rate (L/min) 3 Oxygen Delivery Method Nasal Cannula Weight: 164 lb 14.492 oz Body Mass Index (BMI) 26.6 Intake and Output for Last 24 Hours 10/05/19 10/06/19 10/07/19 23:59 23:59 23:59 Intake Total 1511.66 / 1511.66 2295.01 / 2295.01 1260 / 1260 Output Total 300 / 300 200 / 200 Balance 1211.66 / 1211.66 2095.01 / 2095.01 1260 / 1260 General: Alert, Oriented x3, Cooperative, No apparent distress, HEENT: Atraumatic, PERRLA, EOMI, Normocephalic Oral: Dry Mucosa Neck: Supple, No JVD, Negative Carotid Bruits Lungs: - - coarse crackles bibasally, decreased breath sounds bibasally. on 3L of oxygen by nasal canula Cardiovascular: Regular rate, Regular Rhythm, Normal S1, Normal S2, No murmurs Abdomen: Bowel Sounds Present, Soft, Non Tender, Non-Distended, No Hepato- splenomegaly Extremities: No clubbing, No cyanosis, No edema, Capillary Refill Less than 3 Seconds Skin: No rashes, No breakdown Musculoskeletal: No Tenderness to Palpation of Joints or Extremities Lymphatic: No Cervical, Supraclavicular, or Inguinal Adenopathy Neurological: Cranial nerves II-XII grossly intact, Neuro grossly intact, Motor Exam 5/5 strength throughout Psych/Mental Status: Normal Affect, Appropriate, Alert and oriented to time, place, person, mood and affect Microbiology Past 72 Hours 10/05/19 14:50 Blood Culture (Wb) - Right Hand Blood Culture - Preliminary No growth in 48 hours. 10/05/19 14:41 Blood Culture (Wb) - Anticubital Left Blood Culture - Preliminary No growth in 48 hours. 10/06/19 00:30 Mucosa - Nose Respiratory Panel (PCR) - Final 10/05/19 20:19 Urine, Clean Catch Streptococcus pneumoniae Antigen (M - Final 10/05/19 20:29 Urine, Clean Catch Legionella Antigen - Final Laboratory Results 10/07/19 05:10: WBC 28.9 H, RBC 3.77 L, Hgb 11.7 L, Hct 37.8, MCV 100.3 H, MCH 31.0, MCHC 31.0 L, RDW Std Deviation 55.2 H, RDW Coeff of Genevieve 14.8 H, Plt Count 182, MPV 10.2, Immature Gran % (Auto) 1.500 H, Neut % (Auto) 91.9 H, Lymph % (Auto) 2.0 L, [place] % (Auto) 4.3, Eos % (Auto) 0.0, Baso % (Auto) 0.3, Absolute Neuts (auto) 26.6 H, Absolute Lymphs (auto) 0.58 L, Nucleated RBC % 0.1 10/07/19 05:10: Sodium 142, Potassium 3.6, Chloride 112 H, Carbon Dioxide 22.0, Anion Gap 8, BUN 21 H, Creatinine 1.45 H, Estim Creat Clear Calc 38.62, Est GFR (MDRD) Af Amer 47 L, Est GFR (MDRD) Non-Af 39 L, BUN/Creatinine Ratio 14.5, Glucose 172 H, Calcium 8.4 L Diagnostic Data Brain CT 10/05/19 13:42 IMPRESSION: No acute intracranial abnormality. Old infarcts in the right temporoparietal region and left parietal lobe. Chronic ischemic and atrophic changes. Electronically Signed: Rey Harris, at 14:33 EST Tel , Service support , Chest X-Ray 10/05/19 13:56 IMPRESSION: Progressive airspace disease as described. This may represent CHF superimposed on the chronic scarring. Electronically Signed: Puneet Rajput, at 14:32 EST , Service support , Chest CTA 10/05/19 16:37 IMPRESSION: No evidence of pulmonary embolism. Redemonstrated extensive bilateral patchy groundglass opacification with prominence of interstitial lines. Differential is broad and with etiologies including edema, alveolar proteinosis, sarcoidosis, infection, neoplasm, inflammatory disorders, and inhalational processes among others. Clinical correlation is recommended. Pulmonary consultation is suggested. Prominence of the pulmonary arteries suggesting pulmonary arterial hypertension. Electronically Signed: David Rubioi, at 18:01 EST Tel , Service support , Current Medications Acetaminophen (Tylenol) 1,000 mg PO Q8H PRN PRN PRN Reason: HEADACHE Last Admin: 10/07/19 08:05 Dose: 1,000 mg Documented by: Albuterol Sulfate (Ventolin Aerosols) 2.5 mg INHALATION Q4H PRN PRN Reason: SOB &/OR WHEEZING Albuterol/Ipratropium (Duoneb) 3 ml INHALATION Q6H.RT [facility] Last Admin: 10/07/19 13:05 Dose: 3 ml Documented by: Atorvastatin Calcium (Lipitor) 10 mg PO QHS [facility] Last Admin: 10/06/19 21:05 Dose: 10 mg Documented by: Buspirone HCl (Buspar) 15 mg PO BID [facility] Last Admin: 10/07/19 08:06 Dose: 15 mg Documented by: Clotrimazole (Mycelex) 10 mg MUCOUS MEM 5X/DAY [facility] Last Admin: 10/07/19 08:06 Dose: 10 mg Documented by: Desipramine HCl (Norpramin) 75 mg PO QHS [facility] Last Admin: 10/06/19 21:05 Dose: 75 mg Documented by: Dextrose (D50w Syringe) 0 gm IV X1 PRN; Protocol PRN Reason: Hypoglycemia Ergocalciferol (Vitamin D) 50,000 unit PO QMONTH [facility] Glucagon () 1 mg IM .X1 PRN PRN Reason: Hypoglycemia Levofloxacin (Levaquin Iv) 750 mg in 150 mls @ 100 mls/hr IV Q48H [facility] Last Infusion: 10/05/19 23:30 Dose: Infused Documented by: Metronidazole (Flagyl) 500 mg in 100 mls @ 100 mls/hr IV Q8 [facility] Last Infusion: 10/07/19 06:30 Dose: Infused Documented by: Sodium Chloride () 250 mls @ 15 mls/hr IV .[id number] PRN PRN Reason: Saline Flush Meclizine HCl (Antivert) 25 mg PO BID PRN PRN Reason: Vertigo Last Admin: 10/05/19 22:54 Dose: 25 mg Documented by: Methylprednisolone (Solu-Medrol) 40 mg IV Q8 [facility] Last Admin: 10/07/19 05:29 Dose: 40 mg Documented by: Montelukast Sodium (Singulair) 10 mg PO QPM [facility] Last Admin: 10/06/19 21:05 Dose: 10 mg Documented by: Ondansetron HCl (Zofran) 4 mg IV Q8H PRN PRN PRN Reason: NAUSEA/VOMITING Pancrelipase (Creon Dr 6,000 Unit Capsule) 2 capsule PO TIDCM [facility] Last Admin: 10/07/19 13:28 Dose: 2 capsule Documented by: Pantoprazole Sodium (Protonix) 40 mg PO DAILY [facility] Last Admin: 10/07/19 08:05 Dose: 40 mg Documented by: Propranolol HCl (Inderal La) 80 mg PO DAILY [facility] Sertraline HCl (Zoloft) 100 mg PO BID [facility] Last Admin: 10/07/19 08:06 Dose: 100 mg Documented by: Sodium Chloride () 10 - 40 ml IV UD PRN PRN Reason: SALINE FLUSH Last Admin: 10/07/19 02:51 Dose: 10 ml Documented by: Tizanidine HCl (Zanaflex) 4 mg PO TID PRN PRN Reason: SPASMS Last Admin: 10/05/19 22:54 Dose: 4 mg Documented by: STROKE Vital Signs/Narrative: Vital Signs Temp Pulse Resp BP Pulse Ox 10/07/19 13:30 98.0 F 95 20 H 97/55 L 94 10/07/19 13:05 90 16 10/07/19 11:12 95 10/07/19 10:30 97.6 F L 97 16 103/65 92 Medical Necessity - Tobacco Use Smoking Status: Never smoker Tobacco Use: Non-smoker Assessment/Plan All Active Problems (Last Reviewed 09/28/19 @ 13:58 by Shannan Sepulveda) Hypoxia (Acute) Cryptogenic organizing pneumonia (Acute) Malaise (Acute) Low pulse oximetry (Acute) Chest pain, precordial (Acute) Chest pain, unspecified (Acute) 59 y/o female admitted with a complaint of headache, and found to be hypoxic 1.Acute hypoxic respiratory failure due to Bilateral community acquired pneumonia * still requiring 3L of oxygen by nasal canula * CTA was negative for PE, but showed extensive bilateral patchy groundglass opacities with prominence of interstitial lines * wbc still remains elevated and is up to 28.9; patient is on steroids, which is likely contributing * on IV levaquin and flagyl, breathing treatments and fluticasone as well as montelukast * blood cutlures showed no growth after 24hours, urine for strep and legionella were negative, and respiratory panel was also negative * discussed open lung biopsy and need for transfer to [facility] with patient, her mother and sister today. Patient adamantly refused biopsy. Sister and mother are on board with patient going to [facility] for biopsy; however, patient still ins isted that she didnt want to have the biopsy * family wish to have more time to discuss biopsy option with patient and will let medical team know tomorrow if patient has changed her mind. * 2. Sepsis due to community acquired pneumonia * as under 1. * urine for strep and legionella antigens were negative, and respiratory panel was also negative. * continue IV solumedrol, antibiotics and breathing treatments * * 3. hypokalemia: resolved. 4. CKD 3: stable 5.Hyperlipidemia:on statin 6. History of stroke: stable 7. history of MRDD:stable 8. Depression and anxiety: On Zoloft and BuSpar as well as desipramine. DVT prophylaxis: SCDs. Will start lovenox today since Dr Herbert is not going to do a bronchoscopy Code status: full code. Code Visit Inpatient E&M: 74783 Subs Hosp L3
[2019-10-07] MEDS: Montelukast 10 MG Tablet PO (20:43)
[2019-10-07] MEDS: Atorvastatin Calcium 10 MG Tablet PO (22:03)
[2019-10-07] MEDS: levoFLOXacin IV 750 MG/150 ML BAG 100 MG IV (22:54)
--- NOTE | 2019-10-07 23:23 | CPS ---
increased to 6 l/m per nurse for low sat
[2019-10-08] VITALS (24 sets, daily range): BP systolic 100–135; BP diastolic 61–89; PULSE 92–110; RESP 18–32; TEMP 36.3–36.7; O2SAT 75–96
--- NOTE | 2019-10-08 00:35 | RAD_ITS ---
STUDY: X-RAY CHEST REASON FOR EXAM: Female, 59 years old. Increased shortness of breath. TECHNIQUE: AP portable chest. COMPARISON: October 05, 2019. CT chest October 05, 2019. FINDINGS: Patchy perihilar/lower lobe air space opacities left greater than right unchanged. Normal size heart. Normal mediastinum and fritz. Normal visualized pulmonary arteries. Normal visualized aortic arch and descending thoracic aorta. Normal visualized thoracic spine. Normal visualized ribs, clavicles, and shoulders. There is no demonstrated abnormality of the visualized soft tissue structures of the upper abdomen. RAD/Chest 1 View (Portable) IMPRESSION: No change in bilateral perihilar /lower lobe airspace opacities left greater than right. Electronically Signed: Will Ferrer MD at 1:36 EST , Service support ,
--- NOTE | 2019-10-08 00:36 | PCM.HOSP.N ---
Hospitalist Note Patient with increased RR, increased O2 needs, crackles/rales on exam with RT, requested ABG, portable CXR and if needed may consider CPAP/BIPAP to avoid fatigue. Added PRN albuterol. Will administer lasxi 40 mg IV x [address] Herbert update in AM and request evaluation also per Dr. Herbert who has been consulted upon patient's admission. From review of notes transfer to [facility] for pulmonary evaluation and lung Bx has been recommended and patient despite risks has continued to decline.
[2019-10-08] MEDS: 0.9% Saline Lock 10 ML Syringe IV ×5 (00:51→21:02)
[2019-10-08] MEDS: Furosemide 40 MG/4 ML Vial IV (00:51)
[2019-10-08] MEDS: Ipratropium/Albuterol Sulfate 3 ML AMPUL.NEB INHALATION ×4 (01:01→20:24)
[2019-10-08 01:10] LABS: Allen Test POS; Base Excess -7 mmol/L (-2 to +2); Blood Gas Specimen Type ART; O2 Delivery Device Nasal Can; PO2 47 mmHG (75-100); SITE L Radial; SO2 81 % (95-99); Total Carbon Dioxide 20 mmol/L; pCO2 34.8 mmHg (35-45); pH 7.34 (7.35-7.45)
--- NOTE | 2019-10-08 01:27 | CPS ---
abg drawn on 6 l/m--Po2 47 o2 increased to 10l/m via high flow nc-nurse aware-pt des well
[2019-10-08] MEDS: Clotrimazole 10 MG Troche MUCOUS MEM ×5 (05:37→21:00)
[2019-10-08] MEDS: metroNIDAZOLE 500 MG/100 ML BAG 100 MG IV ×3 (05:38→21:10)
[2019-10-08 06:58] LABS: Absolute Lymphocyte Count 0.68 X10^3/uL (0.83-4.51); Absolute Neutrophil Count 29.4 X10^3/uL (2.0-7.7); Basophil# 0.16 X10^3/uL; Basophil% 0.5 % (0-1); Eosinophil# 0.02 X10^3/uL; Eosinophils% 0.1 % (0-5); Hematocrit 41.1 % (37-47); Hemoglobin 12.7 g/dL (12.0-15.0); Lymphocyte # 0.68 X10^3/ul (4.0); Lymphocyte % 2.1 % (19-41); Mean Corp Hgb Conc 30.9 g/dL (32-36); Mean Corpuscular Hgb 30.4 pg (27.0-32.0); Mean Corpuscular Volume 98.3 fL (81-99); Mean Platelet Vol. 10.2 fl (6.2-12.0); Monocyte# 1.21 X10^3/uL; Monocyte% 3.8 % (0-10); NRBC Flagged by Analyzer 0.4 % (0-5); Neutrophil # 29.36 X10^3/uL (2.7-7.7); Neutrophil % 91.8 % (47-70); POSITIVE COUNT YES; POSITIVE DIFFERENTIAL YES; Platelet Count 240 K/mm3 (150-450); RBC Distribution Width CV 14.9 % (11.6-14.6); RBC Distribution Width SD 54.3 fl (35.1-43.9); Red Blood Count 4.18 M/mm3 (4.2-5.4)
[2019-10-08 07:11] LABS: Differential Indicated SCAN CRITERIA MET
[2019-10-08 07:28] LABS: Anion Gap 7 (5-15); BUN 25 mg/dL (7-18); BUN/Creat Ratio 17.5 RATIO (10-20); Calcium,Total 9.1 mg/dL (8.5-10.1); Chloride 109 mmol/L (98-107); Creatinine, Serum 1.43 mg/dL (0.55-1.02); EST Glomerular Filtration Rate 40 mL/min (>60); Est Glom Filt Rate - Afr Amer 48 mL/min (>60); Estimated Creatinine Clearance 39.16 ml/min; Glucose 163 mg/dL (74-106); Potassium 3.3 mmol/L (3.5-5.1); Sodium Level 140 mmol/L (136-145)
[2019-10-08] MEDS: Acetaminophen 500 MG Tablet 1000 MG PO (08:10)
[2019-10-08] MEDS: Propranolol LA 80 MG Capsule PO (08:13)
[2019-10-08] MEDS: Sertraline 100 MG Tablet PO ×2 (08:13→21:01)
[2019-10-08] MEDS: busPIRone 15 MG TABLET PO ×2 (08:13→21:00)
[2019-10-08] MEDS: Pantoprazole Sodium 40 MG Tablet PO (08:13)
--- NOTE | 2019-10-08 11:18 | DS.PCM_ITS ---
Discharge Date and Diagnosis - Problem List Patient Problems: Active and Suspected Problems (Last Reviewed 09/28/19 @ 13:58 by Shannan Sepulveda) Hypoxia (Acute) Cryptogenic organizing pneumonia (Acute) Date of Admission: 10/05/19 Date of Discharge: 10/08/19 - Primary Discharge Diagnosis Active and Suspected Problems (Last Reviewed 09/28/19 @ 13:58 by Shannan Sepulveda) Hypoxia (Acute) Cryptogenic organizing pneumonia (Acute) acute bilateral community acquired pneumonia acute hypoxic respiratory failure - Secondary Discharge Diagnosis Chronic Problems (Last Reviewed 09/28/19 @ 13:58 by Shannan Sepulveda) Palpitations (Chronic) Cardiac murmur (Chronic) Dyspnea (Chronic) Nonrheumatic mitral valve prolapse (Chronic) Long-term use of high-risk medication (Chronic) Hyperlipidemia (Chronic) Other secondary pulmonary hypertension (Chronic) Hospital Course and Treatment Imaging Results: Diagnostic Data Brain CT 10/05/19 13:42 IMPRESSION: No acute intracranial abnormality. Old infarcts in the right temporoparietal region and left parietal lobe. Chronic ischemic and atrophic changes. Electronically Signed: Rey Harris, at 14:33 EST Tel , Service support , Chest CTA 10/05/19 16:37 IMPRESSION: No evidence of pulmonary embolism. Redemonstrated extensive bilateral patchy groundglass opacification with prominence of interstitial lines. Differential is broad and with etiologies including edema, alveolar proteinosis, sarcoidosis, infection, neoplasm, inflammatory disorders, and inhalational processes among others. Clinical correlation is recommended. Pulmonary consultation is suggested. Prominence of the pulmonary arteries suggesting pulmonary arterial hypertension. Electronically Signed: David Romero, at 18:01 EST Tel , Service support , Chest X-Ray 10/08/19 00:35 IMPRESSION: No change in bilateral perihilar /lower lobe airspace opacities left greater than right. Electronically Signed: Will Ferrer MD at 1:36 EST , Service support , pulmonology- Dr Sibilia Operations: None Procedures: None Summary of Care Provided: The patient is a 59 year old F with an extensive past medical history as listed. She was admitted through the ED on 10/05/2019 with a complaint of headache have been going on for a couple of days. Patient denied any fever, chills, shortness of breath, cough, palpitations, dizziness, chest pain, abdominal pain, diarrhea or vomiting. The only persistent symptom was the headache so she decided to go and see a PCP. Of note, her mother stated that on the night before admission, her oxygen saturation was around 90 so she put her on 2 L of oxygen which she uses as needed at home because she thought it would help with a headache. Patient denied being short of breath at that time. She states she has used her home oxygen in a while. In her PCPs office her saturation was down in the 70s so she was sent to the ED. The ED she was initially saturating at 76% and required 2 L of oxygen to go up to around 90%. Vitals were significant for pulse rate of 111 and respiratory rate of 22. Chemistry showed potassium of 3.3 and creatinine of 1.67 which is around her baseline. Lactic acid was 1.4. BNP was 46.9 initial troponin was negative. CBC showed white cell count of 23.7, they must be stated that her white cell count is usually chronically elevated. Patient is also on chronic steroids. Chest x-ray showed progressive airspace disease in the left hemithorax as well as in the right lower lobe with blunting of both costophrenic angles. She was admitted to be managed for acute hypoxic respiratory failure due to bilateral pneumonia. She was started on IV levaquin and IV flagyl. Pulmonology was consulted. CTA of his chest was negative for PE, but showed an extensive bilateral patchy groundglass opacities with prominent interstitial lines and prominence of pulmonary arteries suggesting pulmonary hypertension. Pulmonology reviewed patient and per patient with pulmonology, he had thought that patient had cryptogenic pneumonia and had been treating her for this. Patient had refused bronchoscopy with biopsy all this well. However patient had not been responding to chronic steroids even though her intermittent flareups did respond to antibiotics. Pulmonology was also concerned that patient's DLCO. Last pulmonary function tests was down to 38. Recommendation was therefore for patient to have open lung biopsy which would require transfer. This was discussed with patient and her family and was recommended that he be transferred to [facility]. Patient however adamantly refused transfer as she did not want to leave was started. On the night of 10/07/2019, patient became more short of breath requiring 12 L of oxygen. ABG done showed pH of 7.34 with PCO2 of 34.8 and PO2 of only 47 whilst on 6 L of oxygen. Patient and family again were extensively counseled about the urgent need for transfer due to patient's deteriorating condition. At thiis point patient and family were agreeable decision was made to transfer patient to [facility]. Accepting physician was the carpet cutter Dr. Vann. He was seen and examined prior to discharge. She had no complaints and felt well despite her being on 12 L of oxygen. Review of systems otherwise negative. Labs reviewed. o/e: Vital Signs Height 5 ft 6 in Weight: 164 lb 14.492 oz Weight in Pounds 164.9 lbs Pulse Ox 96 Temperature 97.8 F Pulse Rate 93 Respiratory Rate 27 Blood Pressure [BP] 118/67 Blood Pressure 120/73 Blood Pressure Position [BP] Semi-Fowlers Blood Pressure Position Semi-Fowlers General: Alert, Oriented x3, Cooperative, No apparent distress, HEENT: Atraumatic, PERRLA, EOMI, Normocephalic Oral: Dry Mucosa Neck: Supple, No JVD, Negative Carotid Bruits Lungs: - - coarse crackles bibasally, decreased breath sounds bibasally. on 12L of oxygen by nasal canula Cardiovascular: Regular rate, Regular Rhythm, Normal S1, Normal S2, No murmurs Abdomen: Bowel Sounds Present, Soft, Non Tender, Non-Distended, No Hepato- splenomegaly Extremities: No clubbing, No cyanosis, No edema, Capillary Refill Less than 3 Seconds Skin: No rashes, No breakdown Musculoskeletal: No Tenderness to Palpation of Joints or Extremities Lymphatic: No Cervical, Supraclavicular, or Inguinal Adenopathy Neurological: Cranial nerves II-XII grossly intact, Neuro grossly intact, Motor Exam 5/5 strength throughout Psych/Mental Status: Normal Affect, Appropriate, Alert and oriented to time, place, person, mood and affect Plan is for transfer to [facility] Patient Problems: Active and Suspected Problems (Last Reviewed 09/28/19 @ 13:58 by Shannan Sepulveda) Hypoxia (Acute) Cryptogenic organizing pneumonia (Acute) - Physical Exam Vitals/I&O's: Vital Signs Temp Pulse Resp BP Pulse Ox 97.4 F L 92 29 H 120/72 93 10/08/19 09:00 10/08/19 10:00 10/08/19 10:00 10/08/19 10:00 10/08/19 10:00 Oxygen Flow Rate (L/min) 10 Oxygen Delivery Method Nasal Cannula Weight: 164 lb 14.492 oz Body Mass Index (BMI) 26.6 Intake and Output for Last 24 Hours 10/06/19 10/07/19 10/08/19 23:59 23:59 23:59 Intake Total 2295.01 / 2295.01 1928.33 / 1928.33 149.92 / 149.92 Output Total 200 / 200 2275 / 2275 Balance 2095.01 / 2095.01 1928.33 / 1928.33 -2125.08 / -2125.08 Microbiology Past 72 Hours 10/05/19 14:50 Blood Culture (Wb) - Right Hand Blood Culture - Preliminary No growth in 48 hours. 10/05/19 14:41 Blood Culture (Wb) - Anticubital Left Blood Culture - Preliminary No growth in 48 hours. 10/06/19 00:30 Mucosa - Nose Respiratory Panel (PCR) - Final 10/05/19 20:19 Urine, Clean Catch Streptococcus pneumoniae Antigen (M - Final 10/05/19 20:29 Urine, Clean Catch Legionella Antigen - Final Laboratory Results 10/08/19 01:04: Specimen Type ART, Sample Site L Radial, pH 7.34 L, Bicarbonate Actual 19.0 L, POC Total CO2 20, Base Excess -7 L, O2 Saturation 81 L, ABG pCO2 34.8 L, ABG pO2 47 L, Arsh Test POS, O2 Delivery Device Nasal Can, Liter Flow 6.0, Blood Gas Notified Whom HOSP 10/08/19 06:25: WBC 32.0 H*, RBC 4.18 L, Hgb 12.7, Hct 41.1, MCV 98.3, MCH 30.4, MCHC 30.9 L, RDW Std Deviation 54.3 H, RDW Coeff of Genevieve 14.9 H, Plt Count 240, MPV 10.2, Immature Gran % (Auto) 1.700 H, Neut % (Auto) 91.8 H, Lymph % (Auto) 2.1 L, [place] % (Auto) 3.8, Eos % (Auto) 0.1, Baso % (Auto) 0.5, Absolute Neuts (auto) 29.4 H, Absolute Lymphs (auto) 0.68 L, Nucleated RBC % 0.4, Diff Path Review March10/08/19 06:25: Sodium 140, Potassium 3.3 L, Chloride 109 H, Carbon Dioxide 24.0, Anion Gap 7, BUN 25 H, Creatinine 1.43 H, Estim Creat Clear Calc 39.16, Est GFR (MDRD) Af Amer 48 L, Est GFR (MDRD) Non-Af 40 L, BUN/Creatinine Ratio 17.5, Glucose 163 H, Calcium 9.1 Current Medications Acetaminophen (Tylenol) 1,000 mg PO Q8H PRN PRN PRN Reason: HEADACHE Last Admin: 10/08/19 08:10 Dose: 1,000 mg Documented by: Albuterol Sulfate (Ventolin Aerosols) 2.5 mg INHALATION Q4H PRN PRN Reason: SOB &/OR WHEEZING Albuterol Sulfate (Ventolin Aerosols) 2.5 mg INHALATION Q2H PRN PRN PRN Reason: dyspnea, wheezing Albuterol/Ipratropium (Duoneb) 3 ml INHALATION Q6H.RT [facility] Last Admin: 10/08/19 06:56 Dose: 3 ml Documented by: Atorvastatin Calcium (Lipitor) 10 mg PO QHS [facility] Last Admin: 10/07/19 22:03 Dose: 10 mg Documented by: Buspirone HCl (Buspar) 15 mg PO BID [facility] Last Admin: 10/08/19 08:13 Dose: 15 mg Documented by: Clotrimazole (Mycelex) 10 mg MUCOUS MEM 5X/DAY [facility] Last Admin: 10/08/19 08:13 Dose: 10 mg Documented by: Desipramine HCl (Norpramin) 75 mg PO QHS [facility] Last Admin: 10/07/19 22:08 Dose: 75 mg Documented by: Dextrose (D50w Syringe) 0 gm IV X1 PRN; Protocol PRN Reason: Hypoglycemia Ergocalciferol (Vitamin D) 50,000 unit PO QMONTH [facility] Glucagon () 1 mg IM .X1 PRN PRN Reason: Hypoglycemia Levofloxacin (Levaquin Iv) 750 mg in 150 mls @ 100 mls/hr IV Q48H [facility] Last Infusion: 10/08/19 00:25 Dose: Infused Documented by: Metronidazole (Flagyl) 500 mg in 100 mls @ 100 mls/hr IV Q8 [facility] Last Infusion: 10/08/19 06:38 Dose: Infused Documented by: Sodium Chloride () 250 mls @ 15 mls/hr IV .[id number] PRN PRN Reason: Saline Flush Sodium Chloride () 500 mls @ 15 mls/hr IV PRN PRN PRN Reason: Blood Transfusion Last Infusion: 10/08/19 07:10 Dose: 0 mls/hr Documented by: Meclizine HCl (Antivert) 25 mg PO BID PRN PRN Reason: Vertigo Last Admin: 10/05/19 22:54 Dose: 25 mg Documented by: Methylprednisolone (Solu-Medrol) 40 mg IV Q8 [facility] Last Admin: 10/08/19 05:38 Dose: 40 mg Documented by: Montelukast Sodium (Singulair) 10 mg PO QPM [facility] Last Admin: 10/07/19 20:43 Dose: 10 mg Documented by: Ondansetron HCl (Zofran) 4 mg IV Q8H PRN PRN PRN Reason: NAUSEA/VOMITING Pancrelipase (Creon Dr 6,000 Unit Capsule) 2 capsule PO TIDCM [facility] Last Admin: 10/08/19 08:09 Dose: 2 capsule Documented by: Pantoprazole Sodium (Protonix) 40 mg PO DAILY [facility] Last Admin: 10/08/19 08:13 Dose: 40 mg Documented by: Propranolol HCl (Inderal La) 80 mg PO DAILY [facility] Last Admin: 10/08/19 08:13 Dose: 80 mg Documented by: Sertraline HCl (Zoloft) 100 mg PO BID [facility] Last Admin: 10/08/19 08:13 Dose: 100 mg Documented by: Sodium Chloride () 10 - 40 ml IV UD PRN PRN Reason: SALINE FLUSH Last Admin: 10/08/19 07:00 Dose: 10 ml Documented by: Tizanidine HCl (Zanaflex) 4 mg PO TID PRN PRN Reason: SPASMS Last Admin: 10/05/19 22:54 Dose: 4 mg Documented by: Discharge Diet: Low fat/ Low Cholesterol Home Medications: Medications to take at Discharge ergocalciferol (vitamin D2) 50,000 unit capsule 50,000 unit PO QMONTH 10/28/17 [id number] 6,000-19,000-30,000 unit capsule,delayed rel 2 cap PO TID 10/28/17 propranolol ER 80 mg capsule,24 hr,extended release 80 mg PO DAILY cap 10/28/17 albuterol sulfate HFA 90 mcg/actuation aerosol inhaler 1 puff INHALATION Q6H PRN 09/16/18 montelukast 10 mg tablet 10 mg PO QPM 09/16/18 Sertraline HCl [Zoloft] 100 mg PO BID 02/09/19 buspirone 15 mg tablet 15 mg PO BID tab 09/28/19 clotrimazole 10 mg angela 10 mg MUCOUS MEMBRANE 5X/DAY PRN 09/28/19 conjugated estrogens 0.3 mg tablet 0.3 mg PO DAILY 09/28/19 desipramine 75 mg tablet 75 mg PO QHS 09/28/19 fluticasone propionate 110 mcg/actuation HFA aerosol inhaler 2 puff INHALATION BID 09/28/19 meclizine 25 mg tablet 25 mg PO BID PRN 09/28/19 tizanidine 4 mg tablet 4 mg PO TID PRN 09/28/19 Atorvastatin Calcium [Lipitor] 10 mg PO QHS 10/05/19 Omeprazole 40 mg PO DAILY 10/05/19 Prednisone 5 mg PO TID 10/05/19 Primary Care Physician: Estefania Casper MD [Primary Care Provider] - Please Follow Up With: Estefania Casper MD Disposition: Acute care Hospital Minutes spent on discharge:: 50 Patient Condition:: Guarded Medical Necessity - Tobacco Use Smoking Status: Never smoker Tobacco Use: Non-smoker Meaningful Use Info Meaningful Use Diagnoses (Choose all that apply): None applicable Code Visit Inpatient E&M: 30759 Disch Hosp
[2019-10-08] MEDS: Montelukast 10 MG Tablet PO (21:00)
[2019-10-08] MEDS: Atorvastatin Calcium 10 MG Tablet PO (21:02)
[2019-10-09 10:51] LABS: Pathologist Review Reviewed
== END 2019-10-08 23:40 | disposition short-term general hospital (02) | DRG 133 ==
LOC: ED 16:00 → PCU 16:21
PROVIDERS: Admitting Provider Student in an Organized Health Care Education/Training Program; Emergency Provider Emergency Medicine; Family Provider Internal Medicine; PCP Internal Medicine; Referring Provider Student in an Organized Health Care Education/Training Program; Visit Provider Student in an Organized Health Care Education/Training Program
DX: J96.01 Acute respiratory failure with hypoxia (principal); J84.116 Cryptogenic organizing pneumonia; E78.5 Hyperlipidemia, unspecified; E87.6 Hypokalemia; I34.1 Nonrheumatic mitral (valve) prolapse; I27.29 Other secondary pulmonary hypertension; N18.3 Chronic kidney disease, stage 3 (moderate); Z79.899 Other long term (current) drug therapy; Z86.73 Personal history of transient ischemic attack (TIA), and cerebral infarction without residual deficits; Z79.52 Long term (current) use of systemic steroids
CPT/HCPCS: 36415; 36600; 70450; 71045; 71275; 80048; 82803; 83605; 83880; 84484; 85025; 87040; 87449; 87633; 93005; 94640; 97110; 97162; 97166; 97530; 97535; 99251; 99284; J7030; J7040; Q9967; A4216; G0463; J1940